=== PATIENT | female | born 1990 | race Caucasian/White ===

== ENCOUNTER 2016-11-27 21:02 | Emergency (ER) | payer SELFPAY ==
[2016-11-27 23:11] LABS: ABSOLUTE EOSINOPHILS # (AUTO) 0.3 10^3/uL (0.0-0.6); ABSOLUTE LYMPHOCYTES (AUTO) 2.3 10^3/uL (0.5-4.7); ABSOLUTE MONOCYTES (AUTO) 0.8 10^3/uL (0.1-1.4); ABSOLUTE NEUT (AUTO) 4.6 10^3/uL (1.7-8.2); BASOPHILS % (AUTO) 0.6 % (0-2); EOSINOPHILS % (AUTO) 3.3 % (0-6); HEMATOCRIT 38.7 % (36.0-47.0); HEMOGLOBIN 13.4 g/dL (12.0-15.5); HGB HCT DIFFERENCE 1.5; LYMPHOCYTES % (AUTO) 28.5 % (13-45); MEAN CORPUSCULAR HEMOGLOBIN 30.2 pg (27.0-33.4); MEAN CORPUSCULAR HGB CONC 34.5 g/dL (32.0-36.0); MEAN CORPUSCULAR VOLUME 87 fl (80-97); MONOCYTES % (AUTO) 10.2 % (3-13); RED BLOOD COUNT 4.42 10^6/uL (3.72-5.28); RED CELL DISTRIBUTION WIDTH 13.6 % (11.5-14.0); SEGMENTED NEUTROPHILS % (AUTO) 57.4 % (42-78)
[2016-11-27] MEDS ORDERED: MORPHINE SULFATE IR 15 MG TABLET PO ONE (23:12)
[2016-11-27] MEDS ORDERED: ONDANSETRON 4 MG TAB.RAPDIS PO ONE (23:12)
--- NOTE | 2016-11-27 23:14 | ER Document Report ---
ED General - General Chief Complaint: Rectal Bleeding Stated Complaint: BLOOD IN STOOL,ABDOMINAL PAIN,FEVER Time Seen by Provider: 11/27/16 22:23 Notes: Patient is a 26-year-old female who presents with 1 year of rectal bleeding, daily abdominal pain, no prior GI evaluation although she was evaluated in the emergency department on 2 separate occasions approximately one year ago with a CT scan of the abdomen and pelvis 2 with noted to be normal and presents with concerns that her stool now also contains mucus. She states that she often has bloody, loose bowel movements but has not ever had mucus in the stool. She also notes an associated diffuse abdominal cramping that is moderate in nature. Nothing improves or worsens her symptoms. She denies any associated vomiting but does note associated nausea. Notes that shes had a subjective fever at home but has not recorded temperature. She denies any dysuria, vaginal bleeding or vaginal discharge. No sitter abdominal pain today is unchanged from her daily abdominal pain. States she was unable to follow-up with GI medicine last year due to lack of insurance coverage which she now has. TRAVEL OUTSIDE OF THE [place] IN LAST 30 DAYS: No - Related Data Allergies/Adverse Reactions: latex [Latex] Allergy (Severe, Verified 07/17/16 09:34) swelling Past Medical History - General Information source: Patient - Social History Smoking Status: Never Smoker Frequency of alcohol use: None Drug Abuse: None Lives with: Spouse/Significant other Family History: Reviewed & Not Pertinent Patient has suicidal ideation: No Patient has homicidal ideation: No - Past Medical History Cardiac Medical History: Reports: Hx Heart Murmur - hx of Denies: Hx Hypertension Neurological Medical History: Denies: Hx Cerebrovascular Accident, Hx Seizures Renal/ Medical History: Denies: Hx Peritoneal Dialysis GI Medical History: Reports: Hx Gastroesophageal Reflux Disease, Hx Ulcer - gastric hx of. Denies: Hx Hiatal Hernia Psychiatric Medical History: Infectious Medical History: Denies: Hx HIV Past Surgical History: Reports: Hx Section - x 3, Hx Tubal Ligation - Immunizations Immunizations up to date: Yes Hx Diphtheria, Pertussis, Tetanus Vaccination: Yes - 2009 Review of Systems - Review of Systems Notes: Constitutional: Negative for fever. HENT: Negative for sore throat. Eyes: Negative for visual changes. Cardiovascular: Negative for chest pain. Respiratory: Negative for shortness of breath. Gastrointestinal: Positive for abdominal pain and hematochezia Genitourinary: Negative for dysuria. Musculoskeletal: Negative for back pain. Skin: Negative for rash. Neurological: Negative for headaches, weakness or numbness. 10 point ROS negative except as marked above and in HPI. Physical Exam - Vital signs Vitals: Temp Pulse Resp BP Pulse Ox 97.9 F 60 20 127/73 H 96 11/27/16 21:13 11/27/16 21:13 11/27/16 21:13 11/27/16 21:13 11/27/16 21:13 Interpretation: Normal Notes: PHYSICAL EXAMINATION: GENERAL: Well-appearing, well-nourished and in no acute distress. HEAD: Atraumatic, normocephalic. EYES: Pupils equal round and reactive to light, extraocular movements intact, sclera anicteric, conjunctiva are normal. ENT: nares patent, oropharynx clear without exudates. Moist mucous membranes. NECK: Normal range of motion, supple without lymphadenopathy LUNGS: Breath sounds clear to auscultation bilaterally and equal. No wheezes rales or rhonchi. HEART: Regular rate and rhythm without murmurs ABDOMEN: Soft, nontender, normoactive bowel sounds. No guarding, no rebound. No masses appreciated. Rectal: No gross blood or masses. Brown stool. EXTREMITIES: Normal range of motion, no pitting or edema. No cyanosis. NEUROLOGICAL: No focal neurological deficits. Moves all extremities spontaneously and on command. PSYCH: Normal mood, normal affect. SKIN: Warm, Dry, normal turgor, no rashes or lesions noted. Course - Re-evaluation Re-evalutation: 11/27/16 23:13 Patient presents with nearly one year of rectal bleeding and nearly daily abdominal pain. She presents today now with some mucus in the stool which is approximately come to the emergency department. She isn't nauseated without vomiting. Overall no focal abdominal tenderness on exam and she is otherwise well in appearance, vitals normal limits. Primary concern at this time would be for an inflammatory bowel disease given the duration of patient's symptoms and she has not yet been able to follow-up with GI. However, patient now has insurance she should be able to get expeditious outpatient GI evaluation including colonoscopy which I believe is the most diagnostically appropriate tests. Rectal exam here without any shira blood. Labs are otherwise unremarkable plan for discharge home with recommendations for close outpatient GI follow-up. 11/27/16 23:47 Laboratories overall unremarkable. Stool guaiac is negative. I have recommend close GI follow-up.At this time will discharge with return precautions and follow-up recommendations. Verbal discharge instructions given a the bedside and opportunity for questions given. Medication warnings reviewed. Patient is in agreement with this plan and has verbalized understanding of return precautions and the need for primary care follow-up in the next 24-72 hours. - Vital Signs Vital signs: Temp Pulse Resp BP Pulse Ox 97.9 F 60 12 123/67 97 11/27/16 21:13 11/27/16 21:13 11/27/16 23:45 11/27/16 23:01 11/27/16 23:45 - Laboratory Result Diagrams: 11/27/16 23:01 11/27/16 23:01 Laboratory results interpreted by me: 11/27/16 23:01 Plt Count 100 L Discharge - Discharge Clinical Impression: Rectal bleeding Abdominal pain Qualifiers: Abdominal location: generalized Qualified Code(s): R10.84 - Generalized abdominal pain Condition: Good Disposition: HOME, SELF-CARE Additional Instructions: You need to follow-up with GI medicine urgently given the duration of your symptoms. Your labs are otherwise normal today. Please take the Zofran that has been given to you as needed for nausea. Return if you have a fever greater than 101F, pass out, have worsening abdominal pain, or have any other symptoms that are worrisome to you.
[2016-11-27 23:16] VITALS: BP 123/67
[2016-11-27 23:25] LABS: ALANINE AMINOTRANSFERASE 24 U/L (9-52); ALBUMIN 3.9 g/dL (3.5-5.0); ALKALINE PHOSPHATASE 69 U/L (38-126); ANION GAP 11 (5-19); ASPARTATE AMINO TRANSFERASE 15 U/L (14-36); BILIRUBIN,DIRECT 0.2 mg/dL (0.0-0.4); BILIRUBIN,TOTAL 0.5 mg/dL (0.2-1.3); BLOOD UREA NITROGEN 10 mg/dL (7-20); CALCIUM 9.4 mg/dL (8.4-10.2); CARBON DIOXIDE 24 mmol/L (22-30); CHLORIDE 106 mmol/L (98-107); CREATININE RESULT 0.54 mg/dL (0.52-1.25); GLUCOSE 83 mg/dL (75-110); LIPASE 36.4 U/L (23-300); POTASSIUM 3.7 mmol/L (3.6-5.0); SODIUM 141.3 mmol/L (137-145); TOTAL PROTEIN 6.6 g/dL (6.3-8.2)
[2016-11-27] MEDS ORDERED: ONDANSETRON ODT 4 MG TAB (6 TAB/DSPK) PO PRN (23:48)
== END 2016-11-27 23:49 | disposition home or self-care (01) ==
LOC: ER 21:02
DX: K62.5 Hemorrhage of anus and rectum (principal); R10.84 Generalized abdominal pain; R19.5 Other fecal abnormalities; Z91.040 Latex allergy status; R11.0 Nausea; Z87.19 Personal history of other diseases of the digestive system; Z87.11 Personal history of peptic ulcer disease; Z98.51 Tubal ligation status
CPT/HCPCS: 99283; 36415; 83690; 84703; 85025; 82272; 80053; S0119

== ENCOUNTER → 2016-11-30 | Outpatient (CLI) | payer OTHER | LOC: CCC 10:09 | DX: R10.84 Generalized abdominal pain (principal) | CPT/HCPCS: 36415; 86677 ==

== ENCOUNTER 2017-04-19 23:00 | Emergency (ER) | payer SELFPAY ==
[2017-04-20] MEDS ORDERED: ASPIRIN 81 MG TABLET, CHEWABLE PO ONE (01:02)
[2017-04-20] MEDS ORDERED: ONDANSETRON 4 MG TAB.RAPDIS PO ONE (01:04)
--- NOTE | 2017-04-20 01:05 | ER Document Report ---
ED Medical Screen (RME) - General Chief Complaint: Chest Pain Stated Complaint: CHEST PAIN Time Seen by Provider: 04/20/17 01:02 Mode of Arrival: Ambulatory Information source: Patient Notes: Patient presents complaining of right-sided chest pain for the past 2 days. Patient does complain of nausea with headache. Patient states that she had a syncopal episode around 7 PM while standing today. Patient denies any cough or cold symptoms. Patient does report a family history history of early heart disease. hx: Tubal ligation, TRAVEL OUTSIDE OF THE [place] IN LAST 30 DAYS: No - Related Data Allergies/Adverse Reactions: latex [Latex] Allergy (Severe, Verified 07/17/16 09:34) swelling Past Medical History - Past Medical History Cardiac Medical History: Reports: Hx Heart Murmur - hx of Denies: Hx Hypertension Neurological Medical History: Denies: Hx Cerebrovascular Accident, Hx Seizures Renal/ Medical History: Denies: Hx Peritoneal Dialysis GI Medical History: Reports: Hx Gastroesophageal Reflux Disease, Hx Ulcer - gastric hx of. Denies: Hx Hiatal Hernia Psychiatric Medical History: Infectious Medical History: Denies: Hx HIV Past Surgical History: Reports: Hx Section - x 3, Hx Tubal Ligation - Immunizations Immunizations up to date: Yes Hx Diphtheria, Pertussis, Tetanus Vaccination: Yes - 2009 Physical Exam - Vital signs Vitals: Temp Pulse Resp BP Pulse Ox 98.3 F 88 18 121/72 96 04/19/17 23:23 04/19/17 23:23 04/19/17 23:23 04/19/17 23:23 04/19/17 23:23 Course - Vital Signs Vital signs: Temp Pulse Resp BP Pulse Ox 98.3 F 88 18 121/72 96 04/19/17 23:23 04/19/17 23:23 04/19/17 23:23 04/19/17 23:23 04/19/17 23:23
--- NOTE | 2017-04-20 01:49 | ER Document Report ---
ED General - General Chief Complaint: Chest Pain Stated Complaint: CHEST PAIN Time Seen by Provider: 04/20/17 01:02 Mode of Arrival: Ambulatory Notes: Patient is a 26-year-old female presents with complaint of pain that goes from her right upper chest into her right shoulder and upper right neck into the back of her head and then down her right arm. She said the pain started in her right chest and shoulder area before it started to radiate down her arm and up into her head. She said she also passed out today around 7 PM. She said she got up to go get water. She says she passed out when she walked to the sink. No fevers. No vomiting. No trauma. No diarrhea. No history of cardiac issues. She does not take any medications. She is otherwise healthy. TRAVEL OUTSIDE OF THE [place] IN LAST 30 DAYS: No - Related Data Allergies/Adverse Reactions: latex [Latex] Allergy (Severe, Verified 07/17/16 09:34) swelling Past Medical History - General Information source: Patient - Social History Smoking Status: Unknown if Ever Smoked Frequency of alcohol use: None Drug Abuse: None Family History: Reviewed & Not Pertinent Patient has suicidal ideation: No Patient has homicidal ideation: No - Past Medical History Cardiac Medical History: Reports: Hx Heart Murmur - hx of Denies: Hx Hypertension Neurological Medical History: Denies: Hx Cerebrovascular Accident, Hx Seizures Renal/ Medical History: Denies: Hx Peritoneal Dialysis GI Medical History: Reports: Hx Gastroesophageal Reflux Disease, Hx Ulcer - gastric hx of. Denies: Hx Hiatal Hernia Psychiatric Medical History: Infectious Medical History: Denies: Hx HIV Past Surgical History: Reports: Hx Section - x 3, Hx Tubal Ligation - Immunizations Immunizations up to date: Yes Hx Diphtheria, Pertussis, Tetanus Vaccination: Yes - 2009 Review of Systems - Review of Systems Notes: My Normal Review Basic REVIEW OF SYSTEMS: CONSTITUTIONAL : Denies fever, chills, or sweats. Denies recent illness. EENT: Denies eye, ear, throat, or mouth pain or symptoms. Denies nasal or sinus congestion. CARDIOVASCULAR: Right upper chest pain RESPIRATORY: Denies cough, cold, or chest congestion. Denies shortness of breath, difficulty breathing, or wheezing. GASTROINTESTINAL: Denies abdominal pain. Denies nausea, vomiting, or diarrhea. Denies constipation. Last BM: MUSCULOSKELETAL: Right shoulder pain SKIN: Denies rash or skin lesions.. NEUROLOGICAL: Denies altered mental status or loss of consciousness. Denies headache. Denies weakness or paralysis or loss of use of either side. Denies problems with gait or speech. Denies sensory or motor loss. ALL OTHER SYSTEMS REVIEWED AND NEGATIVE. Physical Exam - Vital signs Vitals: Temp Pulse Resp BP Pulse Ox 98.3 F 88 18 121/72 96 04/19/17 23:23 04/19/17 23:23 04/19/17 23:23 04/19/17 23:23 04/19/17 23:23 - Notes Notes: General Appearance: Well nourished, alert, cooperative, no acute distress, moderate obvious discomfort. Vitals: reviewed, See vital signs table. Head: no swelling or tenderness to the head Eyes: PERRL, EOMI, Conjuctiva clear Mouth: No decreasd moisture Chest wall: Pain to palpation over the right upper chest wall near the shoulder. Neck: Supple, pain to palpation over the right trapezius muscle going into the right cervical paraspinal musculature. Lungs: No wheezing, No rales, No rhonci, No accessory muscle use, good air exchange bilaterally. Heart: Normal rate, Regular rythm, No murmur, no rub Abdomen: Normal BS, soft, No rigidity, No abdominal tenderness, No guarding, no rebound, no abdominal masses, no organomegaly Extremities: strength 5/5 in all extremities, good pulses in all extremities, pain to palpation of the right shoulder and right trapezius muscle. Pain with movement of right shoulder., no edema. Skin: warm, dry, appropriate color, no rash Neuro: speech clear, oriented x 3, normal affect, responds appropriately to questions. Course - Re-evaluation Re-evalutation: 04/20/17 03:52 On exam patient's pain is easily reproducible with palpation does follow a cervical type pattern that the pain starts along the trapezius muscles and cervical paraspinal musculature and then radiates up into her head and then down into her right shoulder down her right arm and into her right upper chest. All these areas are very tender to touch. I did obtain a CT of her chest being that the pain did come on suddenly and does have this lateralizing type of symptom from chest area and therefore I want to rule out possibility of dissection. CT was negative. This time patient is safe to be discharged home. I encouraged her return to ER immediately if she has worsening pain, focal to bleeding, fevers, or feels unwell. Patient will be placed on muscle relaxer as well as anti-inflammatory medications. Patient agrees with plan and will be discharged home. Dictation of this chart was performed using voice recognition software; therefore, there may be some unintended grammatical errors. - Vital Signs Vital signs: Temp Pulse Resp BP Pulse Ox 98.3 F 88 21 H 121/72 96 04/19/17 23:23 04/19/17 23:23 04/20/17 02:45 04/19/17 23:23 04/20/17 02:45 - Laboratory Result Diagrams: 04/20/17 01:45 04/20/17 01:45 Laboratory results interpreted by me: 04/20/17 04/20/17 04/20/17 01:35 01:45 01:45 Plt Count 101 L Chloride 109 H Urine Blood SMALL H Urine Urobilinogen 4.0 H Ur Leukocyte Esterase MODERATE H - EKG Interpretation by Me Additional EKG results interpreted by me: 04/20/17 01:49 EKG is reviewed and interpreted by me. EKG shows normal sinus rhythm with rate of [address] segment elevation or depression. No ischemic T-wave inversions. DE interval, QRS duration, QTc intervals are within normal range. No old EKG available for comparison. 04/20/17 02:57 EKG #2 is reviewed and interpreted by me. EKG shows normal sinus rhythm with a rate of [address] segment elevation or depression. Lead V5 is a large amount of artifact making it difficult to interpret. No ischemic appearing T waves. DE interval, QRS duration, QTc intervals are within normal range. Discharge - Discharge Clinical Impression: Neck pain Headache Qualifiers: Headache type: unspecified Headache chronicity pattern: acute headache Intractability: not intractable Qualified Code(s): R51 - Headache Chest pain Qualifiers: Chest pain type: unspecified Qualified Code(s): R07.9 - Chest pain, unspecified Condition: Good Disposition: HOME, SELF-CARE Additional Instructions: Your laboratory evaluation does not show any concerning abnormalities. CT scan was performed of your chest to rule out blood clots in your lungs and something called an aortic dissection. The CT scan was normal. Your pain on exam seems very consistent with that of pain radiating from the neck. I will place you on muscle relaxers and anti-inflammatories for the next few days. We will have you use warm compresses. I will give you a few days off work. I encourage you to return to the ER if you have worsening pain, difficulty breathing, or fevers. Prescriptions: Cyclobenzaprine HCl [Flexeril 10 mg Tablet] 10 mg PO TIDP PRN #15 tab PRN Reason: Naproxen [Naprosyn 250 mg Tablet] 250 mg PO BID #15 tablet Forms: Return to Work
[2017-04-20] MEDS ORDERED: NORMAL SALINE 1000 ML 1,000 ML IV ONE (01:57)
[2017-04-20] MEDS ORDERED: MORPHINE SULFATE 10 MG/ML INJ IV ONE (01:57)
[2017-04-20 02:02] LABS: ABSOLUTE EOSINOPHILS # (AUTO) 0.1 10^3/uL (0.0-0.6); ABSOLUTE LYMPHOCYTES (AUTO) 1.9 10^3/uL (0.5-4.7); ABSOLUTE MONOCYTES (AUTO) 0.5 10^3/uL (0.1-1.4); ABSOLUTE NEUT (AUTO) 2.2 10^3/uL (1.7-8.2); BASOPHILS % (AUTO) 0.3 % (0-2); EOSINOPHILS % (AUTO) 1.5 % (0-6); HEMATOCRIT 40.3 % (36.0-47.0); HEMOGLOBIN 14.2 g/dL (12.0-15.5); HGB HCT DIFFERENCE 2.3; MEAN CORPUSCULAR HEMOGLOBIN 30.8 pg (27.0-33.4); MEAN CORPUSCULAR HGB CONC 35.3 g/dL (32.0-36.0); MEAN CORPUSCULAR VOLUME 87 fl (80-97); MONOCYTES % (AUTO) 10.2 % (3-13); RED BLOOD COUNT 4.61 10^6/uL (3.72-5.28); RED CELL DISTRIBUTION WIDTH 13.4 % (11.5-14.0); WHITE BLOOD COUNT 4.6 10^3/uL (4.0-10.5)
[2017-04-20 02:24] LABS: ALANINE AMINOTRANSFERASE 27 U/L (9-52); ALKALINE PHOSPHATASE 58 U/L (38-126); ANION GAP 11 (5-19); ASPARTATE AMINO TRANSFERASE 17 U/L (14-36); BILIRUBIN,DIRECT 0.3 mg/dL (0.0-0.4); BILIRUBIN,TOTAL 0.5 mg/dL (0.2-1.3); BLOOD UREA NITROGEN 11 mg/dL (7-20); CALCIUM 9.2 mg/dL (8.4-10.2); CARBON DIOXIDE 23 mmol/L (22-30); CHLORIDE 109 mmol/L (98-107); CREATININE RESULT 0.62 mg/dL (0.52-1.25); GLUCOSE 88 mg/dL (75-110); POTASSIUM 3.9 mmol/L (3.6-5.0); SODIUM 143.4 mmol/L (137-145); TOTAL PROTEIN 6.6 g/dL (6.3-8.2)
[2017-04-20 02:25] LABS: APPEARANCE,URINE SLIGHTLY-CLOUDY; BILIRUBIN,URINE NEGATIVE (NEGATIVE); GLUCOSE, URINE NEGATIVE (NEGATIVE); KETONES,URINE NEGATIVE (NEGATIVE); LEUKOCYTE ESTERASE,URINE MODERATE (NEGATIVE); NITRITE,URINE NEGATIVE (NEGATIVE); PROTEIN,URINE NEGATIVE (NEGATIVE); URINE SPECIFIC GRAVITY 1.028
[2017-04-20 02:52] LABS: URINE BARBITURATES SCREEN NEGATIVE; URINE METHADONE SCREEN NEGATIVE; URINE OPIATES LOW NEGATIVE; URINE PHENCYCLIDINE SCREEN NEGATIVE
--- NOTE | 2017-04-20 03:34 | RADIOLOGY REPORT (SQ) ---
EXAM DESCRIPTION: CHEST PA/LAT CLINICAL HISTORY: 26 years, Female, cp COMPARISON: Chest radiographs of July 17, 2016. NUMBER OF VIEWS: 2 TECHNIQUE: Radiographic technique. LIMITATIONS: None. FINDINGS: Cardiac size and pulmonary vasculature are normal. Lungs are clear. No pleural effusions or pneumothorax. Bones are intact on this single view. No free peritoneal gas layering under either hemidiaphragm. IMPRESSION: Normal chest radiographs. 2010 [employer]- All Rights Reserved
--- NOTE | 2017-04-20 03:39 | RADIOLOGY REPORT (SQ) ---
EXAM: CT ANGIOGRAM OF THE CHEST USING INTRAVENOUS ADMINISTRATION OF NONIONIC IODINATED CONTRAST MATERIAL. CLINICAL INDICATION: Chest pain. Right shoulder pain. Right neck pain. COMPARISON: Today's chest radiographs. TECHNIQUE: Using helical technique, thin section axial images were performed through the chest after the uncomplicated intravenous administration of 100 mL Isovue-370. Axially acquired data was then transferred to a dedicated CT workstation to facilitate parasagittal, coronal and volumetric 3-D reconstructions. Md Physician Dermatologist volumetric 3-D reconstructions for this examination were permanently stored on the PACS system. FINDINGS: Great vessels of the chest are normal. No pulmonary embolism. No thoracic aortic aneurysm or dissection given cardiac motion artifact. Greatest sagittal diameter of the ascending thoracic aorta measures 2.2 cm. Cardiac size and contour normal. No pericardial effusion. Probable right basilar scar versus atelectasis. Lungs are otherwise clear. No pleural effusions or pneumothorax. Bones are normal. IMPRESSION: Minimal right basilar scar versus atelectasis. Otherwise, normal chest CTA examination. No pulmonary embolism or thoracic aortic aneurysm/dissection.
[2017-04-20] MEDS ORDERED: KETOROLAC TROMETHAMINE INJ/PF 30 MG/1 ML SDV IV ONE (03:48)
[2017-04-20 04:22] VITALS: BP 115/71
--- NOTE | 2017-04-20 04:46 | EKG REPORT ---
SEVERITY:- NORMAL ECG - SINUS RHYTHM : Confirmed by: Marybel Loomis MD 20-Apr-2017 04:29:14
--- NOTE | 2017-04-20 18:20 | EKG REPORT ---
SEVERITY:- NORMAL ECG - SINUS RHYTHM : Confirmed by: Marybel Loomis MD 20-Apr-2017 18:18:54
== END 2017-04-20 04:31 | disposition home or self-care (01) ==
LOC: ER 23:00
DX: R07.9 Chest pain, unspecified (principal); M54.2 Cervicalgia; R51 Headache; Z91.040 Latex allergy status; Z98.51 Tubal ligation status
CPT/HCPCS: 93005 ×2; 99285; 96361; 96374; 96375; 36415; 84703; 85025; 80053; 81001; 80307; 71020; 71275; 93010 ×2; S0119; J1885; J2270; J7030

== ENCOUNTER 2017-12-03 10:04 | Emergency (ER) | payer SELFPAY ==
[2017-12-03] MEDS ORDERED: ONDANSETRON HCL INJ/PF 4 MG/2 ML SDV IV ONE (10:29)
[2017-12-03] MEDS ORDERED: FENTANYL CITRATE INJ/PF 100 MCG/2 ML AMPUL IV ONE (10:30)
--- NOTE | 2017-12-03 10:31 | ER Document Report ---
ED Medical Screen (RME) - General Chief Complaint: Abdominal Pain Stated Complaint: ABDOMINAL PAIN Time Seen by Provider: 12/03/17 10:26 Notes: RAPID MEDICAL EVALUATION DISCLOSURE I have seen this patient as part of a Rapid Medical Evaluation and, if applicable, placed any initially appropriate orders. The patient will be seen and fully evaluated, including a full history and physical exam, by a provider ( in Main ED or Fast Track) when a room becomes available. 27-year-old female here with complaints of lower abdominal pain nausea vomiting diarrhea ongoing for the past 5 days. She reports that pain is worse with walking moving and car rides. She is tried Pepto-Bismol but is unable to keep it down. Denies vaginal bleeding discharge dysuria hematuria frequency hesitancy. EXAM Exquisitely tender right lower quadrant Minimal tenderness suprapubic region No tenderness left lower or plata-upper quadrants TRAVEL OUTSIDE OF THE [place] IN LAST 30 DAYS: No - Related Data Allergies/Adverse Reactions: latex [Latex] Allergy (Severe, Verified 07/17/16 09:34) swelling Past Medical History - Past Medical History Cardiac Medical History: Reports: Hx Heart Murmur - hx of Denies: Hx Hypertension Neurological Medical History: Denies: Hx Cerebrovascular Accident, Hx Seizures Renal/ Medical History: Denies: Hx Peritoneal Dialysis GI Medical History: Reports: Hx Gastroesophageal Reflux Disease, Hx Ulcer - gastric hx of. Denies: Hx Hiatal Hernia Psychiatric Medical History: Infectious Medical History: Denies: Hx HIV Past Surgical History: Reports: Hx Section - x 3, Hx Tubal Ligation - Immunizations Immunizations up to date: Yes Hx Diphtheria, Pertussis, Tetanus Vaccination: Yes - 2009 Physical Exam - Vital signs Vitals: Temp Pulse Resp BP Pulse Ox 98.9 F 82 16 120/82 98 12/03/17 10:13 12/03/17 10:13 12/03/17 10:13 12/03/17 10:13 12/03/17 10:13 Course - Vital Signs Vital signs: Temp Pulse Resp BP Pulse Ox 98.9 F 82 16 120/82 98 12/03/17 10:13 12/03/17 10:13 12/03/17 10:13 12/03/17 10:13 12/03/17 10:13
[2017-12-03 11:25] LABS: ABSOLUTE EOSINOPHILS # (AUTO) 0.2 10^3/uL (0.0-0.6); ABSOLUTE LYMPHOCYTES (AUTO) 2.1 10^3/uL (0.5-4.7); ABSOLUTE MONOCYTES (AUTO) 0.7 10^3/uL (0.1-1.4); ABSOLUTE NEUT (AUTO) 6.7 10^3/uL (1.7-8.2); BASOPHILS % (AUTO) 0.3 % (0-2); EOSINOPHILS % (AUTO) 2.5 % (0-6); HEMOGLOBIN 14.7 g/dL (12.0-15.5); LYMPHOCYTES % (AUTO) 21.7 % (13-45); MEAN CORPUSCULAR HEMOGLOBIN 30.6 pg (27.0-33.4); MEAN CORPUSCULAR HGB CONC 34.1 g/dL (32.0-36.0); MEAN CORPUSCULAR VOLUME 90 fl (80-97); MONOCYTES % (AUTO) 7.2 % (3-13); PLATELET COUNT 123 10^3/uL (150-450); RED CELL DISTRIBUTION WIDTH 13.7 % (11.5-14.0); SEGMENTED NEUTROPHILS % (AUTO) 68.3 % (42-78); TOTAL CELLS COUNTED % (AUTO) 100 %; WHITE BLOOD COUNT 9.8 10^3/uL (4.0-10.5)
[2017-12-03 12:00] LABS: APPEARANCE,URINE SLIGHTLY-CLOUDY; BILIRUBIN,URINE NEGATIVE (NEGATIVE); COLOR,URINE YELLOW; GLUCOSE, URINE NEGATIVE (NEGATIVE); KETONES,URINE NEGATIVE (NEGATIVE); LEUKOCYTE ESTERASE,URINE MODERATE (NEGATIVE); NITRITE,URINE NEGATIVE (NEGATIVE); PROTEIN,URINE NEGATIVE (NEGATIVE); URINE SPECIFIC GRAVITY 1.021; UROBILINOGEN,URINE NEGATIVE mg/dL (<2.0)
--- NOTE | 2017-12-03 12:16 | RADIOLOGY REPORT (SQ) ---
EXAM DESCRIPTION: CT ABD/PELVIS WITH IV ONLY COMPLETED DATE/TIME: 12/03/2017 12:02 pm REASON FOR STUDY: RLQ pain; eval appendix COMPARISON: 12/16/2015. TECHNIQUE: CT scan of the abdomen and pelvis performed using helical scanning technique with dynamic intravenous contrast injection. No oral contrast. Images reviewed with lung, soft tissue, and bone windows. Reconstructed coronal and sagittal MPR images reviewed. Delayed images for evaluation of the urinary system also acquired. All images stored on PACS. All CT scanners at this facility use dose modulation, iterative reconstruction, and/or weight based d osing when appropriate to reduce radiation dose to as low as reasonably achievable (ALARA). [facility]: Dose Right [facility]: CareDose [facility]: Dose Right [facility]: Teradose 4D [facility]: Attachments.me CONTRAST TYPE AND DOSE: contrast/concentration: Isovue 370.00 mg/ml; Total Contrast Delivered: 64.0 ml; Total Saline Delivered: 65.0 ml RENAL FUNCTION: None required. The patient is less than 50 years old. RADIATION DOSE: CT Rad equipment meets quality standard of care and radiation dose reduction techniq ues were employed. CTDIvol: 5.0 - 6.3 mGy. DLP: 594 mGy-cm.. LIMITATIONS: None. FINDINGS: LOWER CHEST: No significant findings. No nodules or infiltrates. LIVER: Normal size. No masses. No dilated ducts. SPLEEN: Normal size. No focal lesions. PANCREAS: No masses. No significant calcifications. No adjacent inflammation or peripancreatic fluid collections. Pancreatic duct not dilated. GALLBLADDER: No identified stones by CT criteria. No inflammatory changes to suggest cholecystitis. ADRENAL GLANDS: No significant masses or asymmetry. RIGHT KIDNEY AND URETER: No solid masses. No significant calcifications. No hydronephrosis or hyd roureter. LEFT KIDNEY AND URETER: No solid masses. No significant calcifications. No hydronephrosis or hydr oureter. AORTA AND VESSELS: No aneurysm. No dissection. Renal arteries, SMA, celiac without stenosis. RETROPERITONEUM: No retroperitoneal adenopathy, hemorrhage or masses. BOWEL AND PERITONEAL CAVITY: No masses or inflammatory changes. No free fluid or peritoneal masses. APPENDIX: Normal. PELVIS: No mass. No free fluid. Normal bladder. ABDOMINAL WALL: No masses. No hernias. BONES: No significant or acute findings. OTHER: No other significant finding. IMPRESSION: NO SIGNIFICANT OR ACUTE FINDING IN THE ABDOMEN OR PELVIS ON CT SCAN WITH IV CONTRAST. TECHNICAL DOCUMENTATION: JOB ID: [id number] Quality ID # [id number]: Final reports with documentation of one or more dose reduction techniques (e.g., Au tomated exposure control, adjustment of the mA and/or kV according to patient size, use of iterative reconstruction technique) 2010 [employer]- All Rights Reserved Reading location - IP/workstation name: [email or web address]
[2017-12-03 12:25] LABS: ALANINE AMINOTRANSFERASE 23 U/L (9-52); ALBUMIN 4.4 g/dL (3.5-5.0); ALKALINE PHOSPHATASE 54 U/L (38-126); ANION GAP 14 (5-19); ASPARTATE AMINO TRANSFERASE 16 U/L (14-36); BILIRUBIN,DIRECT 0.3 mg/dL (0.0-0.4); BILIRUBIN,TOTAL 0.7 mg/dL (0.2-1.3); BLOOD UREA NITROGEN 16 mg/dL (7-20); CALCIUM 9.8 mg/dL (8.4-10.2); CARBON DIOXIDE 24 mmol/L (22-30); CHLORIDE 107 mmol/L (98-107); GLUCOSE 95 mg/dL (75-110); LIPASE 45.9 U/L (23-300); POTASSIUM 4.3 mmol/L (3.6-5.0); SODIUM 144.6 mmol/L (137-145); TOTAL PROTEIN 6.7 g/dL (6.3-8.2)
[2017-12-03] MEDS ORDERED: LIDOCAINE 2% VISCOUS SOLN 20 ML UDCUP PO ONE (13:44)
[2017-12-03] MEDS ORDERED: METOCLOPRAMIDE HCL ORAL SOLN 10 MG/10 ML UDCUP PO ONE (13:44)
[2017-12-03] MEDS ORDERED: MAG HYDROX/AL HYDROX/SIMETH SUSP 30 ML UDCUP PO ONE (13:44)
[2017-12-03] MEDS ORDERED: CEFTRIAXONE INJ 1000 MG VIAL IV ONE (13:45)
--- NOTE | 2017-12-03 14:37 | ER Document Report ---
ED GI/ - General Chief Complaint: Abdominal Pain Stated Complaint: ABDOMINAL PAIN Time Seen by Provider: 12/03/17 10:26 Mode of Arrival: Ambulatory Information source: Patient Notes: Pt is a 27 year old female who presents to the ER today for 5 days of progressively worsening lower abdominal pain with mucous in her stool. Pt states her stool is normal, just there's mucous in it. She denies dysuria, abnormal vaginal discharge, nausea, vomiting, fever, chills. She states that the lower abdominal pain is worse in the center, but hurts all across her lower abdomen and that she can't eat because of the pain. She states the pain starts "as soon as I eat something." She points to her lower abdomen when she says this. She does state that her stools have been dark and tarry. She does admit that she was taking pepto bismol during the first three days. TRAVEL OUTSIDE OF THE [place] IN LAST 30 DAYS: No - Related Data Allergies/Adverse Reactions: latex [Latex] Allergy (Severe, Verified 07/17/16 09:34) swelling Past Medical History - General Information source: Patient - Social History Smoking Status: Current Every Day Smoker Frequency of alcohol use: Rare Drug Abuse: None Family History: Reviewed & Not Pertinent Patient has suicidal ideation: No Patient has homicidal ideation: No - Past Medical History Cardiac Medical History: Reports: Hx Heart Murmur - hx of Denies: Hx Hypertension Neurological Medical History: Denies: Hx Cerebrovascular Accident, Hx Seizures Renal/ Medical History: Denies: Hx Peritoneal Dialysis GI Medical History: Reports: Hx Gastroesophageal Reflux Disease, Hx Ulcer - gastric hx of. Denies: Hx Hiatal Hernia Psychiatric Medical History: Infectious Medical History: Denies: Hx HIV Past Surgical History: Reports: Hx Section - x 3, Hx Tubal Ligation - Immunizations Immunizations up to date: Yes Hx Diphtheria, Pertussis, Tetanus Vaccination: Yes - 2009 Review of Systems - Review of Systems Constitutional: No symptoms reported EENT: No symptoms reported Cardiovascular: No symptoms reported Respiratory: No symptoms reported Gastrointestinal: See HPI Genitourinary: No symptoms reported Female Genitourinary: No symptoms reported Musculoskeletal: No symptoms reported Skin: No symptoms reported Hematologic/Lymphatic: No symptoms reported Neurological/Psychological: No symptoms reported Physical Exam - Vital signs Vitals: Temp Pulse Resp BP Pulse Ox 98.9 F 82 16 120/82 98 05/18/18 10:13 12/03/17 10:13 12/03/17 10:13 12/03/17 10:13 12/03/17 10:13 - Notes Notes: PHYSICAL EXAMINATION: GENERAL: Well-appearing, smiling, and in no acute distress. HEAD: Atraumatic, normocephalic. EYES: Pupils equal round and reactive to light, extraocular movements intact, sclera anicteric, conjunctiva are normal. NECK: Normal range of motion, supple without lymphadenopathy LUNGS: CTAB and equal. No wheezes rales or rhonchi. HEART: Regular rate and rhythm without murmurs ABDOMEN: Soft, suprapubic tenderness. No guarding, no rebound BACK: no vertebral tenderness, normal ROM Rectal: no hemorrhoids noted, no bleeding, normal tone, normal tenderness GI/: no CVA tenderness EXTREMITIES: Normal range of motion, no pitting edema. No cyanosis. NEUROLOGICAL: Cranial nerves grossly intact. Normal sensory/motor exams. PSYCH: Normal mood, normal affect. SKIN: Warm, Dry, normal turgor, no rashes or lesions noted Course - Re-evaluation Re-evalutation: 12/03/17 21:09 labwork is unremarkable today except for some WBC and leukocytes, blood on UA today. Treated pt with rocephin while here. GI cocktail did improve her pain. I suspect pt likely has IBS, but she needs to get that confirmed by her pcp. stool occult negative. pt sent home of keflex for uti and bentyl for IBS pain. - Vital Signs Vital signs: Temp Pulse Resp BP Pulse Ox 98.0 F 71 16 115/80 97 12/03/17 15:02 12/03/17 15:02 12/03/17 15:02 12/03/17 15:02 12/03/17 15:02 - Laboratory Result Diagrams: 12/03/17 10:54 12/03/17 10:54 Laboratory results interpreted by me: 12/03/17 12/03/17 12/03/17 10:54 10:54 10:54 Plt Count 123 L Creatinine 0.51 L Urine Blood SMALL H Ur Leukocyte Esterase MODERATE H Discharge - Discharge Clinical Impression: Abdominal pain Qualifiers: Abdominal location: unspecified location Qualified Code(s): R10.9 - Unspecified abdominal pain UTI (urinary tract infection) Qualifiers: Urinary tract infection type: site unspecified Hematuria presence: without hematuria Qualified Code(s): N39.0 - Urinary tract infection, site not specified Condition: Stable Disposition: HOME, SELF-CARE Additional Instructions: Return immediately for any new or worsening symptoms. Follow up with primary care provider, call tomorrow to make followup appointment. Prescriptions: Cephalexin Monohydrate [Keflex 500 mg Capsule] 500 mg PO BID 7 Days #14 capsule Dicyclomine HCl [Bentyl 20 mg Tablet] 20 mg PO BID #20 tablet
[2017-12-03 15:04] VITALS: BP 115/80
== END 2017-12-03 15:04 | disposition home or self-care (01) ==
LOC: ER 10:04
DX: N39.0 Urinary tract infection, site not specified (principal); R10.30 Lower abdominal pain, unspecified; Z98.51 Tubal ligation status; Z91.040 Latex allergy status
CPT/HCPCS: 99284; 96375; 96365; 36415; 83690; 85025; 82272; 81025; 80053; 81001; 74177; J3010; J3490; J0696; J2405

== ENCOUNTER 2017-12-08 00:31 | Emergency (ER) | payer SELFPAY ==
[2017-12-08] MEDS ORDERED: MORPHINE SULFATE IR 15 MG TABLET PO ONE (01:02)
[2017-12-08] MEDS ORDERED: PROMETHAZINE HCL 25 MG TABLET PO ONE (01:02)
--- NOTE | 2017-12-08 01:06 | ER Document Report ---
ED GI/ - General Chief Complaint: Abdominal Pain Stated Complaint: ABDOMINAL PAIN Time Seen by Provider: 12/08/17 00:49 Notes: Patient is a 27-year-old female who comes emergency department for chief complaint of abdominal pains, loose stools, an episode of vomiting, belching, and reduced appetite. Pain is in the general mid to upper abdomen today, although was mainly lower last time. She states she was seen about a week ago, had a CAT scan and a workup that showed a urinary tract infection, she has taken antibiotics, she is taking Bentyl for discomfort, she states she feels like she is getting worse. She denies fever, she states she has had episodes of bloody stools in the past but none recently, she has also had episodes where she accidentally soils herself with stool (although none over the past couple of days). She has had C-sections, she smokes, she denies any other medical history, surgeries, or substance use. TRAVEL OUTSIDE OF THE [place] IN LAST 30 DAYS: No - Related Data Allergies/Adverse Reactions: latex [Latex] Allergy (Severe, Verified 07/17/16 09:34) swelling Past Medical History - General Information source: Patient - Social History Smoking Status: Never Smoker Frequency of alcohol use: None Drug Abuse: None Lives with: Family Family History: Reviewed & Not Pertinent - Past Medical History Cardiac Medical History: Reports: Hx Heart Murmur Denies: Hx Hypertension Neurological Medical History: Denies: Hx Cerebrovascular Accident, Hx Seizures Renal/ Medical History: Denies: Hx Peritoneal Dialysis GI Medical History: Reports: Hx Gastroesophageal Reflux Disease, Hx Ulcer - gastric hx of. Denies: Hx Hiatal Hernia Psychiatric Medical History: Infectious Medical History: Denies: Hx HIV Past Surgical History: Reports: Hx Section - x 3, Hx Tubal Ligation - Immunizations Immunizations up to date: Yes Hx Diphtheria, Pertussis, Tetanus Vaccination: Yes - 2009 Review of Systems - Review of Systems Constitutional: No symptoms reported EENT: No symptoms reported Cardiovascular: No symptoms reported Respiratory: No symptoms reported Gastrointestinal: See HPI Genitourinary: No symptoms reported Female Genitourinary: No symptoms reported Musculoskeletal: No symptoms reported Skin: No symptoms reported Hematologic/Lymphatic: No symptoms reported Neurological/Psychological: No symptoms reported Physical Exam - Vital signs Vitals: Temp Pulse Resp BP Pulse Ox 97.4 F 71 16 111/51 L 96 05/23/18 06:15 12/08/17 06:15 12/08/17 06:15 12/08/17 06:15 12/08/17 06:15 Interpretation: Normal - General General appearance: Appears well In distress: None - HEENT Head: Normocephalic, Atraumatic Eyes: Normal Conjunctiva: Normal Extraocular movements intact: Yes Eyelashes: Normal Pupils: PERRL Mouth/Lips: Normal Mucous membranes: Dry Pharynx: Normal Neck: Normal - Respiratory Respiratory status: No respiratory distress Chest status: Nontender Breath sounds: Normal Chest palpation: Normal - Cardiovascular Rhythm: Regular. No: Tachycardia Heart sounds: Normal auscultation, S1 appreciated, S2 appreciated Murmur: No Normal capillary refill: Yes - Abdominal Inspection: Normal Distension: No distension Bowel sounds: Normal Tenderness: Tender - generalized mild tenderness; non-specific, no guarding, no rigidity - Back Back: Normal, Nontender. No: Tender - Extremities General upper extremity: Normal inspection, Nontender, Normal strength, Normal temperature General lower extremity: Normal inspection, Nontender, Normal strength, Normal temperature - Neurological Neuro grossly intact: Yes Cognition: Normal Orientation: AAOx4 Lesia Coma Scale Eye Opening: Spontaneous Lesia Coma Scale Verbal: Oriented Lesia Coma Scale Motor: Obeys Commands Dora Coma Scale Total: 15 Speech: Normal Motor strength normal: LUE, RUE, LLE, RLE Sensory: Normal - Psychological Associated symptoms: Normal affect, Normal mood - Skin Skin Temperature: Warm Skin Moisture: Dry Skin Color: Normal Course - Re-evaluation Re-evalutation: Patient vomited after initial PO meds. Still unremarkable exam, placing IV and giving IV meds/fluids. CBC unremarkable, chemistry unremarkable, urine unremarkable. Patient just had a Cat scan which was normal, her examination is benign. Low suspicion of abscess , perforation, or acute abdomen otherwise. Patient reexamined after IV fluids and medications, she is drinking fluids without difficulty, she states she does feel better. Patient was given dexamethasone after discussion because of her described symptoms being suggestive of possible inflammatory bowel disease. She will be referred with primary care and gastroenterology. Discussed return precautions in detail, patient states understanding and agreement. - Vital Signs Vital signs: Temp Pulse Resp BP Pulse Ox 97.4 F 71 16 111/51 L 96 12/08/17 06:15 12/08/17 06:15 12/08/17 06:15 12/08/17 06:15 12/08/17 06:15 - Laboratory Result Diagrams: 12/08/17 01:35 12/08/17 01:35 Laboratory results interpreted by me: 12/08/17 12/08/17 12/08/17 01:35 01:35 01:59 Plt Count 114 L Sodium 145.5 H Chloride 113 H Carbon Dioxide 21 L Creatinine 0.50 L Ur Leukocyte Esterase MODERATE H Discharge - Discharge Clinical Impression: Vomiting Qualifiers: Vomiting type: unspecified Vomiting Intractability: non-intractable Nausea presence: with nausea Qualified Code(s): R11.2 - Nausea with vomiting, unspecified Abdominal pain Qualifiers: Abdominal location: generalized Qualified Code(s): R10.84 - Generalized abdominal pain Condition: Stable Disposition: HOME, SELF-CARE Additional Instructions: Your symptoms are suggestive of an inflammatory bowel disease but this is not certain at this time. You have been medicated for this, I recommend taking your nausea medication if needed, start with bland food and slowly progress. Follow-up with the primary care referrals ([place] [facility] Follow -up with the gastroenterology referral as well ([place]). Return if you worsen including fever, uncontrolled vomiting, severe abdominal pain or swelling, or any other concerning symptoms. Prescriptions: Famotidine [Pepcid 20 mg Tablet] 20 mg PO BID PRN #20 tablet PRN Reason: Metoclopramide HCl [Reglan] 5 mg PO ASDIR PRN #30 tablet PRN Reason:
[2017-12-08 01:53] LABS: ABSOLUTE BASOPHILS # (AUTO) 0.1 10^3/uL (0.0-0.2); ABSOLUTE EOSINOPHILS # (AUTO) 0.4 10^3/uL (0.0-0.6); ABSOLUTE LYMPHOCYTES (AUTO) 2.7 10^3/uL (0.5-4.7); ABSOLUTE MONOCYTES (AUTO) 0.8 10^3/uL (0.1-1.4); ABSOLUTE NEUT (AUTO) 6.2 10^3/uL (1.7-8.2); BASOPHILS % (AUTO) 0.5 % (0-2); EOSINOPHILS % (AUTO) 3.5 % (0-6); HEMATOCRIT 40.4 % (36.0-47.0); HEMOGLOBIN 13.7 g/dL (12.0-15.5); LYMPHOCYTES % (AUTO) 27.2 % (13-45); MEAN CORPUSCULAR HEMOGLOBIN 30.5 pg (27.0-33.4); MEAN CORPUSCULAR HGB CONC 34.1 g/dL (32.0-36.0); MEAN CORPUSCULAR VOLUME 90 fl (80-97); MONOCYTES % (AUTO) 7.7 % (3-13); PLATELET COUNT 114 10^3/uL (150-450); RED CELL DISTRIBUTION WIDTH 13.6 % (11.5-14.0); SEGMENTED NEUTROPHILS % (AUTO) 61.1 % (42-78); TOTAL CELLS COUNTED % (AUTO) 100 %; WHITE BLOOD COUNT 10.1 10^3/uL (4.0-10.5)
[2017-12-08 02:03] LABS: ALANINE AMINOTRANSFERASE 26 U/L (9-52); ALBUMIN 3.9 g/dL (3.5-5.0); ALKALINE PHOSPHATASE 55 U/L (38-126); ANION GAP 12 (5-19); ASPARTATE AMINO TRANSFERASE 14 U/L (14-36); BILIRUBIN,DIRECT 0.2 mg/dL (0.0-0.4); BILIRUBIN,TOTAL 0.2 mg/dL (0.2-1.3); BLOOD UREA NITROGEN 14 mg/dL (7-20); CARBON DIOXIDE 21 mmol/L (22-30); CHLORIDE 113 mmol/L (98-107); GLUCOSE 96 mg/dL (75-110); LIPASE 61.9 U/L (23-300); SODIUM 145.5 mmol/L (137-145); TOTAL PROTEIN 6.4 g/dL (6.3-8.2)
[2017-12-08] MEDS ORDERED: ONDANSETRON HCL INJ/PF 4 MG/2 ML SDV IV ONE (02:07)
[2017-12-08] MEDS ORDERED: NORMAL SALINE 1000 ML 1,000 ML IV ONE (02:07)
[2017-12-08 02:18] LABS: APPEARANCE,URINE SLIGHTLY-CLOUDY; BILIRUBIN,URINE NEGATIVE (NEGATIVE); COLOR,URINE YELLOW; GLUCOSE, URINE NEGATIVE (NEGATIVE); KETONES,URINE NEGATIVE (NEGATIVE); LEUKOCYTE ESTERASE,URINE MODERATE (NEGATIVE); NITRITE,URINE NEGATIVE (NEGATIVE); PROTEIN,URINE NEGATIVE (NEGATIVE); URINE SPECIFIC GRAVITY 1.025; UROBILINOGEN,URINE NEGATIVE mg/dL (<2.0)
[2017-12-08] MEDS ORDERED: DIPHENHYDRAMINE HCL 50 MG/ML VIAL IV ONE (02:37)
[2017-12-08] MEDS ORDERED: METOCLOPRAMIDE HCL INJ/PF 10 MG/2 ML SDV IV ONE (02:37)
[2017-12-08] MEDS ORDERED: DEXAMETHASONE SOD PHOS INJ 10 MG/1 ML VIAL IV ONE (02:55)
[2017-12-08] MEDS ORDERED: HYDROCODONE/ACETAMINOPHEN 5-325 MG (6 TAB/ER DISP) PO PRN (05:39)
[2017-12-08 06:16] VITALS: BP 111/51
== END 2017-12-08 06:13 | disposition home or self-care (01) ==
LOC: ER 00:31
DX: R10.84 Generalized abdominal pain (principal); R11.2 Nausea with vomiting, unspecified; R19.7 Diarrhea, unspecified; R14.2 Eructation; R63.0 Anorexia
CPT/HCPCS: 99284; 96361; 96374; 96375; 36415; 83690; 85025; 81025; 80053; 81001; J1200; J2765; J7030; J1100

== ENCOUNTER 2018-08-05 08:40 | Emergency (ER) | payer SELFPAY | END 2018-08-05 09:00 | disposition left against medical advice (07) | LOC: ER 08:40 | DX: Z53.21 Procedure and treatment not carried out due to patient leaving prior to being seen by health care provider (principal) ==

== ENCOUNTER 2018-09-12 10:57 | Emergency (ER) | payer SELFPAY ==
[2018-09-12 11:05] VITALS: BP 147/86
== END 2018-09-12 13:47 | disposition left against medical advice (07) ==
LOC: ER 10:57
DX: Z53.21 Procedure and treatment not carried out due to patient leaving prior to being seen by health care provider (principal)

== ENCOUNTER 2018-09-23 00:17 | Inpatient (IN) | payer SELFPAY ==
[2018-09-23] MEDS ORDERED: IPRATROPIUM/ALBUTEROL 0.5-2.5 MG/3 ML AMPUL NEB ONE ×2 (00:37→00:47)
[2018-09-23] MEDS ORDERED: METHYLPREDNISOLONE INJ 125 MG/2 ML SDV IV ONE (00:38)
--- NOTE | 2018-09-23 00:41 | ER Document Report ---
ED General - General Chief Complaint: Shortness Of Breath Stated Complaint: ABDOMINAL PAIN Time Seen by Provider: 09/23/18 00:37 Notes: Patient is a pleasant 28-year-old female with a history of difficulty breathing. Patient says symptoms started earlier today. She says she felt fine yesterday. No fevers. No vomiting. Worsening difficulty breathing throughout the day. No history of asthma. She is a smoker. Patient presents with severe wheezing and difficulty breathing. TRAVEL OUTSIDE OF THE [place] IN LAST 30 DAYS: No - Related Data Allergies/Adverse Reactions: latex [Latex] Allergy (Severe, Verified 09/12/18 11:01) swelling Past Medical History - Social History Smoking Status: Current Every Day Smoker Frequency of alcohol use: None Drug Abuse: None Family History: Reviewed & Not Pertinent - Past Medical History Cardiac Medical History: Reports: Hx Heart Murmur Denies: Hx Hypertension Neurological Medical History: Denies: Hx Cerebrovascular Accident, Hx Seizures Renal/ Medical History: Denies: Hx Peritoneal Dialysis GI Medical History: Reports: Hx Gastroesophageal Reflux Disease, Hx Ulcer - ga stric hx of. Denies: Hx Hiatal Hernia Psychiatric Medical History: Infectious Medical History: Denies: Hx HIV Past Surgical History: Reports: Hx Section - x 3, Hx Tubal Ligation - Immunizations Immunizations up to date: Yes Hx Diphtheria, Pertussis, Tetanus Vaccination: Yes - 2009 Review of Systems - Review of Systems Notes: My Normal Review Basic REVIEW OF SYSTEMS: CONSTITUTIONAL : Denies fever, chills, or sweats. Denies recent illness. EENT: Denies eye, ear, throat, or mouth pain or symptoms. Denies nasal or sinus congestion. RESPIRATORY: Difficulty breathing GASTROINTESTINAL: Denies abdominal pain. Denies nausea, vomiting, or diarrhea. GENITOURINARY: Denies difficulty urinating, painful urination, burning, frequency, or blood in urine. FEMALE GENITOURINARY: Denies vaginal bleeding, abnormal or irregular periods. MUSCULOSKELETAL: Denies neck or back pain or joint pain or swelling. SKIN: Denies rash or skin lesions. NEUROLOGICAL: Denies altered mental status or loss of consciousness. Denies headache. Denies weakness or paralysis or loss of use of either side. Denies p roblems with gait or speech. Denies sensory or motor loss. ALL OTHER SYSTEMS REVIEWED AND NEGATIVE. Physical Exam - Vital signs Vitals: Temp Pulse Resp BP Pulse Ox 99.1 F 94 24 H 135/90 H 89 L 09/23/18 00:27 09/23/18 00:27 09/23/18 00:27 09/23/18 00:27 09/23/18 00:27 - Notes Notes: General Appearance: Well nourished, alert, cooperative, moderate acute distress, no obvious discomfort. Vitals: reviewed, See vital signs table. Head: no swelling or tenderness to the head Eyes: PERRL, EOMI, Conjuctiva clear Mouth: No decreasd moisture Throat: No tonsillar inflammation, No airway obstruction, No lymphadenopathy Lungs: She is wheezing. Tachypnea. Heart: Tachycardic rate, Regular rythm, No murmur, no rub Abdomen: Normal BS, soft, No rigidity, No abdominal tenderness, No guarding, no rebound, Extremities: strength 5/5 in all extremities, good pulses in all extremities, no swelling or tenderness in the extremities, no edema. Skin: warm, dry, appropriate color, no rash Neuro: speech clear, oriented x 3, normal affect, responds appropriately to questions. Course - Re-evaluation Re-evalutation: 09/23/18 01:18 Patient's wheezing is improving but her tachypnea continues and she continues to take. Her movement is improving. I will reassess again in 15 minutes to determine whether not further breathing treatments will be of help at this time. 09/23/18 01:40 On reevaluation patient still has some tachypnea. She still looks short of breath. I will place her on BiPAP to try to give her some rest to try to help with her breathing to see if this shores up her tachypnea. She still does not have a lot of wheezing since last breathing treatment; however, she is obviously some distress taking quick short breaths. Once her labs are come back we will have to consider possibility of CTA to rule out PE. I did ask the patient again about IV drug abuse. Patient absolutely denies any IV drug history and her significant other is at bedside and also denies ever having a history of IV drug use. 09/23/18 02:01 After BiPAP patient still tachypneic. Lung powell are clear. I have ordered a CTA to investigate for possible PE. I will give her a small nondissociative dose of ketamine to see if this does not help calm down her respiratory rate. 09/23/18 03:08 Despite the ketamine the patient still continues to have significant tachypnea continues to have increased work of breathing with retractions. Her lung powell have just slight wheezing but otherwise she has decent air movement. She did not do well with the BiPAP. This did not help her breathing. I still do not know the exact cause of why she is having such a hard time breathing at this moment. She does complain that she is get very fatigued. On exam she looks very fatigued and I do not think she can continue much longer without continue respiratory support. I talked her about placing her on a ventilator. I ex plained to her what it would entail to place her on a ventilator. She is agreeable to this. I feel that without doing this she would eventually developed respiratory arrest do to her significant fatigue. I also called her fianc, Neri, discussed this with him and he is agreeable to it. Patient says she has no one else family mccrary for me to call. 09/23/18 03:26 09/23/18 03:28 Patient is now intubated on the ventilator. Placed respiratory rate 20 being that she was very tachypneic before being placed on a ventilator. I will shortly attain an ABG to see what her blood gas is and adjust the ventilator accordingly. 09/23/18 04:52 Patient is doing well on the ventilator. Her post ventilator ABG is normal- appearing. She is now doing well in the sedation. She initially she would not stay sedated with propofol on. We did add Versed which has helped significantly. I am still not sure the exact cause of her respiratory distress. She did have a lot of wheezing on initial arrival. Her wheezing did respond well to the DuoNeb treatment. She is continued have some recurrent wheezing here and there however she had good air movement. Unfortunately she continued to have significant tachypnea with a respiratory rate being in the 40s and 50s. Because of this she continued to become more tired to the point where I felt that I need to intubate her as she was exhausted and I did not think she could breathe on her own for much longer. She is now resting comfortably in the vent. I did obtain a CTA which did not show evidence of PE. It does show some pneumonitis. She currently does not meet ARDS criteria. Her FiO2 to PO2 ratio is normal. Her flu swab is negative. I have spoken with the hospitalist, Dr. Obando, who agrees to come evaluate the patient. Dictation of this chart was performed using voice recognition software; therefore, there may be some unintended grammatical errors. - Vital Signs Vital signs: Temp Pulse Resp BP Pulse Ox 98.9 F 94 20 127/75 H 97 09/23/18 03:15 09/23/18 00:27 09/23/18 04:46 09/23/18 04:46 09/23/18 04:46 - Laboratory Result Diagrams: 09/23/18 00:39 09/23/18 00:39 Laboratory results interpreted by me: 09/23/18 09/23/18 09/23/18 00:39 00:39 00:39 WBC 15.0 H Plt Count 147 L Seg Neutrophils % 81.6 H Lymphocytes % 9.3 L Absolute Neutrophils 12.2 H ABG pO2 ABG O2 Saturation VBG pH 7.47 H VBG pCO2 27.8 L VBG HCO3 19.9 L Creatinine 0.43 L Glucose 113 H Salicylates 09/23/18 09/23/18 00:39 03:50 WBC Plt Count Seg Neutrophils % Lymphocytes % Absolute Neutrophils ABG pO2 119.6 H ABG O2 Saturation 98.3 H VBG pH VBG pCO2 VBG HCO3 Creatinine Glucose Salicylates < 1.0 L - EKG Interpretation by Me Additional EKG results interpreted by me: 09/23/18 01:16 EKG is reviewed and interpreted by me. EKG shows sinus tachycardia with a rate of [address] segment elevation or depression. No ischemic T wave inversions. CA interval slightly prolonged at 216 ms. QRS duration and QTC intervals are within normal range. Old EKG for comparison is from April 20, 2017. Procedures - Intubation Orotracheal Airway evaluation: Normal anatomy Mallampati Classification: Class 1 Intubation method: Orotracheal Blade type: Marcello Blade size: 3 Equipment used: Glidescope ETT size: 7.5 Breath Sounds after Intubation: Equal End tidal CO2 confirmed: Yes Post Intubation Xray: Yes - appropriate positioining Intubation Complications: No complications Critical Care Note - Critical Care Note Total time excluding time spent on procedures (mins): 60 Comments: Critical care time for the patient including time spent in procedures approximately 60 minutes due to frequent reevaluation due to respiratory distres s and continue respiratory decompensation. Also management of sedation and ventilator. Discharge - Discharge Clinical Impression: Wheezing Respiratory failure Qualifiers: Chronicity: acute Respiratory failure complication: hypoxia Qualified Code(s): J96.01 - Acute respiratory failure with hypoxia Condition: Stable Disposition: ADMITTED INPATIENT Admitting Provider: Hospitalist Unit Admitted: ICU
[2018-09-23] MEDS ORDERED: ONDANSETRON HCL INJ/PF 4 MG/2 ML SDV ONE (00:48)
[2018-09-23] MEDS: MAGNESIUM SULFATE/D5W 1 GM/100 ML RTUPB IV SCH ×2 (00:50→00:54)
[2018-09-23 00:51] LABS: ABSOLUTE EOSINOPHILS # (AUTO) 0.4 10^3/uL (0.0-0.6); ABSOLUTE LYMPHOCYTES (AUTO) 1.4 10^3/uL (0.5-4.7); ABSOLUTE MONOCYTES (AUTO) 0.9 10^3/uL (0.1-1.4); ABSOLUTE NEUT (AUTO) 12.2 10^3/uL (1.7-8.2); BASOPHILS % (AUTO) 0.2 % (0-2); EOSINOPHILS % (AUTO) 2.7 % (0-6); HEMATOCRIT 42.5 % (36.0-47.0); HEMOGLOBIN 14.5 g/dL (12.0-15.5); LYMPHOCYTES % (AUTO) 9.3 % (13-45); MEAN CORPUSCULAR HEMOGLOBIN 30.3 pg (27.0-33.4); MEAN CORPUSCULAR HGB CONC 34.2 g/dL (32.0-36.0); MEAN CORPUSCULAR VOLUME 88 fl (80-97); MONOCYTES % (AUTO) 6.2 % (3-13); PLATELET COUNT 147 10^3/uL (150-450); RED BLOOD COUNT 4.81 10^6/uL (3.72-5.28); RED CELL DISTRIBUTION WIDTH 13.8 % (11.5-14.0); SEGMENTED NEUTROPHILS % (AUTO) 81.6 % (42-78); TOTAL CELLS COUNTED % (AUTO) 100 %
[2018-09-23 00:54] LABS: VENOUS BLOOD BASE EXCESS -2.3 mmol/L; VENOUS BLOOD HCO3 19.9 mmol/L (20-32); VENOUS BLOOD PCO2 27.8 mmHg (35-63); VENOUS BLOOD PH 7.47 (7.30-7.42)
--- NOTE | 2018-09-23 01:07 | RADIOLOGY REPORT (SQ) ---
EXAM DESCRIPTION: X-ray single view chest. CLINICAL HISTORY: 28 years Female, dyspnea COMPARISON: 04/20/2017 TECHNIQUE: Single portable view of the chest performed on 09/23/2018 at 12:51 AM FINDINGS: The lungs are well expanded and are clear. There is no evidence of a pneumothorax. The cardiac silhouette is normal in size and configuration. The mediastinal contours are normal. No acute osseous abnormality is identified. No focal soft tissue abnormalities are seen. Lines and tubes: None. IMPRESSION: No evidence of acute intrathoracic disease. No significant change since the prior study.
[2018-09-23 01:14] LABS: ALANINE AMINOTRANSFERASE 20 U/L (9-52); ALBUMIN 4.8 g/dL (3.5-5.0); ALKALINE PHOSPHATASE 85 U/L (38-126); ANION GAP 10 (5-19); ASPARTATE AMINO TRANSFERASE 19 U/L (14-36); BILIRUBIN,DIRECT 0.2 mg/dL (0.0-0.4); BILIRUBIN,TOTAL 0.7 mg/dL (0.2-1.3); BLOOD UREA NITROGEN 9 mg/dL (7-20); CALCIUM 9.6 mg/dL (8.4-10.2); CARBON DIOXIDE 23 mmol/L (22-30); CHLORIDE 107 mmol/L (98-107); GLUCOSE 113 mg/dL (75-110); POTASSIUM 3.7 mmol/L (3.6-5.0); SODIUM 140.1 mmol/L (137-145); TOTAL PROTEIN 7.9 g/dL (6.3-8.2)
[2018-09-23] MEDS ORDERED: ALBUTEROL SULFATE 0.083% NEB 2.5 MG/3 ML AMPUL NEB ONE (01:37)
[2018-09-23 01:53] LABS: A TYPE INFLUENZA AG NEGATIVE (NEGATIVE); B INFLUENZA AG NEGATIVE (NEGATIVE)
[2018-09-23] MEDS ORDERED: KETAMINE HCL INJ 500 MG/10 ML VIAL IV ONE (02:01)
--- NOTE | 2018-09-23 03:06 | RADIOLOGY REPORT (SQ) ---
EXAM DESCRIPTION: CT CHEST ANGIOGRAPHY WITHOUT THEN WITH IV CONTRAST COMPLETED DATE/TME: 09/23/2018 01:41 CLINICAL HISTORY: 28 years, Female, dyspnea. HCG NEG COMPARISON: 04/20/2017 CTA TECHNIQUE: 509 Images stored on PACS. All CT scanners at this facility use dose modulation, iterative reconstruction, and/or weight based dosing when appropriate to reduce radiation dose to as low as reasonably achievable (ALARA). Axial CTA images were obtained with coronal and sagittal MIPS reconstructions [facility]: Dose Right [facility]: CareDose [facility]: Dose Right [facility]: Teradose 4D [facility]: [employer] LIMITATIONS: None. FINDINGS: The mediastinal vasculature enhances normally. No intraluminal filling defect to suggest pulmonary embolus. Negative for thoracic aortic aneurysm or dissection. No mediastinal or hilar adenopathy. The heart and pericardium are unremarkable. No pneumothorax. Visualized airways are patent. Patchy groundglass opacities in the perihilar regions bilaterally consistent with bilateral pneumonitis. IMPRESSION: Negative for pulmonary embolus. Perihilar groundglass opacities bilaterally consistent with pneumonitis TECHNICAL DOCUMENTATION: Quality ID # [id number]: Final reports with documentation of one or more dose reduction techniques (e.g., Automated exposure control, adjustment of the mA and/or kV according to patient size, use of iterative reconstruction technique) copyright 2011 [email or web address]- All Rights Reserved
[2018-09-23] MEDS ORDERED: PROPOFOL 1,000 MG/100 ML INFUS..BTL IV ONE ×2 (03:20→05:25)
[2018-09-23] MEDS: PROPOFOL 1,000 MG/100 ML INFUS..BTL IV PRN ×5 (03:30→22:52)
[2018-09-23] MEDS ORDERED: MIDAZOLAM 2 MG/2 ML INJ ONE (03:31)
[2018-09-23] MEDS ORDERED: MIDAZOLAM HCL 50 MG/100 ML RTUINJ ONE (03:31)
[2018-09-23] MEDS ORDERED: MIDAZOLAM HCL 50 MG/100 ML RTUINJ IV PRN ×3 (04:07→09:12)
[2018-09-23 04:15] LABS: ARTERIAL BLOOD BASE EXCESS -3.7 mmol/L; ARTERIAL BLOOD H2CO3 1.12 mmol/L (1.05-1.35); ARTERIAL BLOOD O2 SATURATION 98.3 % (94-98); ARTERIAL BLOOD PCO2 37.2 mmHg (35-45); ARTERIAL BLOOD PH 7.37 (7.35-7.45); ARTERIAL BLOOD PO2 119.6 mmHg (80-100); ARTERIAL BLOOD TOTAL CO2 22.2 mmol/L (21-25)
[2018-09-23 04:17] LABS: ARTERIAL BLOOD FIO2 50%
[2018-09-23] MEDS ORDERED: ETOMIDATE INJ/PF 20 MG/10 ML SDV IV ONE ×2 (04:18→10:03)
[2018-09-23] MEDS ORDERED: SUCCINYLCHOLINE CHLORIDE INJ 200 MG/10 ML VIAL IV ONE (04:19)
[2018-09-23] MEDS ORDERED: MIDAZOLAM 2 MG/2 ML INJ IV ONE (04:19)
[2018-09-23] MEDS ORDERED: PROPOFOL 1,000 MG/100 ML INFUS..BTL IV PRN ×2 (04:19→10:51)
--- NOTE | 2018-09-23 04:22 | RADIOLOGY REPORT (SQ) ---
EXAM DESCRIPTION: XR CHEST 1 VIEW COMPLETED DATE/TME: 09/23/2018 04:02 CLINICAL HISTORY: 28 years, Female, post intubation COMPARISON: Prior chest x-ray from today's date NUMBER OF VIEWS: 1 TECHNIQUE: Portable chest LIMITATIONS: None. FINDINGS: The endotracheal tube has been retracted and now lies approximately 3 cm above the ivet. Enteric tube with the distal tip in the left upper quadrant. No pneumothorax. Lungs are clear. Heart size is normal IMPRESSION: Endotracheal tube and enteric tubes in place. No pneumothorax copyright 2010 [employer]- All Rights Reserved
[2018-09-23 04:58] LABS: APPEARANCE,URINE CLEAR; BILIRUBIN,URINE NEGATIVE (NEGATIVE); COLOR,URINE STRAW; GLUCOSE, URINE NEGATIVE (NEGATIVE); KETONES,URINE 20 mg/dL (NEGATIVE); LEUKOCYTE ESTERASE,URINE NEGATIVE (NEGATIVE); NITRITE,URINE NEGATIVE (NEGATIVE); PROTEIN,URINE NEGATIVE (NEGATIVE); URINE SPECIFIC GRAVITY 1.059; UROBILINOGEN,URINE NEGATIVE mg/dL (<2.0)
[2018-09-23] MEDS ORDERED: ALBUTEROL SULFATE 0.083% NEB 2.5 MG/3 ML AMPUL NEB PRN (05:12)
[2018-09-23] MEDS ORDERED: PHARMACY COMMUNICATION ORDER MC NR (05:15)
[2018-09-23 05:21] LABS: URINE AMPHETAMINES SCREEN NEGATIVE; URINE BARBITURATES SCREEN NEGATIVE; URINE BENZODIAZEPINES SCREEN UNCONFIRMED POSITIVE; URINE COCAINE SCREEN NEGATIVE; URINE MARIJUANA (THC) SCREEN UNCONFIRMED POSITIVE; URINE METHADONE SCREEN NEGATIVE; URINE PHENCYCLIDINE SCREEN NEGATIVE
--- NOTE | 2018-09-23 06:33 | PDOC H&P ---
History of Present Illness Admission Date/PCP: 09/23/18 05:05 Patient complains of: Dyspnea History of Present Illness: KAVITA ALCALA is a 28 year old female who presented to the emergency room with acute dyspnea. Patient related that she developed progressive dyspnea during the day prior to her presentation and her symptoms increased to the point where she felt that her dyspnea was severe and presented to the emergency room. Her symptoms were accompanied by a nonproductive cough and progressively worsening wheezing. She denied prior similar episodes and had not identified any aggravating or ameliorating factors for her dyspnea and wheezing. In the emergency room she was found to be tachypneic and hypoxic with wheezing. She was treated with intravenous steroids as well as nebulizer treatments without improvement. She was subsequently placed on BiPAP also without improvement. She was given a dissociative dose of ketamine again without any improvement in her respiratory status. Her condition progressively declined to the point where she required intubation due to acute respiratory failure with hypoxia and physical exhaustion due to the progressively increased work of breathing. She was subsequently admitted in the ICU for further evaluation and treatment. Past Medical History Cardiac Medical History: Reports: Heart Murmur Denies: Coronary Artery Disease, Hypertension Pulmonary Medical History: Denies: Asthma, Chronic Obstructive Pulmonary Disease (COPD) EENT Medical History: Reports: None Neurological Medical History: Denies: Multiple Sclerosis, Seizures Endocrine Medical History: Denies: Diabetes Mellitus Type 1, Diabetes Mellitus Type 2 Renal/ Medical History: Denies: Chronic Kidney Disease, Nephrolithiasis Malignancy Medical History: Reports: None GI Medical History: Reports: Gastroesophageal Reflux Disease Denies: Hiatal Hernia Musculoskeltal Medical History: Denies: Arthritis Skin Medical History: Denies: Eczema, Psoriasis Psychiatric Medical History: Reports: Tobacco Dependency Denies: Alcohol Dependency, Substance Abuse Traumatic Medical History: Reports: None Hematology: Denies: Anemia, Bleeding Tendencies Infectious Medical History: Reports: None Past Surgical History Past Surgical History: Reports: Section - x 3, Tubal Ligation Social History Information Source: Patient - History given prior to her intubation Lives with: Family, Spouse/Significant other - Significant other Neri Smoking Status: Current Every Day Smoker Frequency of Alcohol Use: None Hx Recreational Drug Use: No Drugs: None Hx Prescription Drug Abuse: No - Advance Directive Resuscitation Status: Full Code Surrogate healthcare decision maker:: Neri her significant other Family History Family History: CAD, CVA, DM, Hypertension, Malignancy Parental Family History Reviewed: Yes Children Family History Reviewed: No Sibling(s) Family History Reviewed.: Yes Medication/Allergy Home Medications: Cephalexin Monohydrate [Keflex 500 mg Capsule] 500 mg PO BID 7 Days #14 capsule 12/03/17 Dicyclomine HCl [Bentyl 20 mg Tablet] 20 mg PO BID #20 tablet 12/03/17 Famotidine [Pepcid 20 mg Tablet] 20 mg PO BID PRN #20 tablet 12/08/17 Metoclopramide HCl [Reglan] 5 mg PO ASDIR PRN #30 tablet 12/08/17 Allergies/Adverse Reactions: latex [Latex] Allergy (Severe, Verified 09/12/18 11:01) swelling Review of Systems ROS unobtainable: Due to endotracheal tube Physical Exam Vital Signs: Temp Pulse Resp BP Pulse Ox 98.9 F 94 20 138/81 H 96 09/23/18 03:15 09/23/18 00:27 09/23/18 05:01 09/23/18 05:01 09/23/18 05:01 Intake & Output 09/21/18 09/22/18 09/23/18 23:59 23:59 23:59 Intake Total 107 Balance 107 Weight 60.4 kg General appearance: PRESENT: no acute distress, well-developed, other - Intubated and on ventilator at the time of my evaluation Head exam: PRESENT: atraumatic, normocephalic Eye exam: PRESENT: conjunctiva pink. ABSENT: scleral icterus Ear exam: PRESENT: normal external ear exam. ABSENT: bleeding, drainage Mouth exam: PRESENT: dry mucosa, neck supple Neck exam: ABSENT: thyromegaly, tracheal deviation Respiratory exam: PRESENT: symmetrical, other - On ventilator at the time my evaluation Cardiovascular exam: PRESENT: RRR, tachycardia. ABSENT: clicks, gallop, rubs Pulses: PRESENT: normal radial pulses, normal dorsalis pedis pul Vascular exam: PRESENT: normal capillary refill. ABSENT: pallor GI/Abdominal exam: PRESENT: normal bowel sounds, soft Rectal exam: PRESENT: deferred Extremities exam: ABSENT: joint swelling, pedal edema Musculoskeletal exam: ABSENT: deformity, dislocation Neurological exam: PRESENT: other - Sedated and ventilated at the time my evaluation Psychiatric exam: PRESENT: other - Sedated and ventilated at the time of my evaluation Skin exam: PRESENT: dry, intact, warm. ABSENT: jaundice, rash, urticaria Results Laboratory Results: 09/23/18 00:39 09/23/18 00:39 09/23/18 09/23/18 09/23/18 00:39 00:39 00:39 WBC 15.0 H RBC 4.81 Hgb 14.5 Hct 42.5 MCV 88 MCH 30.3 MCHC 34.2 RDW 13.8 Plt Count 147 L Seg Neutrophils % 81.6 H Lymphocytes % 9.3 L Monocytes % 6.2 Eosinophils % 2.7 Basophils % 0.2 Absolute Neutrophils 12.2 H Absolute Lymphocytes 1.4 Absolute Monocytes 0.9 Absolute Eosinophils 0.4 Absolute Basophils 0.0 Carbonic Acid HCO3/H2CO3 Ratio ABG pH ABG pCO2 ABG pO2 ABG HCO3 ABG O2 Saturation ABG Base Excess VBG pH 7.47 H VBG pCO2 27.8 L VBG HCO3 19.9 L VBG Base Excess -2.3 FiO2 Sodium 140.1 Potassium 3.7 Chloride 107 Carbon Dioxide 23 Anion Gap 10 BUN 9 Creatinine 0.43 L Est GFR ( Amer) > 60 Est GFR (Non-Af Amer) > 60 Glucose 113 H Calcium 9.6 Total Bilirubin 0.7 AST 19 ALT 20 Alkaline Phosphatase 85 Total Protein 7.9 Albumin 4.8 Serum HCG, Qual Urine Color Urine Appearance Urine pH Ur Specific [place] Urine Protein Urine Glucose (UA) Urine Ketones Urine Blood Urine Nitrite Ur Leukocyte Esterase Urine WBC (Auto) Urine RBC (Auto) 09/23/18 09/23/18 09/23/18 00:39 03:45 03:50 WBC RBC Hgb Hct MCV MCH MCHC RDW Plt Count Seg Neutrophils % Lymphocytes % Monocytes % Eosinophils % Basophils % Absolute Neutrophils Absolute Lymphocytes Absolute Monocytes Absolute Eosinophils Absolute Basophils Carbonic Acid 1.12 HCO3/H2CO3 Ratio 18:1 ABG pH 7.37 ABG pCO2 37.2 ABG pO2 119.6 H ABG HCO3 21.0 ABG O2 Saturation 98.3 H ABG Base Excess -3.7 VBG pH VBG pCO2 VBG HCO3 VBG Base Excess FiO2 50% Sodium Potassium Chloride Carbon Dioxide Anion Gap BUN Creatinine Est GFR ( Amer) Est GFR (Non-Af Amer) Glucose Calcium Total Bilirubin AST ALT Alkaline Phosphatase Total Protein Albumin Serum HCG, Qual NEGATIVE Urine Color STRAW Urine Appearance CLEAR Urine pH 6.0 Ur Specific [place] 1.059 Urine Protein NEGATIVE Urine Glucose (UA) NEGATIVE Urine Ketones 20 H Urine Blood SMALL H Urine Nitrite NEGATIVE Ur Leukocyte Esterase NEGATIVE Urine WBC (Auto) 1 Urine RBC (Auto) 1 Impressions: Chest/Abdomen CTA 09/23/18 01:41 IMPRESSION: Negative for pulmonary embolus. Perihilar groundglass opacities bilaterally consistent with pneumonitis TECHNICAL DOCUMENTATION: Quality ID # [id number]: Final reports with documentation of one or more dose reduction techniques (e.g., Automated exposure control, adjustment of the mA and/or kV according to patient size, use of iterative reconstruction technique) copyright 2010 [employer]- All Rights Reserved Chest X-Ray 09/23/18 04:02 IMPRESSION: Endotracheal tube and enteric tubes in place. No pneumothorax copyright 2010 [employer]- All Rights Reserved Assessment & Plan - Diagnosis (1) Acute respiratory failure with hypoxia Is this a current diagnosis for this admission?: Yes Plan: Patient is intubated and ventilated at the present time Dr. Carlos will be c onsulted for assistance in ventilatory management and for a pulmonology consult help to determine the cause of the patient's respiratory compromise. (2) Dyspnea and respiratory abnormalities Is this a current diagnosis for this admission?: Yes Plan: Patient will be treated with a pulmonary toilet utilizing Pulmicort, Xopenex, Atrovent and albuterol. She will receive Solu-Medrol IV. She will also receive usual supportive and symptomatic cares during her hospital course once she is off the ventilator. (3) Tobacco dependence Is this a current diagnosis for this admission?: Yes Plan: Patient will be counseled on tobacco use cessation when she is able to be off the ventilator and understand the discussion and participating fully. (4) Gastro-esophageal reflux disease with esophagitis Is this a current diagnosis for this admission?: Yes Plan: Patient will be maintained on Prilosec 40 mg IV every 12 hours to protect her GI tract. - Time Time Spent: 30 to 50 Minutes Critical Time spent with patient: Less than 15 minutes Medications reviewed and adjusted accordingly: Yes Anticipated discharge: Home - Inpatient Certification Based on my medical assessment, after consideration of the patient's comorbidities, presenting symptoms, or acuity I expect that the services needed warrant INPATIENT care.: Yes I certify that my determination is in accordance with my understanding of Medicare's requirements for reasonable and necessary INPATIENT services [42 CFR 412.3e].: Yes Medical Necessity: Need Close Monitoring Due to Risk of Patient Decompensation, Need For IV Fluids, Need For Continuous Telemetry Monitoring, Need for Nebulizer Therapy and Monitoring of Response, Risk of Complication if Not Cared For in Hospital, Risk of Diagnosis Which Will Require Inpatient Eval/Care/Monitoring
[2018-09-23] MEDS: METHYLPREDNISOLONE INJ 40 MG/1 ML SDV IV SCH ×3 (06:36→17:51)
[2018-09-23 07:02] LABS: CREATINE KINASE MB < 0.22 ng/mL (<4.55); TROPONIN I < 0.012 ng/mL
--- NOTE | 2018-09-23 07:32 | EKG REPORT ---
SEVERITY:- ABNORMAL ECG - SINUS TACHYCARDIA FIRST DEGREE AV BLOCK PROBABLE LEFT ATRIAL ABNORMALITY BORDERLINE T ABNORMALITIES, ANT-LAT LEADS : Confirmed by: Marybel Loomis MD 23-Sep-2018 07:32:16
[2018-09-23] MEDS: ACETAMINOPHEN 650 MG SUPP.RECT PR PRN (07:47)
[2018-09-23 08:03] LABS: CREATINE KINASE MB < 0.22 ng/mL (<4.55); TROPONIN I < 0.012 ng/mL
[2018-09-23] MEDS: BUDESONIDE NEB 0.5 MG/2 ML AMPUL NEB SCH ×2 (08:47→20:25)
[2018-09-23] MEDS: LEVALBUTEROL HCL NEB 1.25 MG/3 ML AMPUL NEB SCH ×2 (08:47→15:58)
[2018-09-23] MEDS: IPRATROPIUM BROMIDE 0.02% NEB 0.5 MG/2.5 ML AMPUL NEB SCH ×2 (08:47→15:58)
[2018-09-23] MEDS: MIDAZOLAM HCL 50 MG/100 ML RTUINJ IV PRN ×2 (09:31→21:58)
[2018-09-23] MEDS: FONDAPARINUX SODIUM INJ 2.5 MG/0.5 ML DISP.SYRIN SUBCUT SCH (09:35)
[2018-09-23] MEDS ORDERED: SUCCINYLCHOLINE CHLORIDE INJ 200 MG/10 ML VIAL ONE (10:03)
[2018-09-23] MEDS: PANTOPRAZOLE SODIUM 40 MG VIAL IV SCH ×2 (10:51→22:02)
--- NOTE | 2018-09-23 11:55 | RADIOLOGY REPORT (SQ) ---
EXAM DESCRIPTION: CHEST SINGLE VIEW COMPLETED DATE/TIME: 09/23/2018 11:24 am REASON FOR STUDY: Follow-up hypoxia COMPARISON: CT chest 09/23/2018 Chest films 09/23/2018, 04/20/2017 EXAM PARAMETERS: NUMBER OF VIEWS: One view. TECHNIQUE: Single frontal radiographic view of the chest acquired. RADIATION DOSE: NA LIMITATIONS: None. FINDINGS: LUNGS AND PLEURA: Minimal left retrocardiac atelectasis. Lungs otherwise well inflated an d clear. No pleural effusion. No pneumothorax. MEDIASTINUM AND HILAR STRUCTURES: No masses. Contour normal. HEART AND VASCULAR STRUCTURES: Heart normal in size. Normal vasculature. BONES: No acute findings. HARDWARE: Endotracheal tube tip midtrachea. Nasogastric tube tip and side port below the hemidiaphra gms OTHER: No other significant finding. IMPRESSION: Endotracheal tube, nasogastric tube in good positioning. Minimal left retrocardiac atelectasis. TECHNICAL DOCUMENTATION: JOB ID: [id number] [employer]- All Rights Reserved Reading location - IP/workstation name: [email or web address]
[2018-09-23] MEDS ORDERED: TUBERCULIN,PURIF.PROT.DERIV. 5 TU/0.1 ML TEST 1 ML VIAL ID ONE (12:00)
[2018-09-23] MEDS: POTASSI CL 20 MEQ/D5-1/2NS 1L 1,000 ML IV PRN ×2 (12:45→22:53)
[2018-09-23 13:31] LABS: CREATINE KINASE MB 0.82 ng/mL (<4.55); TROPONIN I < 0.012 ng/mL
[2018-09-23] MEDS: PIPERACILLIN SODIUM/TAZOBACTAM 4.5 GM in NORMAL SALINE 100 ML IV SCH ×2 (15:05→17:50)
--- NOTE | 2018-09-23 22:08 | PROGRESS NOTE E ---
Progress Note NAME: KAVITA ALCALA : 1990 AGE: 28Y DATE: 09/23/2018 ROOM: 611 SUBJECTIVE: The patient is on vent. The patient remains intubated and profoundly sedated. The patient apparently has had numerous sick contacts in the last couple of days according to her significant other, as their children have been sick. The patient is oxygenating well on 40% FiO2. Blood pressure has been in a good range. Has not spiked any fevers. The patient is unable to voice any concerns at this time. I was able to discuss the patient's care with her significant other. He does Endorse significant alcohol consumption. REVIEW OF SYSTEMS: Unobtainable. MEDICATIONS: Reviewed. OBJECTIVE: GENERAL: The patient is a 28-year-old female who is currently intubated, sedated, very difficult to arouse. She does not appear to be distressed. VITAL SIGNS: Temperature is 98.1, pulse 96, respirations 20, blood pressure is 138/87, oxygen saturation is 93% on 40% FiO2. SKIN: Warm and dry. No rash. She is not diaphoretic. HEENT: Pupils are reactive. Conjunctivae pink. ET tube is in place. CARDIOVASCULAR: Heart is regular. No rub. CHEST: Diminished, symmetrical, unlabored. ABDOMEN: Soft, nontender. EXTREMITIES: No clubbing, cyanosis, or edema. PSYCHIATRIC: Unable to assess. DIAGNOSTICS: Lab values are as follows - hematology obtained on 09/23/2018; WBC is 15.0, hemoglobin is 14.5, hematocrit is 42.5, platelet count is 147,000. Chemistry obtained on 09/23/2018; CK-MB is 0.82, troponin is 0.012. Blood cultures obtained on 09/23/2018 are pending. Urine culture obtained on 09/23/2018 is pending. IMPRESSION AND PLAN: 1. BILATERAL PNEUMONITIS, POSSIBLY VIRAL ETIOLOGY. Regardless will start the patient on broad spectrum antibiotic coverage given her illness and will follow. 2. ACUTE HYPOXEMIC RESPIRATORY FAILURE. The patient is mechanically intubated. Will repeat chest x-ray in the a.m. Do appreciate pulmonology support with this. The patient's presentation is interesting given that she does not have a history of asthma and so forth. Will monitor closely. CODE STATUS: The patient is a full code. DISPOSITION: Depending on the patient's symptomatology and diagnostic findings will reevaluate in the a.m. TIME SPENT: On this critical care visit, including assessment and plan, physical examination, and attend to patient education family meeting is 35 minutes. DICTATING PHYSICIAN: FIONA DE LEON NP [id number] PHY#: [id number] ID: [id number] JOB#: [id number] ACCT: [id number] cc: > MTDD
[2018-09-24] MEDS: METHYLPREDNISOLONE INJ 40 MG/1 ML SDV IV SCH ×5 (00:37→23:31)
[2018-09-24] MEDS: PIPERACILLIN SODIUM/TAZOBACTAM 4.5 GM in NORMAL SALINE 100 ML IV SCH ×5 (00:38→23:55)
[2018-09-24] MEDS: IPRATROPIUM BROMIDE 0.02% NEB 0.5 MG/2.5 ML AMPUL NEB SCH ×3 (01:54→16:05)
[2018-09-24] MEDS: LEVALBUTEROL HCL NEB 1.25 MG/3 ML AMPUL NEB SCH ×3 (01:54→16:05)
[2018-09-24 04:06] LABS: HEMATOCRIT 35.7 % (36.0-47.0); MEAN CORPUSCULAR HEMOGLOBIN 29.8 pg (27.0-33.4); MEAN CORPUSCULAR HGB CONC 33.3 g/dL (32.0-36.0); MEAN CORPUSCULAR VOLUME 90 fl (80-97); PLATELET COUNT 101 10^3/uL (150-450); RED BLOOD COUNT 3.99 10^6/uL (3.72-5.28); RED CELL DISTRIBUTION WIDTH 13.9 % (11.5-14.0); WHITE BLOOD COUNT 12.8 10^3/uL (4.0-10.5)
[2018-09-24 04:16] LABS: ALANINE AMINOTRANSFERASE 16 U/L (9-52); ALBUMIN 3.5 g/dL (3.5-5.0); ALKALINE PHOSPHATASE 62 U/L (38-126); ANION GAP 9 (5-19); ASPARTATE AMINO TRANSFERASE 8 U/L (14-36); BILIRUBIN,DIRECT 0.1 mg/dL (0.0-0.4); BILIRUBIN,TOTAL 0.4 mg/dL (0.2-1.3); BLOOD UREA NITROGEN 7 mg/dL (7-20); CALCIUM 8.7 mg/dL (8.4-10.2); CARBON DIOXIDE 21 mmol/L (22-30); CHLORIDE 111 mmol/L (98-107); CHOLESTEROL 106.34 mg/dL (0-200); GLUCOSE 210 mg/dL (75-110); POTASSIUM 3.1 mmol/L (3.6-5.0); SODIUM 140.7 mmol/L (137-145); TRIGLYCERIDES 71 mg/dL (<150)
[2018-09-24 04:27] LABS: DIRECT LDL 50 mg/dL (<100)
[2018-09-24 04:30] LABS: ABSOLUTE LYMPHOCYTES# (MANUAL) 0.5 10^3/uL (0.5-4.7); ABSOLUTE MONOCYTES # (MANUAL) 0.3 10^3/uL (0.1-1.4); BASOPHILS % (MANUAL) 0 % (0-2); EOSINOPHILS % (MANUAL) 0 % (0-6); LYMPHOCYTES % (MANUAL) 4 % (13-45); MONOCYTES % (MANUAL) 2 % (3-13); PLATELET COMMENT ADEQUATE; RBC MORPHOLOGY COMMENT NORMO-CYTIC/CHROMIC; SEGMENTED NEUTROPHILS % (MAN) 94 % (42-78); TOTAL CELLS COUNTED 100
[2018-09-24 04:31] LABS: HEMOGLOBIN 11.9 g/dL (12.0-15.5)
[2018-09-24 04:32] LABS: FREE T3 3.27 pg/mL (2.77-5.27); FREE T4 (FREE THYROXINE) 1.46 ng/dL (0.78-2.19)
[2018-09-24 04:46] LABS: THYROID STIMULATING HORMONE 0.13 uIU/mL (0.47-4.68)
[2018-09-24 05:10] LABS: ARTERIAL BLOOD BASE EXCESS -2.1 mmol/L; ARTERIAL BLOOD H2CO3 1.01 mmol/L (1.05-1.35); ARTERIAL BLOOD HCO3 21.6 mmol/L (20-24); ARTERIAL BLOOD O2 SATURATION 94.5 % (94-98); ARTERIAL BLOOD PCO2 33.7 mmHg (35-45); ARTERIAL BLOOD PH 7.43 (7.35-7.45); ARTERIAL BLOOD PO2 69.6 mmHg (80-100); ARTERIAL BLOOD TOTAL CO2 22.7 mmol/L (21-25)
[2018-09-24 05:11] LABS: ARTERIAL BLOOD FIO2 45%
[2018-09-24] MEDS: MIDAZOLAM HCL 50 MG/100 ML RTUINJ IV PRN ×3 (06:59→21:37)
[2018-09-24] MEDS: POTASSI CL 20 MEQ/D5-1/2NS 1L 1,000 ML IV PRN ×2 (07:00→15:43)
[2018-09-24] MEDS: BUDESONIDE NEB 0.5 MG/2 ML AMPUL NEB SCH ×2 (08:33→21:05)
[2018-09-24] MEDS: PROPOFOL 1,000 MG/100 ML INFUS..BTL IV PRN ×4 (08:36→23:31)
[2018-09-24] MEDS: FONDAPARINUX SODIUM INJ 2.5 MG/0.5 ML DISP.SYRIN SUBCUT SCH (09:48)
[2018-09-24] MEDS: PANTOPRAZOLE SODIUM 40 MG VIAL IV SCH ×2 (09:49→21:38)
[2018-09-24] MEDS: POTASSI CL 20 MEQ/50 ML RIDER 20 MEQ/50 ML RTUPB IV SCH (09:50)
[2018-09-24] MEDS ORDERED: ALBUTEROL SULFATE 0.083% NEB 2.5 MG/3 ML AMPUL NEB PRN (09:52)
--- NOTE | 2018-09-24 10:30 | RADIOLOGY REPORT (SQ) ---
EXAM DESCRIPTION: CHEST SINGLE VIEW COMPLETED DATE/TIME: 09/24/2018 7:31 am REASON FOR STUDY: On vent COMPARISON: 09/23/2018 NUMBER OF VIEWS: One view. TECHNIQUE: Single frontal radiographic image of the chest acquired. LIMITATIONS: None. FINDINGS: LUNGS AND PLEURA: No infiltrate. No pneumothorax. MEDIASTINUM AND HEART: Stable heart size and mediastinal structures. SUPPORT DEVICES: Appropriate location without change. BONY STRUCTURES: No acute findings. HARDWARE: None. OTHER: No other significant finding. IMPRESSION: STABLE APPEARANCE OF THE CHEST. SUPPORT DEVICES UNCHANGED. Reading location - IP/workstation name: [email or web address]
[2018-09-24] MEDS ORDERED: MAGNESIUM SULFATE/D5W 1 GM/100 ML RTUPB IV ONE (11:00)
--- NOTE | 2018-09-24 12:18 | PROGRESS NOTE E ---
Progress Note NAME: KAVITA ALCALA : 1990 AGE: 28Y DATE: 09/24/2018 ROOM: 611 SUBJECTIVE: The patient is lying in bed. The patient did have some episodes of agitation overnight. Apparently, the patient's significant other has expressed that she does drink a substantial amount of alcohol. The patient has been afebrile. Her blood pressure has been in good range. The patient has been somewhat tachycardic through the night with average rate around 110; when she gets agitated, she does go up to 130, but settles back down. Urine output has been stable, and the patient has not been producing a lot of secretions and is unable to express any concerns at this time. REVIEW OF SYSTEMS: Unobtainable. MEDICATIONS: Reviewed. OBJECTIVE: GENERAL: The patient is a 28-year-old female who is currently intubated and sedated. Does not appear to be distressed. VITAL SIGNS: Temperature 97.9, pulse 103, respirations 22, blood pressure 124/75, oxygen saturation 93% on 40% FiO2. The patient was on 50% FiO2; however, when I was in the room I was able to adjust down to 45% and then 40%. The patient appears to tolerate this okay. SKIN: Pale, dry. No rash. She is not diaphoretic. HEENT: Pupils are reactive. Conjunctivae pink. No evidence of JVP. ET tube in place with Moon. CVS: Heart is tachycardic, regular, no rub. CHEST: Symmetrical, unlabored. Relatively clear. ABDOMEN: Soft, nontender, nondistended. EXTREMITIES: No clubbing, cyanosis, or edema. PSYCHIATRIC: Unable to assess. DIAGNOSTICS/LAB VALUES: Hematology obtained on 09/24/2018: WBC 12.8, hemoglobin 11.9, hematocrit 35.7, platelet count 101,000. Chemistry obtained on 09/24/2018: Sodium 140, potassium 4.1, chloride 111, carbon dioxide 21, BUN 7, creatinine 0.38, glucose 210, calcium 8.7, magnesium 2.2, bilirubin 0.4. AST 8, ALT 16, alkaline phosphatase 62. Total protein 6.0, albumin 3.5. ASSESSMENT AND PLAN: 1. BILATERAL PNEUMONITIS. Possibly of viral etiology. The patient remains on broad-spectrum antibiotic coverage given the severity of her illness. Chest x-ray this morning looks relatively clear. Will follow. 2. ACUTE HYPOXEMIC RESPIRATORY FAILURE. The patient remains mechanically intubated. Repeat chest x-ray this morning is clear. I do appreciate Pulmonology's support with this. Will continue to monitor closely. 3. ALCOHOL USE. Suspect possible abuse versus dependency. Will supplement B vitamins. The patient does remain on Versed as well. DISPOSITION: The patient is full code. Depending on the patient's symptomatology and diagnostic findings, will reevaluate in the a.m. or as needed. Time spent on this critical care visit including assessment, plan, physical examination, and attempt at patient education is 35 minutes. DICTATING PHYSICIAN: FIONA DE LEON NP [id number] PHY#: [id number] ID: [id number] JOB#: [id number] ACCT: [id number] cc: > MTDD
[2018-09-24] MEDS ORDERED: POTASSI CL 20 MEQ/50 ML RIDER 20 MEQ/50 ML RTUPB IV ONE (15:32)
[2018-09-25] MEDS: LEVALBUTEROL HCL NEB 1.25 MG/3 ML AMPUL NEB SCH ×4 (00:53→23:48)
[2018-09-25] MEDS: IPRATROPIUM BROMIDE 0.02% NEB 0.5 MG/2.5 ML AMPUL NEB SCH ×4 (00:53→23:48)
[2018-09-25] MEDS: POTASSI CL 20 MEQ/D5-1/2NS 1L 1,000 ML IV PRN ×3 (01:32→20:43)
[2018-09-25] MEDS: POTASSI CL 20 MEQ/50 ML RIDER 20 MEQ/50 ML RTUPB IV SCH (01:44)
[2018-09-25] MEDS: MIDAZOLAM HCL 50 MG/100 ML RTUINJ IV PRN ×4 (03:33→20:40)
[2018-09-25 04:35] LABS: HEMATOCRIT 33.8 % (36.0-47.0); HEMOGLOBIN 11.6 g/dL (12.0-15.5); MEAN CORPUSCULAR HEMOGLOBIN 30.5 pg (27.0-33.4); MEAN CORPUSCULAR HGB CONC 34.3 g/dL (32.0-36.0); MEAN CORPUSCULAR VOLUME 89 fl (80-97); RED CELL DISTRIBUTION WIDTH 14.3 % (11.5-14.0); WHITE BLOOD COUNT 10.9 10^3/uL (4.0-10.5)
[2018-09-25] MEDS: PROPOFOL 1,000 MG/100 ML INFUS..BTL IV PRN ×5 (04:51→20:41)
[2018-09-25 05:01] LABS: ALANINE AMINOTRANSFERASE 12 U/L (9-52); ALBUMIN 3.1 g/dL (3.5-5.0); ALKALINE PHOSPHATASE 52 U/L (38-126); ANION GAP 9 (5-19); ASPARTATE AMINO TRANSFERASE 10 U/L (14-36); BILIRUBIN,DIRECT 0.3 mg/dL (0.0-0.4); BILIRUBIN,TOTAL 0.4 mg/dL (0.2-1.3); BLOOD UREA NITROGEN 8 mg/dL (7-20); CALCIUM 8.7 mg/dL (8.4-10.2); CARBON DIOXIDE 20 mmol/L (22-30); CHLORIDE 111 mmol/L (98-107); GLUCOSE 151 mg/dL (75-110); SODIUM 140.1 mmol/L (137-145); TOTAL PROTEIN 5.5 g/dL (6.3-8.2)
[2018-09-25] MEDS: PIPERACILLIN SODIUM/TAZOBACTAM 4.5 GM in NORMAL SALINE 100 ML IV SCH ×4 (05:09→23:36)
[2018-09-25 05:14] LABS: PLATELET COUNT 99 10^3/uL (150-450)
[2018-09-25 05:16] LABS: ABSOLUTE LYMPHOCYTES# (MANUAL) 0.4 10^3/uL (0.5-4.7); ABSOLUTE MONOCYTES # (MANUAL) 0.2 10^3/uL (0.1-1.4); ABSOLUTE NEUTROPHILS# (MANUAL) 10.2 10^3/uL (1.7-8.2); BASOPHILS % (MANUAL) 0 % (0-2); EOSINOPHILS % (MANUAL) 0 % (0-6); LYMPHOCYTES % (MANUAL) 4 % (13-45); MONOCYTES % (MANUAL) 2 % (3-13); SEGMENTED NEUTROPHILS % (MAN) 94 % (42-78); TOTAL CELLS COUNTED 100
[2018-09-25 05:29] LABS: ANISOCYTOSIS SLIGHT; OVALOCYTES SLIGHT; POIKILOCYTOSIS SLIGHT; TOXIC GRANULATION 1+
[2018-09-25 05:30] LABS: PLATELET COMMENT DECREASED; TEAR DROP CELLS SLIGHT
[2018-09-25 05:44] LABS: ARTERIAL BLOOD BASE EXCESS -1.1 mmol/L; ARTERIAL BLOOD H2CO3 1.08 mmol/L (1.05-1.35); ARTERIAL BLOOD HCO3 22.9 mmol/L (20-24); ARTERIAL BLOOD O2 SATURATION 94.5 % (94-98); ARTERIAL BLOOD PCO2 35.8 mmHg (35-45); ARTERIAL BLOOD PH 7.42 (7.35-7.45); ARTERIAL BLOOD PO2 69.8 mmHg (80-100)
[2018-09-25 05:45] LABS: ARTERIAL BLOOD FIO2 40%
[2018-09-25] MEDS: BUDESONIDE NEB 0.5 MG/2 ML AMPUL NEB SCH ×2 (08:28→21:03)
[2018-09-25] MEDS: FONDAPARINUX SODIUM INJ 2.5 MG/0.5 ML DISP.SYRIN SUBCUT SCH (08:34)
--- NOTE | 2018-09-25 09:07 | RADIOLOGY REPORT (SQ) ---
EXAM DESCRIPTION: CHEST SINGLE VIEW COMPLETED DATE/TIME: 09/25/2018 6:51 am REASON FOR STUDY: On vent COMPARISON: 09/24/2018 NUMBER OF VIEWS: One view. TECHNIQUE: Single frontal radiographic image of the chest acquired. LIMITATIONS: None. FINDINGS: LUNGS AND PLEURA: Subsegmental airspace disease left lower lobe lung. No pneumothorax. MEDIASTINUM AND HEART: Stable heart size and mediastinal structures. SUPPORT DEVICES: Appropriate location without change. BONY STRUCTURES: No acute findings. HARDWARE: None. OTHER: No other significant finding. IMPRESSION: Left basilar atelectasis or pneumonia. No pneumothorax. Reading location - IP/workstation name: [email or web address]
[2018-09-25] MEDS ORDERED: MAGNESIUM SULFATE/D5W 1 GM/100 ML RTUPB IV ONE (09:13)
[2018-09-25] MEDS ORDERED: LABETALOL HCL INJ 20 MG/4 ML DISP.SYRIN IV PRN (09:15)
[2018-09-25] MEDS ORDERED: DIAZEPAM INJ 10 MG/2 ML DISP.SYRIN IV ONE (09:20)
[2018-09-25] MEDS ORDERED: METOPROLOL TARTRATE PF/INJ 5 MG/5 ML SDV IV PRN (09:29)
[2018-09-25] MEDS ORDERED: DIAZEPAM INJ 10 MG/2 ML DISP.SYRIN IV PRN (09:56)
[2018-09-25] MEDS: FOLIC ACID 1 MG TABLET NG SCH (10:33)
[2018-09-25] MEDS: DOXYCYCLINE HYCLATE 100 MG in DEXTROSE 5%-WATER 250 ML IV SCH ×2 (10:34→21:38)
[2018-09-25] MEDS: LEVETIRACETAM 1000 MG/NACL-ISO 1,000 MG/100 ML RTUPB IV SCH ×2 (10:34→21:36)
[2018-09-25] MEDS: THIAMINE HCL 100 MG TABLET NG SCH (10:37)
[2018-09-25] MEDS: PANTOPRAZOLE SODIUM 40 MG VIAL IV SCH ×2 (10:38→21:39)
--- NOTE | 2018-09-25 11:55 | RADIOLOGY REPORT (SQ) ---
EXAM DESCRIPTION: CT HEAD WITHOUT COMPLETED DATE/TIME: 09/25/2018 11:34 am REASON FOR STUDY: Involuntary movements COMPARISON: None. TECHNIQUE: Axial images acquired through the brain without intravenous contrast. Images reviewed wi th bone, brain and subdural windows. Additional sagittal and coronal reconstructions were generated. Images stored on PACS. All CT scanners at this facility use dose modulation, iterative reconstruction, and/or weight based d osing when appropriate to reduce radiation dose to as low as reasonably achievable (ALARA). [facility]: Dose Right [facility]: CareDose [facility]: Dose Right [facility]: Teradose 4D [facility]: [employer] RADIATION DOSE: CT Rad equipment meets quality standard of care and radiation dose reduction techniq ues were employed. CTDIvol: 53.2 mGy. DLP: 1070 mGy-cm. mGy. LIMITATIONS: None. FINDINGS: VENTRICLES: Normal size and contour. CEREBRUM: No masses. No hemorrhage. No midline shift. No evidence for acute infarction. Normal gra y/white matter differentiation. No areas of low density in the white matter. CEREBELLUM: No masses. No hemorrhage. No alteration of density. No evidence for acute infarction. EXTRAAXIAL SPACES: No fluid collections. No masses. ORBITS AND GLOBE: No intra- or extraconal masses. Normal contour of globe without masses. CALVARIUM: No fracture. PARANASAL SINUSES: No fluid or mucosal thickening. SOFT TISSUES: No mass or hematoma. OTHER: No other significant finding. IMPRESSION: NORMAL BRAIN CT WITHOUT CONTRAST. EVIDENCE OF ACUTE STROKE: NO. COMMENT: Quality ID # [id number]: Final reports with documentation of one or more dose reduction techniques (e.g., Automated exposure control, adjustment of the mA and/or kV according to patient size, use of iterative reconstruction technique) TECHNICAL DOCUMENTATION: JOB ID: [id number] [employer] All Rights Reserved Reading location - IP/workstation name: [email or web address]
[2018-09-25] MEDS: ACETAMINOPHEN 650 MG SUPP.RECT PR PRN (21:56)
[2018-09-26] MEDS: PROPOFOL 1,000 MG/100 ML INFUS..BTL IV PRN ×4 (00:10→20:32)
[2018-09-26] MEDS ORDERED: FENTANYL CITRATE INJ/PF 100 MCG/2 ML AMPUL IV PRN (00:17)
[2018-09-26] MEDS: KETOROLAC TROMETHAMINE INJ/PF 30 MG/1 ML SDV IV PRN ×3 (00:36→17:39)
[2018-09-26] MEDS: MIDAZOLAM HCL 50 MG/100 ML RTUINJ IV PRN ×4 (02:24→16:29)
--- NOTE | 2018-09-26 02:43 | PROGRESS NOTE E ---
Progress Note NAME: KAVITA ALCALA : 1990 AGE: 28Y DATE: 09/25/2018 ROOM: 611 SUBJECTIVE: The patient was seen this morning on rounds. The patient was found to be quite agitated with significant hypertension, especially diastolic. The patient was tachypneic with a rate in the 40s and the patient was jerking. The patient had no definite evidence of seizures. She still had reflexes, however, it appeared she was having involuntary spasms at times. The patient's sedation was increased and these did diminish with an increase of sedation. But, it did take sometime. Did order a STAT head CT which was found to be unremarkable. The patient was loaded with Keppra to just ensure there was no withdrawal seizures so forth. The patient appears to be having significant DTs at this time and did respond nicely to valium in addition to her other sedatives. The patient has remained afebrile. Her blood pressures have been significantly elevated and the patient is unable to voice any specific concerns at this time. BRIEF HISTORY: The patient is a 28-year-old female with a past medical history of heavy drinking as well as tobacco dependency and possible asthma. The patient presented to the Emergency Department with a chief complaint of shortness of breath, significant tachypnea. The patient's blood gas was not too bad; however, the patient was breathing upwards of 40 to 50 times a minute and subsequently required intubation. The patient did well initially, however, the patient became significantly hypertensive into the second day as well as tachycardic and agitated. The patient's significant other did endorse heavy alcohol use. The patient appears to have bilateral pneumonitis, which may possibly be an aspiration etiology versus a viral process versus a community acquired pneumonia. Therefore, the patient has been covered for the above and sputum has been unable to be sent. REVIEW OF SYSTEMS: Unobtainable. MEDICATIONS: Reviewed. OBJECTIVE: GENERAL: The patient is a 28-year-old female who is intubated, sedated, who is more comfortable now but earlier was distressed. VITAL SIGNS: Temperature is 98.1, pulse 122, respirations 32, blood pressure is 167/113, oxygen saturation is 92% on 40% FiO2. SKIN: Warm and dry. No rash. She is not diaphoretic. HEENT: Her pupils are sluggish but reactive. Conjunctivae pink. ET tube is in place. CARDIOVASCULAR: Heart is regular. There is no murmur or rub. CHEST: Clear, symmetrical, unlabored. ABDOMEN: Soft, nontender. EXTREMITIES: No clubbing, cyanosis, edema. Before the sedation was increased she did have appropriate Babinski sign bilaterally. PSYCHIATRIC: Unable to assess. DIAGNOSTICS: Lab values are as follows - hematology obtained on 09/25/2018; WBCs are 10.9, hemoglobin is 11.6, hematocrit is 32.8, platelet count is 99,000. Chemistry obtained on 09/25/2018; sodium is 140, potassium 4.0, chloride is 111, carbon dioxide 20, BUN 8, creatinine 0.4, glucose 151, calcium is 8.7, magnesium is 2.1, AST 12, ALT is 52, total protein 5.5, albumin 3.1. IMPRESSION AND PLAN: 1. BILATERAL PNEUMONITIS, THIS COULD BE VIRAL VERSUS COMMUNITY ACQUIRED VERSUS ASPIRATION ETIOLOGY. The patient remains on broad spectrum antibiotic coverage, including coverage for atypicals and anaerobes given the severity of her illness. Chest x-ray does show evidence of a left lower lobe pneumonia. Will follow. 2. ACUTE HYPOXEMIC RESPIRATORY FAILURE. The patient remains mechanically intubated. Do appreciate pulmonology's help with this. The patient has required a lot of sedation for ventilation compliance. Will repeat chest x-ray in the morning and follow. 3. ALCOHOL USE WITH DELIRIUM TREMENS. This does appear to be a continuous dependency. The patient has been supplement B vitamins. She remains on a Versed drip in addition to the propofol and did require a couple of doses of valium as well. She is much more comfortable at this time. 4. INVOLUNTARY MOVEMENTS. Uncertain of the exact process of this. Nothing definite to appear to be seizure. However, given the patient's alcohol use, of course this is suspect. The patient's magnesium is in appropriate range but will go ahead and supplement some additional magnesium. Will obtain a CT of the head. Will load her with Keppra and obtain and EEG for the sake of completion. CODE STATUS: The patient is a full code. DISPOSITION: Depending on the patient's symptomatology and diagnostic findings will reevaluate as needed. TIME SPENT: On this critical care visit, including assessment and plan, physical examination, and review of records is 35 minutes. DICTATING PHYSICIAN: FIONA DE LEON NP [id number] PHY#: [id number] ID: [id number] JOB#: [id number] ACCT: [id number] cc: >
[2018-09-26 04:40] LABS: ABSOLUTE EOSINOPHILS # (AUTO) 0.1 10^3/uL (0.0-0.6); ABSOLUTE LYMPHOCYTES (AUTO) 1.7 10^3/uL (0.5-4.7); ABSOLUTE MONOCYTES (AUTO) 0.8 10^3/uL (0.1-1.4); ABSOLUTE NEUT (AUTO) 5.2 10^3/uL (1.7-8.2); BASOPHILS % (AUTO) 0.1 % (0-2); EOSINOPHILS % (AUTO) 0.8 % (0-6); HEMATOCRIT 32.6 % (36.0-47.0); LYMPHOCYTES % (AUTO) 21.9 % (13-45); MEAN CORPUSCULAR HEMOGLOBIN 30.2 pg (27.0-33.4); MEAN CORPUSCULAR HGB CONC 33.6 g/dL (32.0-36.0); MEAN CORPUSCULAR VOLUME 90 fl (80-97); MONOCYTES % (AUTO) 10.2 % (3-13); RED BLOOD COUNT 3.63 10^6/uL (3.72-5.28); RED CELL DISTRIBUTION WIDTH 14.5 % (11.5-14.0); TOTAL CELLS COUNTED % (AUTO) 100 %; WHITE BLOOD COUNT 7.7 10^3/uL (4.0-10.5)
[2018-09-26 04:59] LABS: PLATELET COUNT 90 10^3/uL (150-450)
[2018-09-26] MEDS: PIPERACILLIN SODIUM/TAZOBACTAM 4.5 GM in NORMAL SALINE 100 ML IV SCH ×3 (05:12→17:29)
[2018-09-26 05:33] LABS: ALANINE AMINOTRANSFERASE 12 U/L (9-52); ALBUMIN 2.8 g/dL (3.5-5.0); ALKALINE PHOSPHATASE 43 U/L (38-126); ANION GAP 9 (5-19); ASPARTATE AMINO TRANSFERASE 11 U/L (14-36); BILIRUBIN,DIRECT 0.3 mg/dL (0.0-0.4); BILIRUBIN,TOTAL 0.4 mg/dL (0.2-1.3); BLOOD UREA NITROGEN 8 mg/dL (7-20); CALCIUM 8.2 mg/dL (8.4-10.2); CARBON DIOXIDE 22 mmol/L (22-30); CHLORIDE 109 mmol/L (98-107); GLUCOSE 105 mg/dL (75-110); POTASSIUM 3.8 mmol/L (3.6-5.0); SODIUM 139.7 mmol/L (137-145); TOTAL PROTEIN 5.1 g/dL (6.3-8.2)
[2018-09-26 05:33] LABS: ARTERIAL BLOOD BASE EXCESS -0.9 mmol/L; ARTERIAL BLOOD FIO2 45%; ARTERIAL BLOOD H2CO3 1.17 mmol/L (1.05-1.35); ARTERIAL BLOOD HCO3 23.7 mmol/L (20-24); ARTERIAL BLOOD O2 SATURATION 97.7 % (94-98); ARTERIAL BLOOD PCO2 38.9 mmHg (35-45); ARTERIAL BLOOD PO2 102.9 mmHg (80-100); ARTERIAL BLOOD TOTAL CO2 24.9 mmol/L (21-25)
[2018-09-26] MEDS: LEVALBUTEROL HCL NEB 1.25 MG/3 ML AMPUL NEB SCH ×2 (07:41→16:25)
[2018-09-26] MEDS: IPRATROPIUM BROMIDE 0.02% NEB 0.5 MG/2.5 ML AMPUL NEB SCH ×2 (07:41→16:25)
[2018-09-26] MEDS: BUDESONIDE NEB 0.5 MG/2 ML AMPUL NEB SCH ×2 (07:41→21:02)
[2018-09-26] MEDS: POTASSI CL 20 MEQ/D5-1/2NS 1L 1,000 ML IV PRN ×2 (07:59→16:30)
--- NOTE | 2018-09-26 08:23 | RADIOLOGY REPORT (SQ) ---
EXAM DESCRIPTION: CHEST SINGLE VIEW COMPLETED DATE/TIME: 09/26/2018 6:59 am REASON FOR STUDY: On vent COMPARISON: 09/25/2018. FINDINGS: Single-view chest AP portable upright timed 0636 hours in PACs. Endotracheal and nasogastric tubes remain in good position. Mild volume loss/ consolidation in the left base, chronic. Overall stable appearance the chest. TECHNICAL DOCUMENTATION: JOB ID: [id number] Reading location - IP/workstation name: [email or web address]
[2018-09-26] MEDS: FONDAPARINUX SODIUM INJ 2.5 MG/0.5 ML DISP.SYRIN SUBCUT SCH ×3 (10:19→13:24)
[2018-09-26] MEDS: FOLIC ACID 1 MG TABLET NG SCH (10:52)
[2018-09-26] MEDS: LEVETIRACETAM 1000 MG/NACL-ISO 1,000 MG/100 ML RTUPB IV SCH ×2 (12:59→21:49)
[2018-09-26] MEDS: DOXYCYCLINE HYCLATE 100 MG in DEXTROSE 5%-WATER 250 ML IV SCH ×2 (13:12→21:50)
[2018-09-26] MEDS: ACETAMINOPHEN 650 MG SUPP.RECT PR PRN (13:16)
[2018-09-26] MEDS: THIAMINE HCL 100 MG TABLET NG SCH (13:24)
--- NOTE | 2018-09-26 14:38 | PDOC PROGRESS REPORT ---
Subjective Progress Note for:: 09/26/18 Subjective:: Is a 28 years old female patient presents to [facility] ER with chief complaint of shortness of breath which is getting worse progressively. Patient initially tried to use BiPAP but shortness of breath failed to respond and her condition deteriorated which required emergency intubation and transfer to ICU. This morning I seen patient intubated. She is now on pressure support and scheduled for weaning trial. Reason For Visit: ACUTE RESPIRATORY FAILURE WITH HYPOXIA Physical Exam Vital Signs: Temp Pulse Resp BP Pulse Ox 102.4 F H 94 23 H 138/76 H 98 09/26/18 13:16 09/26/18 12:00 09/26/18 12:00 09/26/18 12:00 09/26/18 12:53 Intake & Output 09/25/18 09/26/18 09/27/18 06:59 06:59 06:59 Intake Total 4655 506 Output Total 3475 900 Balance 1180 -394 Weight 65 kg General appearance: PRESENT: no acute distress Eye exam: PRESENT: conjunctiva pink Neck exam: ABSENT: carotid bruit, JVD, lymphadenopathy, thyromegaly Respiratory exam: PRESENT: clear to auscultation maria de jesus. ABSENT: rales, rhonchi, wheezes Cardiovascular exam: PRESENT: RRR. ABSENT: diastolic murmur, rubs, systolic murmur GI/Abdominal exam: PRESENT: normal bowel sounds, soft. ABSENT: distended, guarding, mass, organolmegaly, rebound, tenderness Results Laboratory Results: 09/26/18 04:28 09/26/18 04:28 09/26/18 09/26/18 09/26/18 04:20 04:28 04:28 WBC 7.7 RBC 3.63 L Hgb 11.0 L Hct 32.6 L MCV 90 MCH 30.2 MCHC 33.6 RDW 14.5 H Plt Count 90 L Seg Neutrophils % 67.0 Lymphocytes % 21.9 Monocytes % 10.2 Eosinophils % 0.8 Basophils % 0.1 Absolute Neutrophils 5.2 Absolute Lymphocytes 1.7 Absolute Monocytes 0.8 Absolute Eosinophils 0.1 Absolute Basophils 0.0 Carbonic Acid Cancelled HCO3/H2CO3 Ratio Cancelled ABG pH Cancelled ABG pCO2 Cancelled ABG pO2 Cancelled ABG HCO3 Cancelled ABG O2 Saturation Cancelled ABG Base Excess Cancelled FiO2 Cancelled Sodium 139.7 Potassium 3.8 Chloride 109 H Carbon Dioxide 22 Anion Gap 9 BUN 8 Creatinine 0.45 L Est GFR ( Amer) > 60 Est GFR (Non-Af Amer) > 60 Glucose 105 Calcium 8.2 L Magnesium 2.1 Total Bilirubin 0.4 AST 11 L ALT 12 Alkaline Phosphatase 43 Total Protein 5.1 L Albumin 2.8 L 09/26/18 05:23 WBC RBC Hgb Hct MCV MCH MCHC RDW Plt Count Seg Neutrophils % Lymphocytes % Monocytes % Eosinophils % Basophils % Absolute Neutrophils Absolute Lymphocytes Absolute Monocytes Absolute Eosinophils Absolute Basophils Carbonic Acid 1.17 HCO3/H2CO3 Ratio 20:1 ABG pH 7.40 ABG pCO2 38.9 ABG pO2 102.9 H ABG HCO3 23.7 ABG O2 Saturation 97.7 ABG Base Excess -0.9 FiO2 45% Sodium Potassium Chloride Carbon Dioxide Anion Gap BUN Creatinine Est GFR ( Amer) Est GFR (Non-Af Amer) Glucose Calcium Magnesium Total Bilirubin AST ALT Alkaline Phosphatase Total Protein Albumin 09/23/18 09/23/18 09/23/18 00:39 00:39 06:40 Creatine Kinase 39 Cancelled CK-MB (CK-2) < 0.22 Troponin I < 0.012 NT-Pro-B Natriuret Pep 09/23/18 09/23/18 09/23/18 06:40 07:05 07:05 Creatine Kinase 29 L CK-MB (CK-2) Cancelled < 0.22 Troponin I Cancelled < 0.012 NT-Pro-B Natriuret Pep 09/23/18 09/23/18 09/24/18 12:36 12:36 03:45 Creatine Kinase 38 CK-MB (CK-2) 0.82 Troponin I < 0.012 NT-Pro-B Natriuret Pep 358 H Impressions: Chest/Abdomen CTA 09/23/18 01:41 IMPRESSION: Negative for pulmonary embolus. Perihilar groundglass opacities bilaterally consistent with pneumonitis TECHNICAL DOCUMENTATION: Quality ID # 436: Final reports with documentation of one or more dose reduction techniques (e.g., Automated exposure control, adjustment of the mA and/or kV according to patient size, use of iterative reconstruction technique) copyright 2011 [employer]- All Rights Reserved Head CT 09/25/18 00:00 IMPRESSION: NORMAL BRAIN CT WITHOUT CONTRAST. EVIDENCE OF ACUTE STROKE: NO. Assessment & Plan - Diagnosis (1) Acute respiratory failure with hypoxia Is this a current diagnosis for this admission?: Yes Plan: Patient scheduled for weaning trial and later extubation. (2) Dyspnea and respiratory abnormalities Is this a current diagnosis for this admission?: Yes Plan: Continue current regimen (3) Tobacco dependence Is this a current diagnosis for this admission?: Yes Plan: Patient will be counseled and encouraged to quit smoking, and she fully awake alert and oriented. (4) GERD (gastroesophageal reflux disease) Qualifiers: Esophagitis presence: without esophagitis Qualified Code(s): K21.9 - Gastro-esophageal reflux disease without esophagitis Is this a current diagnosis for this admission?: Yes Plan: Continue PPI.
[2018-09-26] MEDS ORDERED: IBUPROFEN 800 MG TABLET ONE (14:57)
[2018-09-26] MEDS ORDERED: IBUPROFEN SUSP 100 MG/5 ML ORAL SYRINGE NG ONE ×2 (15:15→17:30)
[2018-09-26] MEDS ORDERED: VALPROATE SODIUM 500 MG in NORMAL SALINE 100 ML IV ONE (19:30)
[2018-09-27] MEDS: IPRATROPIUM BROMIDE 0.02% NEB 0.5 MG/2.5 ML AMPUL NEB SCH ×3 (00:24→16:56)
[2018-09-27] MEDS: LEVALBUTEROL HCL NEB 1.25 MG/3 ML AMPUL NEB SCH ×3 (00:24→16:56)
[2018-09-27] MEDS: MIDAZOLAM HCL 50 MG/100 ML RTUINJ IV PRN ×3 (00:28→15:43)
[2018-09-27] MEDS: PIPERACILLIN SODIUM/TAZOBACTAM 4.5 GM in NORMAL SALINE 100 ML IV SCH ×4 (00:28→17:56)
[2018-09-27] MEDS: PROPOFOL 1,000 MG/100 ML INFUS..BTL IV PRN ×4 (02:10→21:25)
[2018-09-27] MEDS: POTASSI CL 20 MEQ/D5-1/2NS 1L 1,000 ML IV PRN ×2 (05:52→17:55)
--- NOTE | 2018-09-27 08:09 | EEG PRO FEE REPORT ---
EEG INTERPRETATION PATIENT NAME: KAVITA ALCALA ROOM#: 611 ORDER#: [id number] DATE OF STUDY: 09/26/2018 : 1990 REFERRING MD: FIONA DE LEON NP REASON FOR STUDY: Involuntary movement MEDICATIONS: Piperacillin/Tazobactam, Thiamine, Zofran, Versed, Diprivan, Tylenol, Albuterol, Fentanyl, Folic acid, Fondaparinux, Atrovent, Toradol, Xopenex, Keppra, Lopressor, Protonix History This is a 28 year old female with a history of cardiac disorders, heart murmurs, GI disorder, ulcer, GERD, ethanol use who presented with respiratory failure. This EEG was requested for evaluation of epileptiform activity due involuntary movements. EEG Interpretation This EEG was recorded on an intubated patient. The predominant EEG pattern consisted of nearly continuous generalized {or fragmentary generalized} spike wave activity occurring at approximately 1.5 Hz. The remainder of the background consisted of predominantly low amplitude intermixed 4-10 Hz theta-alpha activity. There was minimal generalized beta activity. The EEG is symmetric in amplitudes and frequencies. There was no sleep architecture. There were no apparent spontaneous eye openings or closings, but the dental laboratory technician apprentice manually opened and closed the patients eyes multiple times. There was no reactivity to the EEG with passive eye opening and closure. Photic stimulation resulted in no photic driving. The EKG showed a regular rhythm with typically 80-90 bpm. EEG Impression This EEG is markedly abnormal, and most concerning for non-convulsive status-epilepticus. Clinical correlation is needed, and treatment for non-convulsive status-epilepticus is recommended. Would consider a repeat EEG after appropriate treatment if clinically indicated. These EEG findings were verbally relayed to the covering physician Dr Gabi Bello on September 26, 2018 at 18:03 EST. INTERPRETING PHYSICIAN: ENRIQUE PAULA M.D. /: MTEFFT TT: [id number] ID: [id number] /: 2051 TD: 1807 JOB: [id number] cc:Bree COLVIN M.D. MICHAEL KENNEDY, NP > MTDD
[2018-09-27] MEDS: FONDAPARINUX SODIUM INJ 2.5 MG/0.5 ML DISP.SYRIN SUBCUT SCH (08:34)
[2018-09-27] MEDS: BUDESONIDE NEB 0.5 MG/2 ML AMPUL NEB SCH ×2 (08:57→19:47)
[2018-09-27 09:59] LABS: ARTERIAL BLOOD BASE EXCESS 1.2 mmol/L; ARTERIAL BLOOD H2CO3 1.12 mmol/L (1.05-1.35); ARTERIAL BLOOD HCO3 25.1 mmol/L (20-24); ARTERIAL BLOOD O2 SATURATION 93.2 % (94-98); ARTERIAL BLOOD PCO2 37.3 mmHg (35-45); ARTERIAL BLOOD PH 7.45 (7.35-7.45); ARTERIAL BLOOD PO2 63.3 mmHg (80-100); ARTERIAL BLOOD TOTAL CO2 26.3 mmol/L (21-25)
[2018-09-27 10:01] LABS: ARTERIAL BLOOD FIO2 45%
--- NOTE | 2018-09-27 10:11 | PDOC PROGRESS REPORT ---
Subjective Progress Note for:: 09/27/18 Subjective:: 28 years old female patient presents to [facility] ER with chief complaint of shortness of breath which is getting worse progressively. Patient initially tried to use BiPAP but shortness of breath failed to respond and her condition deteriorated which required emergency intubation and transfer to ICU. This morning I seen patient intubated. She is now on pressure support and scheduled for weaning trial. 09/27/[id number]-cczd-old female admitted for shortness of breath not responded well to BiPAP she was intubated. We are trying to taper off the sedation today to start weaning process. No acute events in the last 24 hours. Patient is afebrile. EEG was done yesterday the neurologist assessment is nonconvulsive status epilepticus in the EEG report recommendation is to add a Depakote to the present medication. Reason For Visit: ACUTE RESPIRATORY FAILURE WITH HYPOXIA Physical Exam Vital Signs: Temp Pulse Resp BP Pulse Ox 97.5 F 68 19 104/50 L 97 09/27/18 06:30 09/27/18 08:59 09/27/18 08:59 09/27/18 06:26 09/27/18 08:59 Intake & Output 09/26/18 09/27/18 09/28/18 06:59 06:59 06:59 Intake Total 4655 4374 142 Output Total 3475 3825 Balance 1180 549 142 Weight 65 kg 66.3 kg General appearance: PRESENT: no acute distress, other - Patient is still intubated under sedation. Head exam: PRESENT: atraumatic Eye exam: PRESENT: PERRLA Mouth exam: PRESENT: moist, tongue midline Neck exam: ABSENT: carotid bruit, JVD, lymphadenopathy, thyromegaly Respiratory exam: PRESENT: decreased breath sounds Cardiovascular exam: PRESENT: RRR. ABSENT: diastolic murmur, rubs, systolic murmur GI/Abdominal exam: PRESENT: normal bowel sounds, soft. ABSENT: distended, guarding, mass, organolmegaly, rebound, tenderness Extremities exam: PRESENT: full ROM. ABSENT: calf tenderness, clubbing, pedal edema Neurological exam: PRESENT: other - Shunt is still intubated under sedation unable to to neurological evaluation. Results Laboratory Results: 09/26/18 04:28 09/26/18 04:28 09/25/18 21:20 Sputum Gram Stain - Final 09/25/18 21:20 Sputum Sputum Culture - Final NO GROWTH 2 DAYS 09/23/18 09/23/18 09/23/18 00:39 00:39 06:40 Creatine Kinase 39 Cancelled CK-MB (CK-2) < 0.22 Troponin I < 0.012 NT-Pro-B Natriuret Pep 09/23/18 09/23/18 09/23/18 06:40 07:05 07:05 Creatine Kinase 29 L CK-MB (CK-2) Cancelled < 0.22 Troponin I Cancelled < 0.012 NT-Pro-B Natriuret Pep 09/23/18 09/23/18 09/24/18 12:36 12:36 03:45 Creatine Kinase 38 CK-MB (CK-2) 0.82 Troponin I < 0.012 NT-Pro-B Natriuret Pep 358 H Impressions: Chest/Abdomen CTA 09/23/18 01:41 IMPRESSION: Negative for pulmonary embolus. Perihilar groundglass opacities bilaterally consistent with pneumonitis TECHNICAL DOCUMENTATION: Quality ID # 436: Final reports with documentation of one or more dose reduction techniques (e.g., Automated exposure control, adjustment of the mA and/or kV according to patient size, use of iterative reconstruction technique) copyright 2011 [employer]- All Rights Reserved Head CT 09/25/18 00:00 IMPRESSION: NORMAL BRAIN CT WITHOUT CONTRAST. EVIDENCE OF ACUTE STROKE: NO. Assessment & Plan - Diagnosis (1) Acute respiratory failure with hypoxia Is this a current diagnosis for this admission?: Yes Plan: 09/27/2018-CT chest done on 09/23/2018 suggestive of bilateral groundglass opacifications suggestive of pneumonitis. Blood cultures and urine cultures are negative. She did is presently on doxycycline and Zosyn. Plan is to continue the present management chest x-ray today is suggestive of chronic left base consolidation. plan Is to continue the present management. We started the weaning process today hopefully we can extubate her by tomorrow. ABG done today on 40% oxygen with pH of 7.4 PCO2 39 PO2 63.3 bicarb is 23. (2) Pneumonia Is this a current diagnosis for this admission?: Yes Plan: 09/27/2018-CT chest done on 09/23/2018 suggestive of bilateral opacifications suggesting pneumonitis. Presently on doxycycline and IV Zosyn. Plan is to continue the present management probably try to extubate her today or tomorrow. Blood cultures urine cultures are negative so far. Pneumonia may be secondary to gram-negative bacteria it can be due to aspiration pneumonia. (3) Tobacco dependence Is this a current diagnosis for this admission?: Yes Plan: 09/27/2018 history of tobacco dependency to place her on nicotine patch 21 mcg daily. - Time Time Spent with patient: 15-24 minutes Medications reviewed and adjusted accordingly: Yes Anticipated discharge: Home
[2018-09-27 10:45] LABS: ABSOLUTE EOSINOPHILS # (AUTO) 0.4 10^3/uL (0.0-0.6); ABSOLUTE LYMPHOCYTES (AUTO) 1.3 10^3/uL (0.5-4.7); ABSOLUTE MONOCYTES (AUTO) 0.5 10^3/uL (0.1-1.4); ABSOLUTE NEUT (AUTO) 2.8 10^3/uL (1.7-8.2); BASOPHILS % (AUTO) 0.3 % (0-2); EOSINOPHILS % (AUTO) 7.7 % (0-6); HEMATOCRIT 32.5 % (36.0-47.0); HEMOGLOBIN 10.9 g/dL (12.0-15.5); LYMPHOCYTES % (AUTO) 25.7 % (13-45); MEAN CORPUSCULAR HEMOGLOBIN 30.4 pg (27.0-33.4); MEAN CORPUSCULAR HGB CONC 33.7 g/dL (32.0-36.0); MEAN CORPUSCULAR VOLUME 90 fl (80-97); MONOCYTES % (AUTO) 10.5 % (3-13); PLATELET COUNT 102 10^3/uL (150-450); RED CELL DISTRIBUTION WIDTH 14.1 % (11.5-14.0); SEGMENTED NEUTROPHILS % (AUTO) 55.8 % (42-78); TOTAL CELLS COUNTED % (AUTO) 100 %; WHITE BLOOD COUNT 5.1 10^3/uL (4.0-10.5)
[2018-09-27] MEDS: DOXYCYCLINE HYCLATE 100 MG in DEXTROSE 5%-WATER 250 ML IV SCH ×2 (10:46→21:26)
[2018-09-27] MEDS: VALPROATE SODIUM 500 MG in NORMAL SALINE 100 ML IV SCH ×2 (10:46→21:26)
[2018-09-27] MEDS: FOLIC ACID 1 MG TABLET NG SCH (10:47)
[2018-09-27] MEDS: THIAMINE HCL 100 MG TABLET NG SCH (10:47)
[2018-09-27] MEDS: LEVETIRACETAM 1000 MG/NACL-ISO 1,000 MG/100 ML RTUPB IV SCH ×2 (10:52→21:25)
[2018-09-27 11:07] LABS: ALANINE AMINOTRANSFERASE 15 U/L (9-52); ALBUMIN 2.8 g/dL (3.5-5.0); ALKALINE PHOSPHATASE 49 U/L (38-126); ANION GAP 7 (5-19); ASPARTATE AMINO TRANSFERASE 12 U/L (14-36); BILIRUBIN,DIRECT 0.3 mg/dL (0.0-0.4); BILIRUBIN,TOTAL 0.5 mg/dL (0.2-1.3); BLOOD UREA NITROGEN 8 mg/dL (7-20); CALCIUM 8.7 mg/dL (8.4-10.2); CARBON DIOXIDE 26 mmol/L (22-30); CHLORIDE 106 mmol/L (98-107); GLUCOSE 92 mg/dL (75-110); POTASSIUM 4.1 mmol/L (3.6-5.0); SODIUM 139.3 mmol/L (137-145); TOTAL PROTEIN 5.3 g/dL (6.3-8.2)
--- NOTE | 2018-09-27 11:10 | RADIOLOGY REPORT (SQ) ---
EXAM DESCRIPTION: CHEST SINGLE VIEW COMPLETED DATE/TIME: 09/27/2018 10:35 am REASON FOR STUDY: shortness of breath COMPARISON: 09/26/2018. FINDINGS: Single-view chest AP semi upright. Timed approximately 1005 hours in PACs. Endotracheal and nasogastric tubes in place, appropriate. External artifacts from various leads. Persistent diminished aeration left base, either consolidation or volume loss with mild left effusion . Streaky areas of subsegmental atelectasis are further suggested in the upper lobes. TECHNICAL DOCUMENTATION: JOB ID: [id number] Reading location - IP/workstation name: [email or web address]
[2018-09-27] MEDS: KETOROLAC TROMETHAMINE INJ/PF 30 MG/1 ML SDV IV PRN (15:44)
[2018-09-28] MEDS: LEVALBUTEROL HCL NEB 1.25 MG/3 ML AMPUL NEB SCH ×3 (00:29→16:35)
[2018-09-28] MEDS: IPRATROPIUM BROMIDE 0.02% NEB 0.5 MG/2.5 ML AMPUL NEB SCH ×3 (00:29→16:35)
[2018-09-28] MEDS: PIPERACILLIN SODIUM/TAZOBACTAM 4.5 GM in NORMAL SALINE 100 ML IV SCH ×2 (01:01→05:18)
[2018-09-28] MEDS: MIDAZOLAM HCL 50 MG/100 ML RTUINJ IV PRN (01:58)
[2018-09-28] MEDS: PROPOFOL 1,000 MG/100 ML INFUS..BTL IV PRN (03:07)
[2018-09-28 03:51] LABS: ABSOLUTE EOSINOPHILS # (AUTO) 0.5 10^3/uL (0.0-0.6); ABSOLUTE LYMPHOCYTES (AUTO) 1.4 10^3/uL (0.5-4.7); ABSOLUTE MONOCYTES (AUTO) 0.4 10^3/uL (0.1-1.4); ABSOLUTE NEUT (AUTO) 2.2 10^3/uL (1.7-8.2); BASOPHILS % (AUTO) 0.4 % (0-2); EOSINOPHILS % (AUTO) 10.3 % (0-6); HEMATOCRIT 29.4 % (36.0-47.0); LYMPHOCYTES % (AUTO) 30.3 % (13-45); MEAN CORPUSCULAR HEMOGLOBIN 30.5 pg (27.0-33.4); MEAN CORPUSCULAR HGB CONC 34.2 g/dL (32.0-36.0); MEAN CORPUSCULAR VOLUME 89 fl (80-97); MONOCYTES % (AUTO) 9.2 % (3-13); PLATELET COUNT 107 10^3/uL (150-450); RED BLOOD COUNT 3.29 10^6/uL (3.72-5.28); RED CELL DISTRIBUTION WIDTH 13.8 % (11.5-14.0); SEGMENTED NEUTROPHILS % (AUTO) 49.8 % (42-78); TOTAL CELLS COUNTED % (AUTO) 100 %; WHITE BLOOD COUNT 4.5 10^3/uL (4.0-10.5)
[2018-09-28 04:07] LABS: ALANINE AMINOTRANSFERASE 9 U/L (9-52); ALBUMIN 2.7 g/dL (3.5-5.0); ALKALINE PHOSPHATASE 43 U/L (38-126); ANION GAP 6 (5-19); ASPARTATE AMINO TRANSFERASE 11 U/L (14-36); BILIRUBIN,DIRECT 0.4 mg/dL (0.0-0.4); BILIRUBIN,TOTAL 0.4 mg/dL (0.2-1.3); BLOOD UREA NITROGEN 9 mg/dL (7-20); CALCIUM 8.6 mg/dL (8.4-10.2); CARBON DIOXIDE 26 mmol/L (22-30); CHLORIDE 107 mmol/L (98-107); GLUCOSE 110 mg/dL (75-110); SODIUM 138.8 mmol/L (137-145)
[2018-09-28 05:10] LABS: ARTERIAL BLOOD BASE EXCESS 3.4 mmol/L; ARTERIAL BLOOD H2CO3 1.19 mmol/L (1.05-1.35); ARTERIAL BLOOD HCO3 27.5 mmol/L (20-24); ARTERIAL BLOOD O2 SATURATION 99.1 % (94-98); ARTERIAL BLOOD PCO2 39.4 mmHg (35-45); ARTERIAL BLOOD PH 7.46 (7.35-7.45); ARTERIAL BLOOD PO2 155.5 mmHg (80-100); ARTERIAL BLOOD TOTAL CO2 28.7 mmol/L (21-25)
[2018-09-28 05:16] LABS: ARTERIAL BLOOD FIO2 45%
[2018-09-28] MEDS: POTASSI CL 20 MEQ/D5-1/2NS 1L 1,000 ML IV PRN ×2 (05:19→16:00)
[2018-09-28] MEDS: BUDESONIDE NEB 0.5 MG/2 ML AMPUL NEB SCH ×2 (07:42→20:55)
--- NOTE | 2018-09-28 08:53 | RADIOLOGY REPORT (SQ) ---
EXAM DESCRIPTION: CHEST SINGLE VIEW COMPLETED DATE/TIME: 09/28/2018 6:45 am REASON FOR STUDY: resp failure COMPARISON: 09/27/2018. FINDINGS: Single-view chest AP portable semi upright 0610 hours. Slightly improved aeration globally. Appropriate lines and tubes including endotracheal and nasogastric. TECHNICAL DOCUMENTATION: JOB ID: [id number] Reading location - IP/workstation name: [email or web address]
[2018-09-28] MEDS: FONDAPARINUX SODIUM INJ 2.5 MG/0.5 ML DISP.SYRIN SUBCUT SCH (08:54)
[2018-09-28] MEDS: LEVETIRACETAM 1000 MG/NACL-ISO 1,000 MG/100 ML RTUPB IV SCH ×2 (09:54→21:05)
[2018-09-28] MEDS: NICOTINE 21 MG/24 HR PATCH.TD24 TD SCH (09:54)
[2018-09-28] MEDS: VALPROATE SODIUM 500 MG in NORMAL SALINE 100 ML IV SCH ×2 (09:54→21:05)
[2018-09-28] MEDS: DOXYCYCLINE HYCLATE 100 MG in DEXTROSE 5%-WATER 250 ML IV SCH ×2 (09:54→21:09)
[2018-09-28] MEDS: THIAMINE HCL 100 MG TABLET NG SCH (09:55)
[2018-09-28] MEDS: FOLIC ACID 1 MG TABLET NG SCH (09:55)
[2018-09-28] MEDS: ONDANSETRON HCL INJ/PF 4 MG/2 ML SDV IV PRN ×2 (12:34→18:05)
--- NOTE | 2018-09-28 13:18 | RADIOLOGY REPORT (SQ) ---
EXAM DESCRIPTION: CHEST SINGLE VIEW COMPLETED DATE/TIME: 09/28/2018 12:57 pm REASON FOR STUDY: possible aspiration COMPARISON: 09/28/2018 at 0610 hours. EXAM PARAMETERS: NUMBER OF VIEWS: One view. TECHNIQUE: Single frontal radiographic view of the chest acquired. RADIATION DOSE: NA LIMITATIONS: None. FINDINGS: LUNGS AND PLEURA: Patchy airspace disease particularly in the right upper lobe and left lo wer lobe. MEDIASTINUM AND HILAR STRUCTURES: No masses. Contour normal. HEART AND VASCULAR STRUCTURES: Heart normal in size. Normal vasculature. BONES: No acute findings. HARDWARE: Endotracheal tube and nasogastric tube unchanged. OTHER: No other significant finding. IMPRESSION: NO CHANGE IN APPEARANCE OF THE CHEST. TECHNICAL DOCUMENTATION: JOB ID: [id number] [employer]- All Rights Reserved Reading location - IP/workstation name: [email or web address]
[2018-09-28] MEDS: KETOROLAC TROMETHAMINE INJ/PF 30 MG/1 ML SDV IV PRN ×2 (13:29→21:04)
--- NOTE | 2018-09-28 13:37 | PDOC PROGRESS REPORT ---
Subjective Progress Note for:: 09/28/18 Subjective:: Patient remained intubated. She is potential for weaning trial and later extubation. Her EEG read by telemetry neurologist as worrisome for nonconvulsive status epilepticus and he recommended to add Depakote on top of the Keppra. He also recommended to repeat the EEG. Reason For Visit: ACUTE RESPIRATORY FAILURE WITH HYPOXIA Physical Exam Vital Signs: Temp Pulse Resp BP Pulse Ox 97.9 F 89 19 146/94 H 99 09/28/18 12:00 09/28/18 12:00 09/28/18 12:00 09/28/18 12:00 09/28/18 12:11 Intake & Output 09/27/18 09/28/18 09/29/18 06:59 06:59 06:59 Intake Total 4374 3955 472 Output Total 3825 4049 920 Balance 549 -94 -448 Weight 66.3 kg 64.6 kg General appearance: PRESENT: no acute distress Eye exam: PRESENT: conjunctiva pink Mouth exam: PRESENT: moist Respiratory exam: PRESENT: clear to auscultation maria de jesus. ABSENT: rales, rhonchi, wheezes Cardiovascular exam: PRESENT: RRR. ABSENT: diastolic murmur, rubs, systolic murmur Psychiatric exam: PRESENT: other - Patient responds to noxious stimuli appropriately. Results Laboratory Results: 09/28/18 03:42 09/28/18 03:42 09/28/18 09/28/18 09/28/18 03:42 03:42 04:39 WBC 4.5 RBC 3.29 L Hgb 10.0 L Hct 29.4 L MCV 89 MCH 30.5 MCHC 34.2 RDW 13.8 Plt Count 107 L Seg Neutrophils % 49.8 Lymphocytes % 30.3 Monocytes % 9.2 Eosinophils % 10.3 H Basophils % 0.4 Absolute Neutrophils 2.2 Absolute Lymphocytes 1.4 Absolute Monocytes 0.4 Absolute Eosinophils 0.5 Absolute Basophils 0.0 Carbonic Acid 1.19 HCO3/H2CO3 Ratio 23:1 ABG pH 7.46 H ABG pCO2 39.4 ABG pO2 155.5 H ABG HCO3 27.5 H ABG O2 Saturation 99.1 H ABG Base Excess 3.4 FiO2 45% Sodium 138.8 Potassium 4.0 Chloride 107 Carbon Dioxide 26 Anion Gap 6 BUN 9 Creatinine 0.42 L Est GFR ( Amer) > 60 Est GFR (Non-Af Amer) > 60 Glucose 110 Calcium 8.6 Magnesium 2.1 Total Bilirubin 0.4 AST 11 L ALT 9 Alkaline Phosphatase 43 Total Protein 5.0 L Albumin 2.7 L 09/25/18 21:20 Sputum Gram Stain - Final 09/25/18 21:20 Sputum Sputum Culture - Final NO GROWTH 2 DAYS 09/23/18 09/23/18 09/23/18 00:39 00:39 06:40 Creatine Kinase 39 Cancelled CK-MB (CK-2) < 0.22 Troponin I < 0.012 NT-Pro-B Natriuret Pep 09/23/18 09/23/18 09/23/18 06:40 07:05 07:05 Creatine Kinase 29 L CK-MB (CK-2) Cancelled < 0.22 Troponin I Cancelled < 0.012 NT-Pro-B Natriuret Pep 09/23/18 09/23/18 09/24/18 12:36 12:36 03:45 Creatine Kinase 38 CK-MB (CK-2) 0.82 Troponin I < 0.012 NT-Pro-B Natriuret Pep 358 H Impressions: Chest/Abdomen CTA 09/23/18 01:41 IMPRESSION: Negative for pulmonary embolus. Perihilar groundglass opacities bilaterally consistent with pneumonitis TECHNICAL DOCUMENTATION: Quality ID # 436: Final reports with documentation of one or more dose reduction techniques (e.g., Automated exposure control, adjustment of the mA and/or kV according to patient size, use of iterative reconstruction technique) copyright 2011 [employer]- All Rights Reserved Head CT 09/25/18 00:00 IMPRESSION: NORMAL BRAIN CT WITHOUT CONTRAST. EVIDENCE OF ACUTE STROKE: NO. Chest X-Ray 09/28/18 12:29 IMPRESSION: NO CHANGE IN APPEARANCE OF THE CHEST. 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 I will repeat EEG as recommended by neurologist. (2) Acute respiratory failure with hypoxia Is this a current diagnosis for this admission?: Yes Plan: Patient scheduled for weaning trial and later extubation. (3) Dyspnea and respiratory abnormalities Is this a current diagnosis for this admission?: Yes Plan: Continue current regimen (4) Tobacco dependence Is this a current diagnosis for this admission?: Yes Plan: Patient will be counseled and encouraged to quit smoking, and she fully awake alert and oriented. (5) GERD (gastroesophageal reflux disease) Qualifiers: Esophagitis presence: without esophagitis Qualified Code(s): K21.9 - Gastro-esophageal reflux disease without esophagitis Is this a current diagnosis for this admission?: Yes Plan: Continue PPI.
[2018-09-28] MEDS ORDERED: PROMETHAZINE HCL 25 MG SUPP.RECT PR ONE (20:00)
[2018-09-29] MEDS: LEVALBUTEROL HCL NEB 1.25 MG/3 ML AMPUL NEB SCH ×4 (00:24→23:37)
[2018-09-29] MEDS: IPRATROPIUM BROMIDE 0.02% NEB 0.5 MG/2.5 ML AMPUL NEB SCH ×4 (00:24→23:37)
[2018-09-29] MEDS: POTASSI CL 20 MEQ/D5-1/2NS 1L 1,000 ML IV PRN ×2 (01:59→12:13)
[2018-09-29 04:03] LABS: ABSOLUTE EOSINOPHILS # (AUTO) 0.5 10^3/uL (0.0-0.6); ABSOLUTE LYMPHOCYTES (AUTO) 1.5 10^3/uL (0.5-4.7); ABSOLUTE MONOCYTES (AUTO) 0.6 10^3/uL (0.1-1.4); BASOPHILS % (AUTO) 0.4 % (0-2); EOSINOPHILS % (AUTO) 7.6 % (0-6); HEMATOCRIT 34.5 % (36.0-47.0); HEMOGLOBIN 11.9 g/dL (12.0-15.5); LYMPHOCYTES % (AUTO) 22.1 % (13-45); MEAN CORPUSCULAR HEMOGLOBIN 30.7 pg (27.0-33.4); MEAN CORPUSCULAR HGB CONC 34.6 g/dL (32.0-36.0); MEAN CORPUSCULAR VOLUME 89 fl (80-97); MONOCYTES % (AUTO) 8.9 % (3-13); PLATELET COUNT 138 10^3/uL (150-450); RED BLOOD COUNT 3.89 10^6/uL (3.72-5.28); RED CELL DISTRIBUTION WIDTH 13.6 % (11.5-14.0); TOTAL CELLS COUNTED % (AUTO) 100 %; WHITE BLOOD COUNT 6.6 10^3/uL (4.0-10.5)
[2018-09-29 04:27] LABS: ALANINE AMINOTRANSFERASE 13 U/L (9-52); ALBUMIN 3.4 g/dL (3.5-5.0); ALKALINE PHOSPHATASE 55 U/L (38-126); ANION GAP 7 (5-19); ASPARTATE AMINO TRANSFERASE 17 U/L (14-36); BILIRUBIN,DIRECT 0.4 mg/dL (0.0-0.4); BILIRUBIN,TOTAL 0.7 mg/dL (0.2-1.3); BLOOD UREA NITROGEN 8 mg/dL (7-20); CALCIUM 9.2 mg/dL (8.4-10.2); CARBON DIOXIDE 26 mmol/L (22-30); CHLORIDE 107 mmol/L (98-107); GLUCOSE 95 mg/dL (75-110); PHOSPHORUS 3.8 mg/dL (2.5-4.5); POTASSIUM 3.7 mmol/L (3.6-5.0); TOTAL PROTEIN 6.2 g/dL (6.3-8.2)
[2018-09-29 05:16] LABS: ARTERIAL BLOOD H2CO3 1.11 mmol/L (1.05-1.35); ARTERIAL BLOOD HCO3 26.5 mmol/L (20-24); ARTERIAL BLOOD O2 SATURATION 97.3 % (94-98); ARTERIAL BLOOD PCO2 36.8 mmHg (35-45); ARTERIAL BLOOD PH 7.48 (7.35-7.45); ARTERIAL BLOOD PO2 88.2 mmHg (80-100); ARTERIAL BLOOD TOTAL CO2 27.6 mmol/L (21-25)
[2018-09-29 05:17] LABS: ARTERIAL BLOOD FIO2 ROOM AIR
[2018-09-29] MEDS: KETOROLAC TROMETHAMINE INJ/PF 30 MG/1 ML SDV IV PRN ×3 (08:21→23:28)
[2018-09-29] MEDS: FONDAPARINUX SODIUM INJ 2.5 MG/0.5 ML DISP.SYRIN SUBCUT SCH (08:24)
--- NOTE | 2018-09-29 08:27 | RADIOLOGY REPORT (SQ) ---
EXAM DESCRIPTION: CHEST SINGLE VIEW COMPLETED DATE/TIME: 09/29/2018 6:16 am REASON FOR STUDY: resp failure/pna COMPARISON: 09/28/2018. EXAM PARAMETERS: NUMBER OF VIEWS: One view. TECHNIQUE: Single frontal radiographic view of the chest acquired. RADIATION DOSE: NA LIMITATIONS: None. FINDINGS: LUNGS AND PLEURA: Faint airspace disease in the right upper lobe and left lung base. Slig ht improved aeration. MEDIASTINUM AND HILAR STRUCTURES: No masses. Contour normal. HEART AND VASCULAR STRUCTURES: Heart normal in size. Normal vasculature. BONES: No acute findings. HARDWARE: Interval removal of the endotracheal tube and nasogastric tube. OTHER: No other significant finding. IMPRESSION: SLIGHT IMPROVED AERATION IN PREVIOUSLY SEEN BILATERAL AIRSPACE DISEASE. TECHNICAL DOCUMENTATION: JOB ID: [id number] [employer]- All Rights Reserved Reading location - IP/workstation name: [email or web address]
[2018-09-29] MEDS: BUDESONIDE NEB 0.5 MG/2 ML AMPUL NEB SCH ×2 (08:36→20:10)
--- NOTE | 2018-09-29 11:40 | PDOC PROGRESS REPORT ---
Subjective Progress Note for:: 09/29/18 Subjective:: Patient extubated yesterday and she tolerated the procedure. Now she is on oxygen via nasal cannula. She is awake alert oriented and fully conversant. Her vitals and blood works are stable so patient downgraded to IMCU. Reason For Visit: ACUTE RESPIRATORY FAILURE WITH HYPOXIA Physical Exam Vital Signs: Temp Pulse Resp BP Pulse Ox 98.4 F 65 12 146/97 H 97 09/29/18 08:00 09/29/18 08:36 09/29/18 08:36 09/29/18 08:00 09/29/18 08:36 Intake & Output 09/28/18 09/29/18 09/30/18 06:59 06:59 06:59 Intake Total 3955 2736 450 Output Total 4041 9530 880 Balance -94 -1034 -430 Weight 64.6 kg 61.6 kg General appearance: PRESENT: no acute distress Head exam: PRESENT: atraumatic Eye exam: PRESENT: conjunctiva pink Mouth exam: PRESENT: moist Neck exam: ABSENT: carotid bruit, JVD, lymphadenopathy, thyromegaly Respiratory exam: PRESENT: clear to auscultation maria de jesus. ABSENT: rales, rhonchi, wheezes Cardiovascular exam: PRESENT: RRR. ABSENT: diastolic murmur, rubs, systolic murmur GI/Abdominal exam: PRESENT: normal bowel sounds, soft. ABSENT: distended, guarding, mass, organolmegaly, rebound, tenderness Neurological exam: PRESENT: alert, awake, oriented to time, oriented to situation Results Laboratory Results: 09/29/18 03:47 09/29/18 03:47 09/29/18 09/29/18 09/29/18 03:47 03:47 05:00 WBC 6.6 RBC 3.89 Hgb 11.9 L Hct 34.5 L MCV 89 MCH 30.7 MCHC 34.6 RDW 13.6 Plt Count 138 L Seg Neutrophils % 61.0 Lymphocytes % 22.1 Monocytes % 8.9 Eosinophils % 7.6 H Basophils % 0.4 Absolute Neutrophils 4.0 Absolute Lymphocytes 1.5 Absolute Monocytes 0.6 Absolute Eosinophils 0.5 Absolute Basophils 0.0 Carbonic Acid 1.11 HCO3/H2CO3 Ratio 23:1 ABG pH 7.48 H ABG pCO2 36.8 ABG pO2 88.2 ABG HCO3 26.5 H ABG O2 Saturation 97.3 ABG Base Excess 3.0 FiO2 ROOM AIR Sodium 140.0 Potassium 3.7 Chloride 107 Carbon Dioxide 26 Anion Gap 7 BUN 8 Creatinine 0.41 L Est GFR ( Amer) > 60 Est GFR (Non-Af Amer) > 60 Glucose 95 Calcium 9.2 Phosphorus 3.8 Magnesium 1.8 Total Bilirubin 0.7 AST 17 ALT 13 Alkaline Phosphatase 55 Total Protein 6.2 L Albumin 3.4 L 09/23/18 19:20 Blood Blood Culture - Final NO GROWTH IN 5 DAYS 09/23/18 15:00 Blood Blood Culture - Final NO GROWTH IN 5 DAYS 09/23/18 09/23/18 09/23/18 00:39 00:39 06:40 Creatine Kinase 39 Cancelled CK-MB (CK-2) < 0.22 Troponin I < 0.012 NT-Pro-B Natriuret Pep 09/23/18 09/23/18 09/23/18 06:40 07:05 07:05 Creatine Kinase 29 L CK-MB (CK-2) Cancelled < 0.22 Troponin I Cancelled < 0.012 NT-Pro-B Natriuret Pep 09/23/18 09/23/18 09/24/18 12:36 12:36 03:45 Creatine Kinase 38 CK-MB (CK-2) 0.82 Troponin I < 0.012 NT-Pro-B Natriuret Pep 358 H Impressions: Chest/Abdomen CTA 09/23/18 01:41 IMPRESSION: Negative for pulmonary embolus. Perihilar groundglass opacities bilaterally consistent with pneumonitis TECHNICAL DOCUMENTATION: Quality ID # 436: Final reports with documentation of one or more dose reduction techniques (e.g., Automated exposure control, adjustment of the mA and/or kV according to patient size, use of iterative reconstruction technique) copyright 2011 [employer]- All Rights Reserved Head CT 09/25/18 00:00 IMPRESSION: NORMAL BRAIN CT WITHOUT CONTRAST. EVIDENCE OF ACUTE STROKE: NO. Chest X-Ray 09/29/18 06:00 IMPRESSION: SLIGHT IMPROVED AERATION IN PREVIOUSLY SEEN BILATERAL AIRSPACE DISEASE. 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 I will discontinue the Keppra and Depakote and watch her. (2) Acute respiratory failure with hypoxia Is this a current diagnosis for this admission?: Yes Plan: Status post extubation. Improving. (3) Dyspnea and respiratory abnormalities Is this a current diagnosis for this admission?: Yes Plan: Continue current regimen (4) Tobacco dependence Is this a current diagnosis for this admission?: Yes Plan: This morning I counseled and encouraged the patient to quit smoking and she voices agreement. (5) GERD (gastroesophageal reflux disease) Qualifiers: Esophagitis presence: without esophagitis Qualified Code(s): K21.9 - Gastro-esophageal reflux disease without esophagitis Is this a current diagnosis for this admission?: Yes Plan: Continue PPI.
[2018-09-29] MEDS: NICOTINE 21 MG/24 HR PATCH.TD24 TD SCH (11:42)
[2018-09-29] MEDS: VALPROATE SODIUM 500 MG in NORMAL SALINE 100 ML IV SCH ×2 (11:42→21:10)
[2018-09-29] MEDS: LEVETIRACETAM 1000 MG/NACL-ISO 1,000 MG/100 ML RTUPB IV SCH ×2 (11:43→22:31)
[2018-09-29] MEDS: DOXYCYCLINE HYCLATE 100 MG in DEXTROSE 5%-WATER 250 ML IV SCH ×2 (11:43→23:26)
[2018-09-29] MEDS: THIAMINE HCL 100 MG TABLET NG SCH (11:45)
[2018-09-29] MEDS: FOLIC ACID 1 MG TABLET NG SCH (11:45)
--- NOTE | 2018-09-29 15:59 | PDOC CONSULTATION ---
Consultation Consult Date: 09/23/18 Attending physician:: AYLEEN BONNER Consult reason:: RESP FAILURE History of Present Illness Admission Date/PCP: 09/23/18 05:05 History of Present Illness: KAVITA ALCALA is a 28 year old female, presented to the emergency room with acute shortness of breath she was given bronchodilators ketamine supplemental oxygen with no significant improvement she was subsequently intubated and is currently in the ICU abated and sedated. Per his significant other she smokes cigarettes heavily. Past Medical History Cardiac Medical History: Reports: Heart Murmur Denies: Coronary Artery Disease, Hypertension Pulmonary Medical History: Denies: Asthma, Chronic Obstructive Pulmonary Disease (COPD) EENT Medical History: Reports: None Neurological Medical History: Denies: Multiple Sclerosis, Seizures Endocrine Medical History: Denies: Diabetes Mellitus Type 1, Diabetes Mellitus Type 2 Renal/ Medical History: Denies: Chronic Kidney Disease, Nephrolithiasis Malignancy Medical History: Reports: None GI Medical History: Reports: Gastroesophageal Reflux Disease Denies: Hiatal Hernia Musculoskeltal Medical History: Denies: Arthritis, Gout Skin Medical History: Denies: Eczema, Psoriasis Psychiatric Medical History: Reports: Tobacco Dependency Denies: Alcohol Dependency, Substance Abuse Traumatic Medical History: Reports: None Hematology: Denies: Anemia, Hemophilia, Sickle Cell Disease, Bleeding Tendencies Infectious Medical History: Reports: None Denies: HIV Past Surgical History Past Surgical History: Reports: Section - x 3, Tubal Ligation Social History Information Source: Relative, [facility] Records Lives with: Family, Spouse/Significant other - Significant other Neri Smoking Status: Current Every Day Smoker Cigarettes Packs Per Day: 2 Number of Years Smokin Passive smoke exposure as: Both Frequency of Alcohol Use: None Hx Recreational Drug Use: No Drugs: None Hx Prescription Drug Abuse: No - Advance Directive Resuscitation Status: Full Code Family History Family History: CAD, CVA, DM, Hypertension, Malignancy Parental Family History Reviewed: Yes Children Family History Reviewed: Yes Sibling(s) Family History Reviewed.: Yes Medication/Allergy Home Medications: Aspirin/Acetaminophen/Caffeine [Excedrin Extra Strength Caplet] 1 each PO PRN PRN 09/23/18 Allergies/Adverse Reactions: latex [Latex] Allergy (Severe, Verified 09/12/18 11:01) swelling Review of Systems ROS unobtainable: Due to endotracheal tube Physical Exam Vital Signs: Temp Pulse Resp BP Pulse Ox 99.0 F 105 H 20 107/64 94 09/23/18 09:03 09/23/18 10:00 09/23/18 10:00 09/23/18 10:00 09/23/18 10:00 Intake & Output 09/22/18 09/23/18 09/24/18 06:59 06:59 06:59 Intake Total 269 6 Output Total 900 Balance 269 -894 Weight 60.4 kg 62.2 kg General appearance: PRESENT: no acute distress, disheveled, well-developed, well-nourished. ABSENT: cooperative Head exam: PRESENT: atraumatic Eye exam: PRESENT: conjunctiva pale. ABSENT: EOMI, nystagmus, periorbital swelling, scleral icterus Mouth exam: PRESENT: dry mucosa, neck supple, tongue midline, other - ET tube Neck exam: ABSENT: carotid bruit, full ROM, JVD, lymphadenopathy, meningismus, tenderness, thyromegaly, tracheal deviation, tracheostomy, other Respiratory exam: PRESENT: decreased breath sounds, prolonged expiratory phas, rales, rhonchi, unlabored. ABSENT: retraction, stridor Cardiovascular exam: PRESENT: RRR, +S1, +S2 Pulses: PRESENT: normal radial pulses GI/Abdominal exam: PRESENT: soft. ABSENT: tenderness Gentrourinary exam: PRESENT: indwelling catheter Extremities exam: ABSENT: calf tenderness, clubbing, joint swelling Musculoskeletal exam: ABSENT: ambulatory, deformity, dislocation Neurological exam: ABSENT: awake Skin exam: PRESENT: dry, warm Results Laboratory Results: 09/23/18 00:39 09/23/18 00:39 09/23/18 09/23/18 09/23/18 00:39 00:39 00:39 WBC 15.0 H RBC 4.81 Hgb 14.5 Hct 42.5 MCV 88 MCH 30.3 MCHC 34.2 RDW 13.8 Plt Count 147 L Seg Neutrophils % 81.6 H Lymphocytes % 9.3 L Monocytes % 6.2 Eosinophils % 2.7 Basophils % 0.2 Absolute Neutrophils 12.2 H Absolute Lymphocytes 1.4 Absolute Monocytes 0.9 Absolute Eosinophils 0.4 Absolute Basophils 0.0 Carbonic Acid HCO3/H2CO3 Ratio ABG pH ABG pCO2 ABG pO2 ABG HCO3 ABG O2 Saturation ABG Base Excess VBG pH 7.47 H VBG pCO2 27.8 L VBG HCO3 19.9 L VBG Base Excess -2.3 FiO2 Sodium 140.1 Potassium 3.7 Chloride 107 Carbon Dioxide 23 Anion Gap 10 BUN 9 Creatinine 0.43 L Est GFR ( Amer) > 60 Est GFR (Non-Af Amer) > 60 Glucose 113 H Calcium 9.6 Total Bilirubin 0.7 AST 19 ALT 20 Alkaline Phosphatase 85 Total Protein 7.9 Albumin 4.8 Serum HCG, Qual Urine Color Urine Appearance Urine pH Ur Specific [place] Urine Protein Urine Glucose (UA) Urine Ketones Urine Blood Urine Nitrite Ur Leukocyte Esterase Urine WBC (Auto) Urine RBC (Auto) 09/23/18 09/23/18 09/23/18 00:39 03:45 03:50 WBC RBC Hgb Hct MCV MCH MCHC RDW Plt Count Seg Neutrophils % Lymphocytes % Monocytes % Eosinophils % Basophils % Absolute Neutrophils Absolute Lymphocytes Absolute Monocytes Absolute Eosinophils Absolute Basophils Carbonic Acid 1.12 HCO3/H2CO3 Ratio 18:1 ABG pH 7.37 ABG pCO2 37.2 ABG pO2 119.6 H ABG HCO3 21.0 ABG O2 Saturation 98.3 H ABG Base Excess -3.7 VBG pH VBG pCO2 VBG HCO3 VBG Base Excess FiO2 50% Sodium Potassium Chloride Carbon Dioxide Anion Gap BUN Creatinine Est GFR ( Amer) Est GFR (Non-Af Amer) Glucose Calcium Total Bilirubin AST ALT Alkaline Phosphatase Total Protein Albumin Serum HCG, Qual NEGATIVE Urine Color STRAW Urine Appearance CLEAR Urine pH 6.0 Ur Specific [place] 1.059 Urine Protein NEGATIVE Urine Glucose (UA) NEGATIVE Urine Ketones 20 H Urine Blood SMALL H Urine Nitrite NEGATIVE Ur Leukocyte Esterase NEGATIVE Urine WBC (Auto) 1 Urine RBC (Auto) 1 09/23/18 09/23/18 09/23/18 00:39 00:39 06:40 Creatine Kinase 39 Cancelled CK-MB (CK-2) < 0.22 Troponin I < 0.012 09/23/18 09/23/18 09/23/18 06:40 07:05 07:05 Creatine Kinase 29 L CK-MB (CK-2) Cancelled < 0.22 Troponin I Cancelled < 0.012 Impressions: Chest/Abdomen CTA 09/23/18 01:41 IMPRESSION: Negative for pulmonary embolus. Perihilar groundglass opacities bilaterally consistent with pneumonitis TECHNICAL DOCUMENTATION: Quality ID # 436: Final reports with documentation of one or more dose reduction techniques (e.g., Automated exposure control, adjustment of the mA and/or kV according to patient size, use of iterative reconstruction technique) copyright 2011 [employer]- All Rights Reserved Chest X-Ray 09/23/18 04:02 IMPRESSION: Endotracheal tube and enteric tubes in place. No pneumothorax copyright 2010 [employer]- All Rights Reserved Assessment & Plan - Diagnosis (1) Acute respiratory failure with hypoxia Is this a current diagnosis for this admission?: Yes Plan: Ventilate and oxygenate maintain adequate pH and SaO2 (2) GERD (gastroesophageal reflux disease) Qualifiers: Esophagitis presence: without esophagitis Qualified Code(s): K21.9 - Gastro-esophageal reflux disease without esophagitis Is this a current diagnosis for this admission?: Yes Plan: PPI and H2 jennifer (3) Tobacco dependence Is this a current diagnosis for this admission?: Yes Plan: Transdermal nicotine (4) 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
[2018-09-29] MEDS ORDERED: LEVETIRACETAM 1000 MG/NACL-ISO 1,000 MG/100 ML RTUPB IV ONE (22:27)
[2018-09-30] MEDS: BUDESONIDE NEB 0.5 MG/2 ML AMPUL NEB SCH ×2 (07:51→20:46)
[2018-09-30] MEDS: LEVALBUTEROL HCL NEB 1.25 MG/3 ML AMPUL NEB SCH ×2 (07:51→15:56)
[2018-09-30] MEDS: IPRATROPIUM BROMIDE 0.02% NEB 0.5 MG/2.5 ML AMPUL NEB SCH ×2 (07:51→15:56)
[2018-09-30] MEDS: POTASSI CL 20 MEQ/D5-1/2NS 1L 1,000 ML IV PRN (08:10)
[2018-09-30] MEDS: FONDAPARINUX SODIUM INJ 2.5 MG/0.5 ML DISP.SYRIN SUBCUT SCH (08:10)
[2018-09-30] MEDS: NICOTINE 21 MG/24 HR PATCH.TD24 TD SCH (09:02)
[2018-09-30] MEDS: FOLIC ACID 1 MG TABLET NG SCH (09:03)
[2018-09-30] MEDS: DOXYCYCLINE HYCLATE 100 MG in DEXTROSE 5%-WATER 250 ML IV SCH ×2 (09:03→22:48)
[2018-09-30] MEDS: THIAMINE HCL 100 MG TABLET NG SCH (09:03)
[2018-09-30] MEDS ORDERED: ACETAMINOPHEN 325 MG TABLET PO PRN (09:43)
[2018-09-30] MEDS: LEVETIRACETAM 1000 MG/NACL-ISO 1,000 MG/100 ML RTUPB IV SCH ×2 (11:00→22:14)
[2018-09-30] MEDS: VALPROATE SODIUM 500 MG in NORMAL SALINE 100 ML IV SCH ×2 (12:32→21:10)
--- NOTE | 2018-09-30 12:56 | PDOC PROGRESS REPORT ---
Subjective Progress Note for:: 09/30/18 Subjective:: Patient is improving progressively. Physical therapy is working with her. I will take her off Depakote and Keppra and I will follow her how she responds. If she remains stable she is potential discharge for tomorrow. Reason For Visit: ACUTE RESPIRATORY FAILURE WITH HYPOXIA Physical Exam Vital Signs: Temp Pulse Resp BP Pulse Ox 97.7 F 83 17 112/70 94 09/30/18 07:21 09/30/18 07:51 09/30/18 07:51 09/30/18 07:21 09/30/18 07:51 Intake & Output 09/29/18 09/30/18 10/01/18 06:59 06:59 06:59 Intake Total 2736 3542 350 Output Total 3770 2810 400 Balance -1034 732 -50 Weight 61.6 kg General appearance: PRESENT: no acute distress, well-developed, well-nourished Head exam: PRESENT: atraumatic, normocephalic Eye exam: PRESENT: conjunctiva pink, EOMI, PERRLA. ABSENT: scleral icterus Ear exam: PRESENT: normal external ear exam Mouth exam: PRESENT: moist, tongue midline Neck exam: ABSENT: carotid bruit, JVD, lymphadenopathy, thyromegaly Respiratory exam: PRESENT: clear to auscultation maria de jesus. ABSENT: rales, rhonchi, wheezes Cardiovascular exam: PRESENT: RRR. ABSENT: diastolic murmur, rubs, systolic murmur Pulses: PRESENT: normal dorsalis pedis pul Vascular exam: PRESENT: normal capillary refill GI/Abdominal exam: PRESENT: normal bowel sounds, soft. ABSENT: distended, guarding, mass, organolmegaly, rebound, tenderness Rectal exam: PRESENT: deferred Extremities exam: PRESENT: full ROM. ABSENT: calf tenderness, clubbing, pedal edema Neurological exam: PRESENT: alert, awake, oriented to person, oriented to place, oriented to time, oriented to situation, CN II-XII grossly intact. ABSENT: motor sensory deficit Psychiatric exam: PRESENT: appropriate affect, normal mood. ABSENT: homicidal ideation, suicidal ideation Skin exam: PRESENT: dry, intact, warm. ABSENT: cyanosis, rash Results Laboratory Results: 09/29/18 03:47 09/29/18 03:47 09/27/18 16:00 Vaginal Gram Stain - Final 09/27/18 16:00 Vaginal Vaginal Culture - Final NO GROWTH 3 DAYS 09/23/18 09/23/18 09/23/18 00:39 00:39 06:40 Creatine Kinase 39 Cancelled CK-MB (CK-2) < 0.22 Troponin I < 0.012 NT-Pro-B Natriuret Pep 09/23/18 09/23/18 09/23/18 06:40 07:05 07:05 Creatine Kinase 29 L CK-MB (CK-2) Cancelled < 0.22 Troponin I Cancelled < 0.012 NT-Pro-B Natriuret Pep 09/23/18 09/23/18 09/24/18 12:36 12:36 03:45 Creatine Kinase 38 CK-MB (CK-2) 0.82 Troponin I < 0.012 NT-Pro-B Natriuret Pep 358 H Impressions: Chest/Abdomen CTA 09/23/18 01:41 IMPRESSION: Negative for pulmonary embolus. Perihilar groundglass opacities bilaterally consistent with pneumonitis TECHNICAL DOCUMENTATION: Quality ID # 436: Final reports with documentation of one or more dose reduction techniques (e.g., Automated exposure control, adjustment of the mA and/or kV according to patient size, use of iterative reconstruction technique) copyright 2011 [employer]- All Rights Reserved Head CT 09/25/18 00:00 IMPRESSION: NORMAL BRAIN CT WITHOUT CONTRAST. EVIDENCE OF ACUTE STROKE: NO. Chest X-Ray 09/29/18 06:00 IMPRESSION: SLIGHT IMPROVED AERATION IN PREVIOUSLY SEEN BILATERAL AIRSPACE DISEASE. 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 Improving. (3) Dyspnea and respiratory abnormalities Is this a current diagnosis for this admission?: Yes Plan: Continue current regimen (4) Tobacco dependence Is this a current diagnosis for this admission?: Yes Plan: This morning I counseled and encouraged the patient to quit smoking and she voices agreement. (5) GERD (gastroesophageal reflux disease) Qualifiers: Esophagitis presence: without esophagitis Qualified Code(s): K21.9 - Gastro-esophageal reflux disease without esophagitis Is this a current diagnosis for this admission?: Yes Plan: Continue PPI.
[2018-09-30] MEDS: KETOROLAC TROMETHAMINE INJ/PF 30 MG/1 ML SDV IV PRN (17:06)
[2018-10-01] MEDS: LEVALBUTEROL HCL NEB 1.25 MG/3 ML AMPUL NEB SCH ×2 (00:27→08:27)
[2018-10-01] MEDS: IPRATROPIUM BROMIDE 0.02% NEB 0.5 MG/2.5 ML AMPUL NEB SCH ×2 (00:27→08:27)
[2018-10-01] MEDS: FONDAPARINUX SODIUM INJ 2.5 MG/0.5 ML DISP.SYRIN SUBCUT SCH (07:59)
[2018-10-01] MEDS: BUDESONIDE NEB 0.5 MG/2 ML AMPUL NEB SCH (08:27)
--- NOTE | 2018-10-01 09:16 | PDOC DISCHARGE SUMMARY ---
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 Is this a current diagnosis for this admission?: Yes (2) Acute respiratory failure with hypoxia Is this a current diagnosis for this admission?: Yes (3) Dyspnea and respiratory abnormalities Is this a current diagnosis for this admission?: Yes (4) Tobacco dependence Is this a current diagnosis for this admission?: Yes (5) GERD (gastroesophageal reflux disease) Is this a current diagnosis for this admission?: Yes - Additional Information Resuscitation Status: Full Code Home Medications: Aspirin/Acetaminophen/Caffeine [Excedrin Extra Strength Caplet] 1 each PO PRN PRN 09/23/18 History of Present Illness History of Present Illness: KAVITA ALCALA is a 28 year old female who presented to the emergency room with acute dyspnea. Patient related that she developed progressive dyspnea during the day prior to her presentation and her symptoms increased to the point where she felt that her dyspnea was severe and presented to the emergency room. Her symptoms were accompanied by a nonproductive cough and progressively worsening wheezing. She denied prior similar episodes and had not identified any aggravating or ameliorating factors for her dyspnea and wheezing. In the emergency room she was found to be tachypneic and hypoxic with wheezing. She was treated with intravenous steroids as well as nebulizer treatments without improvement. She was subsequently placed on BiPAP also without improvement. She was given a dissociative dose of ketamine again without any improvement in her respiratory status. Her condition progressively declined to the point where she required intubation due to acute respiratory failure with hypoxia and physic al exhaustion due to the progressively increased work of breathing. She was subsequently admitted in the ICU for further evaluation and treatment. Hospital Course Hospital Course: This is 28 years old female patient presented to emergency department with chief complaint of progressively worsening dyspnea. Initially patient was managed with DuoNeb and steroid without improvement and later she was put on BiPAP still her shortness of breath is progressively increasing so at this time patient emergently intubated and transferred to ICU. She has been managed with Zosyn and doxycycline. Inserted a chest x-ray revealed pneumonitis the Zosyn d iscontinued and continue the doxycycline. During her stay EEG was done and interpreted by telemetry neurologist as nonconvulsive status epilepticus for which Depakote is added to her Keppra. 3 days ago patient was extubated she tolerated the procedure initially she was put on BiPAP and later on oxygen via nasal cannula. Today patient is off oxygen and her O2 saturation is 96% on room air. No more seizure activity witnessed so the Keppra and Depakote discontinued. Since patient is a heavy smoker and I counseled her and strongly advised her to quit smoking and she voices agreement. Her vitals and blood works are stable patient is good to go today. Physical Exam Vital Signs: Temp Pulse Resp BP Pulse Ox 97.5 F 69 12 114/57 L 97 10/01/18 07:15 10/01/18 07:15 10/01/18 07:15 10/01/18 07:15 10/01/18 07:15 Intake & Output 09/30/18 10/01/18 10/02/18 06:59 06:59 06:59 Intake Total 3542 1477 Output Total 2810 1100 Balance 732 377 Weight 61.1 kg General appearance: PRESENT: no acute distress, well-developed, well-nourished Head exam: PRESENT: atraumatic, normocephalic Eye exam: PRESENT: conjunctiva pink, EOMI, PERRLA. ABSENT: scleral icterus Ear exam: PRESENT: normal external ear exam Mouth exam: PRESENT: moist, tongue midline Neck exam: ABSENT: carotid bruit, JVD, lymphadenopathy, thyromegaly Respiratory exam: PRESENT: clear to auscultation maria de jesus. ABSENT: rales, rhonchi, wheezes Cardiovascular exam: PRESENT: RRR. ABSENT: diastolic murmur, rubs, systolic murmur Pulses: PRESENT: normal dorsalis pedis pul Vascular exam: PRESENT: normal capillary refill GI/Abdominal exam: PRESENT: normal bowel sounds, soft. ABSENT: distended, guarding, mass, organolmegaly, rebound, tenderness Rectal exam: PRESENT: deferred Extremities exam: PRESENT: full ROM. ABSENT: calf tenderness, clubbing, pedal edema Neurological exam: PRESENT: alert, awake, oriented to person, oriented to place, oriented to time, oriented to situation, CN II-XII grossly intact. ABSENT: motor sensory deficit Psychiatric exam: PRESENT: appropriate affect, normal mood. ABSENT: homicidal ideation, suicidal ideation Skin exam: PRESENT: dry, intact, warm. ABSENT: cyanosis, rash Results Laboratory Results: 09/29/18 03:47 09/29/18 03:47 09/27/18 16:00 Vaginal Gram Stain - Final 09/27/18 16:00 Vaginal Vaginal Culture - Final NO GROWTH 3 DAYS 09/23/18 09/23/18 09/23/18 00:39 00:39 06:40 Creatine Kinase 39 Cancelled CK-MB (CK-2) < 0.22 Troponin I < 0.012 NT-Pro-B Natriuret Pep 09/23/18 09/23/18 09/23/18 06:40 07:05 07:05 Creatine Kinase 29 L CK-MB (CK-2) Cancelled < 0.22 Troponin I Cancelled < 0.012 NT-Pro-B Natriuret Pep 09/23/18 09/23/18 09/24/18 12:36 12:36 03:45 Creatine Kinase 38 CK-MB (CK-2) 0.82 Troponin I < 0.012 NT-Pro-B Natriuret Pep 358 H Impressions: Chest/Abdomen CTA 09/23/18 01:41 IMPRESSION: Negative for pulmonary embolus. Perihilar groundglass opacities bilaterally consistent with pneumonitis TECHNICAL DOCUMENTATION: Quality ID # 436: Final reports with documentation of one or more dose reduction techniques (e.g., Automated exposure control, adjustment of the mA and/or kV according to patient size, use of iterative reconstruction technique) copyright 2011 [employer]- All Rights Reserved Head CT 09/25/18 00:00 IMPRESSION: NORMAL BRAIN CT WITHOUT CONTRAST. EVIDENCE OF ACUTE STROKE: NO. Chest X-Ray 09/29/18 06:00 IMPRESSION: SLIGHT IMPROVED AERATION IN PREVIOUSLY SEEN BILATERAL AIRSPACE DISEASE. Qualifiers - * PATIENT BEING DISCHARGED WITH ANY OF THE FOLLOWING DIAGNOSIS: No
[2018-10-01] MEDS: NICOTINE 21 MG/24 HR PATCH.TD24 TD SCH (09:50)
[2018-10-01] MEDS: THIAMINE HCL 100 MG TABLET NG SCH (09:50)
[2018-10-01] MEDS: FOLIC ACID 1 MG TABLET NG SCH (09:50)
[2018-10-01 09:54] VITALS: BP 134/87
[2018-10-01] MEDS ORDERED: DOCUSATE SODIUM 100 MG CAPSULE PO SCH (10:00)
== END 2018-10-01 10:14 | disposition home or self-care (01) | DRG 207 ==
LOC: ER 00:17 → EH 05:05 → ICU 08:19 → 3W 09-29 17:24
PROVIDERS: ADMIT Emergency Medicine; ATTEND Emergency Medicine
PROC: 5A1955Z Respiratory Ventilation, Greater than 96 Consecutive Hours (ICD-10-PCS; principal; 2018-09-23)
PROC: 0BH17EZ Insertion of Endotracheal Airway into Trachea, Via Natural or Artificial Opening (ICD-10-PCS; 2018-09-23)
DX: J96.01 Acute respiratory failure with hypoxia (principal); J69.0 Pneumonitis due to inhalation of food and vomit; F10.231 Alcohol dependence with withdrawal delirium; G40.801 Other epilepsy, not intractable, with status epilepticus; K21.0 Gastro-esophageal reflux disease with esophagitis; F17.210 Nicotine dependence, cigarettes, uncomplicated; Z98.51 Tubal ligation status; Z82.49 Family history of ischemic heart disease and other diseases of the circulatory system; Z82.3 Family history of stroke; Z83.3 Family history of diabetes mellitus; Z80.9 Family history of malignant neoplasm, unspecified; Z91.040 Latex allergy status
CPT/HCPCS: 36415; 70450; 71045; 71275; 80053; 80061; 80307; 81001; 81332; 82550; 82553; 82803; 82962; 83735; 83880; 84100; 84439; 84443; 84481; 84484; 84703; 85025; 85379; 86701; 87040; 87070; 87086; 87205; 87804; 93005; 93010; 94002; 94003; 94640; 94660; 94799; 95819; 96365; 96375; 99291; J0330; J1652; J1885; J1953; J2250; J2405; J2543; J2704; J2920; J2930; J3360; J3475; J3480; J3490; J7060; J7620; S0164

== ENCOUNTER 2018-10-20 10:27 | Emergency (ER) | payer SELFPAY ==
[2018-10-20 10:38] VITALS: BP 150/88
--- NOTE | 2018-10-20 10:44 | ER Document Report ---
ED Medical Screen (RME) - General Chief Complaint: Chest Pain Stated Complaint: CHEST PAIN Time Seen by Provider: 10/20/18 10:41 Mode of Arrival: Ambulatory Information source: Patient Notes: Patient is a 28-year-old female who presents to the emergency department with complaints of chest pain, tightness to the right side, right shoulder pain and upper chest pain. She reports increased pain with breathing. She states all symptoms started last night. Patient reports she was seen here approximately 1 month ago for a pneumothorax in which she states she was in the ICU and chest tubes. Patient reports this feels similar. Exam: Patient alert, oriented and anxious. Lung sounds present bilaterally in all lobes. *Patient will be taken straight for chest x-ray and placed into a room. I have greeted and performed a rapid initial assessment of this patient. A comprehensive ED assessment and evaluation of the patient, analysis of test results and completion of the medical decision making process will be conducted by additional ED providers. Dictation of this chart was performed using voice recognition software; therefore, there may be some unintended grammatical errors. TRAVEL OUTSIDE OF THE [place] IN LAST 30 DAYS: No - Related Data Allergies/Adverse Reactions: latex [Latex] Allergy (Severe, Verified 10/20/18 10:27) swelling Past Medical History - Social History Frequency of alcohol use: None Drug Abuse: None - Past Medical History Cardiac Medical History: Reports: Hx Heart Murmur Denies: Hx Coronary Artery Disease, Hx Hypertension Pulmonary Medical History: Denies: Hx Asthma, Hx COPD Neurological Medical History: Denies: Hx Cerebrovascular Accident, Hx Seizures Endocrine Medical History: Denies: Hx Diabetes Mellitus Type 1, Hx Diabetes Mellitus Type 2 Renal/ Medical History: Denies: Hx Peritoneal Dialysis GI Medical History: Reports: Hx Gastroesophageal Reflux Disease, Hx Ulcer - gastric hx of. Denies: Hx Hiatal Hernia Musculoskeltal Medical History: Denies Hx Arthritis, Denies Hx Gout Skin Medical History: Denies Hx Eczema, Denies Hx Psoriasis Psychiatric Medical History: Infectious Medical History: Denies: Hx HIV Past Surgical History: Reports: Hx Section - x 3, Hx Tubal Ligation - Immunizations Immunizations up to date: Yes Hx Diphtheria, Pertussis, Tetanus Vaccination: Yes - 2009 Physical Exam - Vital signs Vitals: Temp Pulse Resp BP Pulse Ox 97.6 F 79 36 H 150/88 H 100 10/20/18 10:36 10/20/18 10:36 10/20/18 10:36 10/20/18 10:36 10/20/18 10:36 Course - Vital Signs Vital signs: Temp Pulse Resp BP Pulse Ox 97.6 F 79 36 H 150/88 H 100 10/20/18 10:36 10/20/18 10:36 10/20/18 10:36 10/20/18 10:36 10/20/18 10:36
--- NOTE | 2018-10-20 11:09 | RADIOLOGY REPORT (SQ) ---
EXAM DESCRIPTION: CHEST SINGLE VIEW COMPLETED DATE/TIME: 10/20/2018 11:00 am REASON FOR STUDY: eval for pneumothorax COMPARISON: None. NUMBER OF VIEWS: One view. TECHNIQUE: Single frontal radiographic view of the chest acquired. LIMITATIONS: None. FINDINGS: LUNGS AND PLEURA: No opacities, masses or pneumothorax. No pleural effusion. MEDIASTINUM AND HILAR STRUCTURES: No masses. Contour normal. HEART AND VASCULAR STRUCTURES: Heart normal in size. Normal vasculature. BONES: No acute findings. HARDWARE: None in the chest. OTHER: No other significant finding. IMPRESSION: NO SIGNIFICANT RADIOGRAPHIC FINDING IN THE CHEST. TECHNICAL DOCUMENTATION: JOB ID: [id number] [employer]- All Rights Reserved Reading location - IP/workstation name: [email or web address]
--- NOTE | 2018-10-20 12:24 | EKG REPORT ---
SEVERITY:- NORMAL ECG - SINUS RHYTHM : Confirmed by: Aj Marks MD 20-Oct-2018 12:23:11
[2018-10-20] MEDS ORDERED: KETOROLAC TROMETHAMINE INJ/PF 30 MG/1 ML SDV IV ONE (12:33)
[2018-10-20] MEDS ORDERED: IPRATROPIUM/ALBUTEROL 0.5-2.5 MG/3 ML AMPUL NEB ONE (12:33)
--- NOTE | 2018-10-20 12:46 | ER Document Report ---
ED General - General Chief Complaint: Chest Pain Stated Complaint: CHEST PAIN Time Seen by Provider: 10/20/18 10:41 Mode of Arrival: Ambulatory Information source: Patient, [facility] Records Notes: 28-year-old female presents with complaint of shortness of breath, chest pain, back pain, pain with inspiration. Patient states symptoms started 1 day prior to arrival. She describes her pain as a tightness. Patient did have a recent hospital admission in September 2018 where she was found to be in acute respiratory failure and required intubation. Patient reports that she had a chest tube placed but I cannot find documentation of this. Patient denies any recent illness, fever, chills, cough, leg swelling. She does report that she has quit smoking since her last hospitalizations. She was diagnosed with asthma but not given any asthma medications. TRAVEL OUTSIDE OF THE [place] IN LAST 30 DAYS: No - HPI Onset: Yesterday Onset/Duration: Gradual, Persistent Quality of pain: Achy, Other - Tightness Severity: Mild Associated symptoms: Body/muscle aches, Chest pain, Hurts to breath, Shortness of breath. denies: Nonproductive cough, Productive cough, Fever, Leg swelling, Nausea Exacerbated by: Deep breathing Relieved by: Denies Similar symptoms previously: Yes Recently seen / treated by doctor: No - Related Data Allergies/Adverse Reactions: latex [Latex] Allergy (Severe, Verified 10/20/18 10:27) swelling Past Medical History - General Information source: Patient - Social History Smoking Status: Former Smoker Frequency of alcohol use: None Drug Abuse: None Lives with: Spouse/Significant other Family History: CAD, CVA, DM, Hypertension, Malignancy Patient has suicidal ideation: No Patient has homicidal ideation: No - Past Medical History Cardiac Medical History: Reports: Hx Heart Murmur Denies: Hx Coronary Artery Disease, Hx Hypertension Pulmonary Medical History: Denies: Hx Asthma, Hx COPD Neurological Medical History: Denies: Hx Cerebrovascular Accident, Hx Seizures Endocrine Medical History: Denies: Hx Diabetes Mellitus Type 1, Hx Diabetes Mellitus Type 2 Renal/ Medical History: Denies: Hx Peritoneal Dialysis GI Medical History: Reports: Hx Gastroesophageal Reflux Disease, Hx Ulcer - gastric hx of. Denies: Hx Hiatal Hernia Musculoskeletal Medical History: Denies Hx Arthritis, Denies Hx Gout Skin Medical History: Denies Hx Eczema, Denies Hx Psoriasis Psychiatric Medical History: Infectious Medical History: Denies: Hx HIV Past Surgical History: Reports: Hx Section - x 3, Hx Tubal Ligation - Immunizations Immunizations up to date: Yes Hx Diphtheria, Pertussis, Tetanus Vaccination: Yes - 2009 Review of Systems - Review of Systems Constitutional: Recent illness. denies: Fever, Weakness EENT: denies: Blurred vision, Nose congestion, Difficulty swallowing Cardiovascular: Chest pain, Dyspnea. denies: Palpitations Respiratory: Short of breath. denies: Cough Gastrointestinal: denies: Abdominal pain, Nausea, Vomiting Genitourinary: denies: Dysuria Female Genitourinary: Other Musculoskeletal: Back pain Skin: denies: Rash Hematologic/Lymphatic: No symptoms reported Neurological/Psychological: denies: Confusion, Loss of power, Headaches -: Yes All other systems reviewed and negative Physical Exam - Vital signs Vitals: Temp Pulse Resp BP Pulse Ox 97.6 F 79 36 H 150/88 H 100 10/20/18 10:36 10/20/18 10:36 10/20/18 10:36 10/20/18 10:36 10/20/18 10:36 - Notes Notes: PHYSICAL EXAMINATION: GENERAL: Well-appearing, well-nourished and in no acute distress. HEAD: Atraumatic, normocephalic. EYES: Pupils equal round and reactive to light, extraocular movements intact, conjunctiva are normal. ENT: Nares patent, oropharynx clear without exudates. Moist mucous membranes. NECK: Normal range of motion, supple without lymphadenopathy LUNGS: Breath sounds clear to auscultation bilaterally and equal. No wheezes rales or rhonchi. HEART: Regular rate and rhythm without murmurs ABDOMEN: Soft, nontender, nondistended abdomen. No guarding, no rebound. No masses appreciated. Female : deferred Musculoskeletal: Normal range of motion, no pitting or edema. No cyanosis. NEUROLOGICAL: Cranial nerves grossly intact. Normal speech, normal gait. Normal sensory, motor exams PSYCH: Normal mood, normal affect. SKIN: Warm, Dry, normal turgor, no rashes or lesions noted. Course - Re-evaluation Re-evalutation: Laboratory 10/20/18 10/20/18 11:10 14:26 D-Dimer 0.27 Urine HCG, Qual NEGATIVE Chest X-Ray 10/20/18 10:42 IMPRESSION: NO SIGNIFICANT RADIOGRAPHIC FINDING IN THE CHEST. Temp Pulse Resp BP Pulse Ox 98.3 F 79 36 H 150/88 H 100 10/20/18 14:50 10/20/18 10:36 10/20/18 10:36 10/20/18 10:36 10/20/18 10:36 28-year-old female presents with complaint of chest tightness, upper back pain and shortness of breath. Did have a recent admission for acute respiratory failure and states that she was diagnosed with asthma but was not sent home on any asthma medication. Patient does report nasal congestion, dry cough associated with the shortness of breath. Her lung exam is within normal limits. She has no wheezing, increased work of breathing, tachypnea, dyspnea, accessory muscle use. She did receive a breathing treatment and does report improvement of her shortness of breath. She states that she still has pain in her upper back. Patient was provided Toradol and Zofran. 10/20/18 14:47 Patient reevaluated. Reports improvement of pain, shortness of breath. D-dimer negative. PERC negative. Patient did receive a breathing treatment, Toradol. Patient was discharged home with an albuterol inhaler and advised to return with any concerns. Patient was evaluated and treated as appropriate for the patient's presenting symptoms and complaint, with consideration of any critical or life threatening conditions that may be associated with their obtained history and exam as noted above. All results were discussed with patient . Patient provided the opportunity to ask questions, and express concerns. Patient was educated on treatments based on their presumed diagnosis as noted above. At this time we will discharge the patient with return precautions and follow-up recommendations. Verbal discharge instructions given a the bedside. Medication warnings reviewed. Patient is in agreement with this plan and has verbalized understanding of return precautions. After careful consideration I feel that that patient can be safely discharged from the emergency department, they were advised to followup with a primary care physician in 2-3 days. Dictation on this chart was performed using voice recognition software and may result in unintended grammatical, spelling, syntax or errors. 10/21/18 12:30 - Vital Signs Vital signs: Temp Pulse Resp BP Pulse Ox 98.3 F 79 36 H 150/88 H 100 10/20/18 14:50 10/20/18 10:36 10/20/18 10:36 10/20/18 10:36 10/20/18 10:36 - Diagnostic Test Radiology reviewed: Image reviewed, Reports reviewed - EKG Interpretation by Me EKG shows normal: Sinus rhythm Rate: Normal Rhythm: NSR Discharge - Discharge Clinical Impression: Dyspnea Qualifiers: Dyspnea type: unspecified Qualified Code(s): R06.00 - Dyspnea, unspecified Back pain Qualifiers: Back pain location: thoracic back pain Chronicity: unspecified Back pain laterality: bilateral Qualified Code(s): M54.6 - Pain in thoracic spine Chest pain Qualifiers: Chest pain type: chest pain on breathing Qualified Code(s): R07.1 - Chest pain on breathing Condition: Good Disposition: HOME, SELF-CARE Instructions: Chest Pain of Unclear Cause ([facility]), Dyspnea, Nonspecific ([facility]) Additional Instructions: Follow up with your [id number] hours for further care or return to the ED IMMEDIATELY if symptoms worsen or you have any concerns. If you cannot afford to follow up with your primary care physician a list of low cost clinics have been provided at the end of your discharge papers as well. Most prescribed medications have multiple side effects. The safest thing to do is when filling your prescription speak to your pharmacist regarding possible interactions with your normal home medications and over the counter medications such as Ibuprofen, Tylenol, Benadryl. If you experience any symptoms that cause you discomfort or concern you should discontinue the medication immediately and return to the emergency room or call your primary care physician. Forms: Elevated Blood Pressure
[2018-10-20] MEDS ORDERED: MORPHINE SULFATE 10 MG/ML INJ IV ONE (14:47)
[2018-10-20] MEDS ORDERED: ONDANSETRON HCL INJ/PF 4 MG/2 ML SDV IV ONE (14:47)
[2018-10-20] MEDS ORDERED: ALBUTEROL SULFATE HFA (90 MCG/PUFF) 8 GM MDI (1 MDI/ER DISP) IH PRN (14:48)
[2018-10-20] MEDS ORDERED: ONDANSETRON 4 MG TAB.RAPDIS PO ONE (15:16)
[2018-10-20] MEDS ORDERED: OXYCODONE-ACETAMINOPHEN 5-325 MG TABLET PO ONE (15:16)
== END 2018-10-20 15:25 | disposition home or self-care (01) ==
LOC: ER 10:27
DX: R07.1 Chest pain on breathing (principal); R06.00 Dyspnea, unspecified; M54.6 Pain in thoracic spine; R07.9 Chest pain, unspecified; M54.9 Dorsalgia, unspecified; M79.10 Myalgia, unspecified site; Z87.891 Personal history of nicotine dependence
CPT/HCPCS: 93005; 94640; 99284; 96374; 36415; 81025; 85379; 71045; 93010; S0119; J1885; J3490; J7620

== ENCOUNTER 2019-03-29 01:32 | Emergency (ER) | payer MEDICAID ==
--- NOTE | 2019-03-29 02:08 | ER Document Report ---
ED Respiratory Problem - General Chief Complaint: Breathing Difficulty Stated Complaint: TROUBLE BREATHING Time Seen by Provider: 03/29/19 02:00 Primary Care Provider: BETO HERNANDEZ MD [Primary Care Provider] - Follow up as needed Notes: Patient is a 28-year-old female that comes to the emergency department for chief complaint of sensation of a pin pressing into the right side of her chest, she states that if she holds her breath feels like it improves, she states that every time she breathes it hurts, she states she feels like she cannot catch her breath. She states that she does smoke, she is not diagnosed with asthma or COPD, she states that previously she ended up intubated for difficulty breathing. The specific of this are confusing however. She also reports history of epilepsy but she is not on medications for this. She denies seizure activity. TRAVEL OUTSIDE OF THE [place] IN LAST 30 DAYS: No - Related Data Allergies/Adverse Reactions: latex [Latex] Allergy (Severe, Verified 03/29/19 01:35) swelling Past Medical History - General Information source: Patient - Social History Smoking Status: Current Every Day Smoker Smoking Education Provided: Yes - <3 min Frequency of alcohol use: None Lives with: Spouse/Significant other Family History: CAD, CVA, DM, Hypertension, Malignancy - Past Medical History Cardiac Medical History: Reports: Hx Heart Murmur Denies: Hx Coronary Artery Disease, Hx Hypertension Pulmonary Medical History: Denies: Hx Asthma, Hx COPD Neurological Medical History: Denies: Hx Cerebrovascular Accident, Hx Seizures Endocrine Medical History: Denies: Hx Diabetes Mellitus Type 1, Hx Diabetes Mellitus Type 2 Renal/ Medical History: Denies: Hx Peritoneal Dialysis GI Medical History: Reports: Hx Gastroesophageal Reflux Disease, Hx Ulcer - gastric hx of. Denies: Hx Hiatal Hernia Musculoskeletal Medical History: Denies Hx Arthritis, Denies Hx Gout Skin Medical History: Denies Hx Eczema, Denies Hx Psoriasis Psychiatric Medical History: Infectious Medical History: Denies: Hx HIV Past Surgical History: Reports: Hx Section - x 3, Hx Tubal Ligation - Immunizations Immunizations up to date: Yes Hx Diphtheria, Pertussis, Tetanus Vaccination: Yes - 2009 Review of Systems - Review of Systems Constitutional: No symptoms reported EENT: No symptoms reported Cardiovascular: See HPI Respiratory: See HPI Gastrointestinal: No symptoms reported Genitourinary: No symptoms reported Female Genitourinary: No symptoms reported Musculoskeletal: No symptoms reported Skin: No symptoms reported Hematologic/Lymphatic: No symptoms reported Neurological/Psychological: No symptoms reported Physical Exam - Vital signs Vitals: Temp Pulse Resp BP Pulse Ox 98.5 F 74 18 141/85 H 99 03/29/19 01:51 03/29/19 01:51 03/29/19 01:51 03/29/19 01:51 03/29/19 01:51 - Notes Notes: GENERAL: Alert, wide-eyed, slightly tachypneic, appears anxious HEAD: Normocephalic, atraumatic. EYES: Pupils equal, round, and reactive to light. Extraocular movements intact. ENT: Oral mucosa moist, tongue midline. Oropharynx unremarkable. Airway patent. NECK: Full range of motion. Supple. Trachea midline. LUNGS: Lungs are clear bilaterally, patient with tachypnea, patient with tenderness which is specific and reproducible over the right side of the chest with movement and palpation. No erythema, induration, fluctuance, or crepitus. HEART: Regular rate and rhythm. No murmur ABDOMEN: Soft, non-tender. Non-distended. EXTREMITIES: Moves all 4 extremities spontaneously. No edema, normal radial and dorsalis pedis pulses bilaterally. No cyanosis. BACK: no cervical, thoracic, lumbar midline tenderness. No saddle anesthesia, normal distal neurovascular exam. Moves all extremities in full range of motion. NEUROLOGICAL: Alert and oriented x3. Normal speech. Cranial nerves II through XII grossly intact. PSYCH: Anxious and difficult to calm down SKIN: Warm, dry, normal turgor. No rashes or lesions noted. Course - Re-evaluation Re-evalutation: Patient began to become anxious and more tachypneic when talking about her symptoms, she does have right-sided chest pain on palpation, however when she talks she begins to have increased tachypnea and reports it is hard to breathe. Performing x-ray, placing on the monitor, oxygen saturation unremarkable. Chest x-ray performed and unremarkable. EKG unremarkable. CBC, chemistry unremarkable, test negative. I did report her results, after this patient calm down. Tachypnea actually completely resolved. She still reports some right-sided chest pain, this is still reproducible. She states pain is worse with a deep breath and that is why she felt like she had to breathe shorter and more rapidly. Possible pleurisy component, nonspecific. Because she has no lower extremity swelling, history of PE, recent travel or surgery, tachycardia, or hypoxia, I still have a low suspicion of pulmonary embolism. Appears to be an anxiety component as well. I did provide with muscle relaxer here for home, discussed treatments, provided with dexamethasone for possible pleurisy, discussed return precautions. Patient smiling and pleasant, states full agreement and satisfaction with this plan at this time. Stable at time of discharge with no tachypnea or abnormal symptoms noted. - Vital Signs Vital signs: Temp Pulse Resp BP Pulse Ox 97.2 F 65 17 116/77 94 03/29/19 03:41 03/29/19 03:41 03/29/19 03:41 03/29/19 03:41 03/29/19 03:01 - Laboratory Result Diagrams: 03/29/19 02:30 03/29/19 02:30 Laboratory results interpreted by me: 03/29/19 03/29/19 02:30 02:30 Plt Count 129 L Carbon Dioxide 21 L Discharge - Discharge Clinical Impression: Right-sided chest pain, Shortness of breath Condition: Stable Disposition: HOME, SELF-CARE Additional Instructions: Your work-up and evaluation indicates inflammation of the chest wall and possible pleurisy as we discussed. You have been treated for this, symptoms should gradually resolve. If needed take [id number] anti-inflammatories, take the muscle relaxer especially to sleep. He can apply heat over the area. Stop smoking. Follow-up with primary care. Return if you worsen including fever, difficulty breathing, passing out, severe worsening pain, or any other concerning or worsening symptoms. Prescriptions: Cyclobenzaprine HCl [Flexeril 5 mg Tablet] 1 - 2 tab PO TID PRN #15 tablet PRN Reason: Forms: Return to Work Referrals: BETO HERNANDEZ MD [Primary Care Provider] - Follow up as needed
[2019-03-29 02:38] LABS: ABSOLUTE BASOPHILS # (AUTO) 0.1 10^3/uL (0.0-0.2); ABSOLUTE EOSINOPHILS # (AUTO) 0.2 10^3/uL (0.0-0.6); ABSOLUTE LYMPHOCYTES (AUTO) 2.9 10^3/uL (0.5-4.7); ABSOLUTE MONOCYTES (AUTO) 0.7 10^3/uL (0.1-1.4); ABSOLUTE NEUT (AUTO) 5.5 10^3/uL (1.7-8.2); BASOPHILS % (AUTO) 0.6 % (0-2); EOSINOPHILS % (AUTO) 2.4 % (0-6); HEMATOCRIT 40.6 % (36.0-47.0); HEMOGLOBIN 13.8 g/dL (12.0-15.5); LYMPHOCYTES % (AUTO) 31.1 % (13-45); MEAN CORPUSCULAR HEMOGLOBIN 30.5 pg (27.0-33.4); MEAN CORPUSCULAR VOLUME 90 fl (80-97); MONOCYTES % (AUTO) 7.6 % (3-13); PLATELET COUNT 129 10^3/uL (150-450); RED BLOOD COUNT 4.52 10^6/uL (3.72-5.28); RED CELL DISTRIBUTION WIDTH 13.2 % (11.5-14.0); SEGMENTED NEUTROPHILS % (AUTO) 58.3 % (42-78); TOTAL CELLS COUNTED % (AUTO) 100 %; WHITE BLOOD COUNT 9.4 10^3/uL (4.0-10.5)
[2019-03-29 02:51] LABS: ANION GAP 12 (5-19); BLOOD UREA NITROGEN 15 mg/dL (7-20); CALCIUM 9.5 mg/dL (8.4-10.2); CARBON DIOXIDE 21 mmol/L (22-30); CHLORIDE 107 mmol/L (98-107); GLUCOSE 88 mg/dL (75-110)
[2019-03-29] MEDS ORDERED: DEXAMETHASONE SOD PHOS INJ 10 MG/1 ML VIAL IV ONE (03:20)
[2019-03-29] MEDS ORDERED: DIAZEPAM 5 MG TABLET PO ONE (03:20)
--- NOTE | 2019-03-29 03:24 | RADIOLOGY REPORT (SQ) ---
XR CHEST 2 VIEWS EXAM DATE: 03/29/2019 2:05 AM CDT HISTORY: Shortness of breath, right-sided chest pain. COMPARISON: None. FINDINGS: The heart size is within normal limits. No consolidation, pleural effusion, or pneumothorax is seen. The bony thorax is intact. IMPRESSION: No evidence of acute cardiopulmonary disease.
[2019-03-29 03:43] VITALS: BP 116/77
--- NOTE | 2019-03-29 09:27 | EKG REPORT ---
SEVERITY:- OTHERWISE NORMAL ECG - SINUS BRADYCARDIA : Confirmed by: Marybel Loomis MD 29-Mar-2019 09:26:00
== END 2019-03-29 03:41 | disposition home or self-care (01) ==
LOC: ER 01:32
DX: R07.9 Chest pain, unspecified (principal); R06.02 Shortness of breath; F17.200 Nicotine dependence, unspecified, uncomplicated; G40.909 Epilepsy, unspecified, not intractable, without status epilepticus
CPT/HCPCS: 93005; 99284; 96374; 36415; 84703; 85025; 80048; 71046; 93010; J3490; J1100

== ENCOUNTER 2019-04-22 07:20 | Emergency (ER) | payer MEDICAID ==
[2019-04-22] MEDS ORDERED: ACETAMINOPHEN 325 MG TABLET PO ONE (09:41)
--- NOTE | 2019-04-22 10:31 | RADIOLOGY REPORT (SQ) ---
EXAM DESCRIPTION: CT HEAD WITHOUT COMPLETED DATE/TIME: 04/22/2019 10:06 am REASON FOR STUDY: Patient fell and hit left head, Hx seizures COMPARISON: 09/25/2018. TECHNIQUE: Axial images acquired through the brain without intravenous contrast. Images reviewed wi th bone, brain and subdural windows. Additional sagittal and coronal reconstructions were generated. Images stored on PACS. All CT scanners at this facility use dose modulation, iterative reconstruction, and/or weight based d osing when appropriate to reduce radiation dose to as low as reasonably achievable (ALARA). [facility]: Dose Right [facility]: CareDose [facility]: Dose Right [facility]: Teradose 4D [facility]: Smart Ufora RADIATION DOSE: CT Rad equipment meets quality standard of care and radiation dose reduction techniq ues were employed. CTDIvol: 53.2 mGy. DLP: 937 mGy-cm. mGy. LIMITATIONS: None. FINDINGS: VENTRICLES: Normal size and contour. CEREBRUM: No masses. No hemorrhage. No midline shift. No evidence for acute infarction. Normal gra y/white matter differentiation. No areas of low density in the white matter. CEREBELLUM: No masses. No hemorrhage. No alteration of density. No evidence for acute infarction. EXTRAAXIAL SPACES: No fluid collections. No masses. ORBITS AND GLOBE: No intra- or extraconal masses. Normal contour of globe without masses. CALVARIUM: No fracture. PARANASAL SINUSES: No fluid or mucosal thickening. SOFT TISSUES: No mass or hematoma. OTHER: No other significant finding. IMPRESSION: NORMAL BRAIN CT WITHOUT CONTRAST. EVIDENCE OF ACUTE STROKE: NO. COMMENT: Quality ID # [id number]: Final reports with documentation of one or more dose reduction techniques (e.g., Automated exposure control, adjustment of the mA and/or kV according to patient size, use of iterative reconstruction technique) TECHNICAL DOCUMENTATION: JOB ID: [id number] [employer]- All Rights Reserved Reading location - IP/workstation name: [email or web address]
[2019-04-22 10:39] LABS: ABSOLUTE EOSINOPHILS # (AUTO) 0.2 10^3/uL (0.0-0.6); ABSOLUTE LYMPHOCYTES (AUTO) 2.8 10^3/uL (0.5-4.7); ABSOLUTE MONOCYTES (AUTO) 0.7 10^3/uL (0.1-1.4); ABSOLUTE NEUT (AUTO) 3.9 10^3/uL (1.7-8.2); BASOPHILS % (AUTO) 0.6 % (0-2); EOSINOPHILS % (AUTO) 3.2 % (0-6); HEMATOCRIT 39.7 % (36.0-47.0); HEMOGLOBIN 13.2 g/dL (12.0-15.5); LYMPHOCYTES % (AUTO) 36.6 % (13-45); MEAN CORPUSCULAR HEMOGLOBIN 30.1 pg (27.0-33.4); MEAN CORPUSCULAR HGB CONC 33.3 g/dL (32.0-36.0); MEAN CORPUSCULAR VOLUME 90 fl (80-97); MONOCYTES % (AUTO) 8.9 % (3-13); PLATELET COUNT 109 10^3/uL (150-450); RED BLOOD COUNT 4.39 10^6/uL (3.72-5.28); RED CELL DISTRIBUTION WIDTH 13.4 % (11.5-14.0); SEGMENTED NEUTROPHILS % (AUTO) 50.7 % (42-78); TOTAL CELLS COUNTED % (AUTO) 100 %; WHITE BLOOD COUNT 7.7 10^3/uL (4.0-10.5)
[2019-04-22 11:27] LABS: ALBUMIN 3.7 g/dL (3.5-5.0); ALKALINE PHOSPHATASE 56 U/L (38-126); ANION GAP 8 (5-19); ASPARTATE AMINO TRANSFERASE 14 U/L (14-36); BILIRUBIN,DIRECT 0.1 mg/dL (0.0-0.4); BILIRUBIN,TOTAL 0.2 mg/dL (0.2-1.3); BLOOD UREA NITROGEN 15 mg/dL (7-20); CALCIUM 8.8 mg/dL (8.4-10.2); CARBON DIOXIDE 23 mmol/L (22-30); CHLORIDE 108 mmol/L (98-107); GLUCOSE 75 mg/dL (75-110); POTASSIUM 3.8 mmol/L (3.6-5.0); TOTAL PROTEIN 6.1 g/dL (6.3-8.2)
--- NOTE | 2019-04-22 12:26 | ER Document Report ---
ED Seizure - General Chief Complaint: Head Injury Stated Complaint: HEAD INJURY, BLURRED VISION Time Seen by Provider: 04/22/19 09:13 Primary Care Provider: BETO HERNANDEZ MD [Primary Care Provider] - Follow up as needed Notes: Patient thinks she had a seizure. She was hospitalized at this hospital this past spring due to the pneumonia and a collapsed lung and on a ventilator for a couple of weeks. She says that she does not remember anything but was told that she had several seizures while on the ventilator. Subsequently, she has been seeing a local practitioner who has ordered MRI studies and told her that one side of her brain was larger than the other side. 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 She is scheduled to see a neurologist here in town on Wednesday. She thinks that she had 2 seizures, both times she had different colors in her vision and spots and then fell and hit her head. Is complaining of pain to the left frontal scalp. Does not have any hematomas th ere. Denies any neck pain. Patient says that she has had daily headaches for 3 years. Does not take prescription medications. Has not had any recent illness or fever. Patient is not on any medications for seizures. - Related Data Allergies/Adverse Reactions: latex [Latex] Allergy (Severe, Verified 04/22/19 07:27) swelling Past Medical History - Social History Smoking Status: Current Every Day Smoker Family History: Reviewed & Not Pertinent, CAD, CVA, DM, Hypertension, Malignancy Patient has suicidal ideation: No Patient has homicidal ideation: No - Past Medical History Cardiac Medical History: Reports: Hx Heart Murmur Neurological Medical History: Reports: Hx Seizures GI Medical History: Reports: Hx Gastroesophageal Reflux Disease, Hx Ulcer - gastric hx of Psychiatric Medical History: Past Surgical History: Reports: Hx Section - x 3, Hx Tubal Ligation - Immunizations Immunizations up to date: Yes Hx Diphtheria, Pertussis, Tetanus Vaccination: Yes - 2009 Review of Systems - Review of Systems Notes: CONSTITUTIONAL : Denies fever. CARDIOVASCULAR: Denies chest pain. RESPIRATORY: Denies cough, chest congestion, or shortness of breath. GASTROINTESTINAL: Denies abdominal pain or nausea, vomiting, or diarrhea. GENITOURINARY: Denies difficulty or painful urinating, urinary frequency, blood in urine. Neuro: No deficits. Headache daily for the past 3 years. Physical Exam - Vital signs Vitals: Temp Pulse Resp BP Pulse Ox 97.8 F 73 18 145/82 H 100 04/22/19 07:23 04/22/19 07:23 04/22/19 07:23 04/22/19 07:23 04/22/19 07:23 Interpretation: Normal. No: Febrile Notes: PHYSICAL EXAMINATION: GENERAL: Well-appearing, no acute distress. HEAD: Tender left frontal scalp, but otherwise atraumatic, normocephalic. Tongue not injured. NECK: Normal range of motion, supple. LUNGS: Breath sounds clear and equal bilaterally. HEART: Regular rate and rhythm without murmurs heard. ABDOMEN: Soft, nontender. No guarding or rebound or masses felt. Course - Vital Signs Vital signs: Temp Pulse Resp BP Pulse Ox 97.9 F 77 16 95/50 L 97 04/22/19 12:33 04/22/19 12:33 04/22/19 12:33 04/22/19 12:33 04/22/19 12:33 - Laboratory Result Diagrams: 04/22/19 10:20 04/22/19 10:20 Laboratory results interpreted by me: 04/22/19 04/22/19 10:20 10:20 Plt Count 109 L Chloride 108 H Total Protein 6.1 L - Diagnostic Test Radiology reviewed: Image reviewed, Reports reviewed - CT Head normal Discharge - Discharge Clinical Impression: Contusion of head, Seizure Condition: Stable Disposition: HOME, SELF-CARE Additional Instructions: Seizure You have probably had a seizure. Seizure disorders (epilepsy) of one sort or another affect about one out of 50 people. The seizure occurs because of abnormal electrical activity in the brain. Seizures may be due to drugs and alcohol, strokes, brain injury, or infection. In the most common form of epilepsy, no cause can be found. You will require further evaluation to determine the cause of your seizure, and to determine whether anti-seizure medication is required. This follow-up testing is important, so please call us if you encounter problems with scheduling of te sts or appointments. YOU SHOULD NOT DRIVE until released to do so by your physician. The law re quires that seizures be reported to the otr owner operator truck driver's license bureau--a seizure while driving could be catastrophic. Call the doctor if seizures recur, or if you develop new symptoms such as fever, severe headache, stiff neck, confusion or increasing sleepiness, weakness or numbness, or visual problems. HEAD INJURY PRECAUTIONS: At this point, there is no evidence that your head injury is serious. Observation is necessary, however. Take only clear liquids for the first few hours, unless told otherwise by the doctor. If no pain medication was prescribed, you may take acetaminophen according to the directions on the bottle. Do not take any medication that may alter your level of alertness (unless you've discussed it with the doctor first). Limit activity for the first 24 hours. Bed rest is best. During the first 24 hours, check to see approximately every two to three hours that the patient is easily arousable, responds normally, and can perform common tasks such as walking without difficulty. Contact your doctor or go to the hospital if any of the following things occur: Persistent vomiting, difficulty in arousing the patient, worsening or continued headache, or failure to improve as expected. Head injuries can cause symptoms that persist for a few days or even a few weeks. NECK INJURY (CERVICAL STRAIN): You may have some have a neck strain. This is an injury to the muscles and ligaments in the neck. There is no evidence of a fracture of the neck bones. Also, no injury to the spinal cord or nerve roots was detected. Usually, stiffness and pain INCREASE for the first 24-48 hours after the injury. The pain will gradually resolve and the neck will become more mobile. Most patients are back at work or school within a few days. Typically, complete healing takes about two or three weeks. The usual initial treatment is rest and cold packs. A neck collar may be placed to keep the muscles of the neck at rest. Antiinflammatory and muscle relaxing medication are often used to reduce the spasm and irritation. You should call the doctor, or go to the hospital, if you develop numbness or weakness in any extremity, problems with your bladder or bowel, or pain radiating down the arms. CONTUSION: Your injury has resulted in a contusion -- a crushing of the deep tissues. No injury to important structures was detected during the physician's exam. Contusions vary in the amount of pain they cause, and in the length of time required for healing. Typically, the area will become bruised, and will remain painful to touch for two or three weeks. However, most patients are back to working and playing within a few days. After the initial period of rest and cold-packs, your symptoms (together with the doctor's recommendations) will determine how rapidly you can get back to full activity. Usually this means "do what feels okay, but don't do things that hurt." If re-examination was recommended, it's important to follow up as instructed. Call the doctor or return any time if pain increases, if swelling becomes severe, if you develop numbness or weakness in an injured extremity, or if any other alarming symptoms occur. NORMAL EXAM AND WORKUP: At this time, your examination and workup show no significant abnormality. No significant abnormal physical findings were noted. All laboratory, EKG, and imaging (x-ray, CT scans, ultrasound) studies that were ordered show no significant abnormality. Although your examination and all studies that were ordered showed no significant abnormal finding, there are no examinations and no studies that are 100% accurate. There is always the possibility that some abnormality could exist and not be detected with physical examination or within the limits and capabilities of laboratory and other studies. You should return or follow up as you were instructed on your visit today for further evaluation if your symptoms do not resolve. USE OF TYLENOL (ACETAMINOPHEN): Acetaminophen may be taken for pain relief or fever control. It's much safer than aspirin, offering a wider range of "safe" dosages. It is safe during . Some brand names are Tylenol, Panadol, Datril, Anacin 3, Tempra, and Liquiprin. Acetaminophen can be repeated every four hours. The following are maximum recommended dosages: WEIGHT Dose Drops Elixir Chewable(80mg) (LBS.) drprs=droppers tsp=teaspoon >89 pounds or adults 650 mg to 900 mg Acetaminophen can be repeated every four hours. Maximum dose not to exceed 4000 mg a day. These maximum recommended dosages are slightly higher than the dosages written on the product container, but these dosages are very safe and below the toxic dosage for acetaminophen. Your lab evaluation and your CT scan were both normal. Follow-up with your neurologist as scheduled on Wednesday. FOLLOW-UP CARE: If you have been referred to a physician for follow-up care, call the physicians office for an appointment as you were instructed or within the next two days. If you experience worsening or a significant change in your symptoms, notify the physician immediately or return to the Emergency Department at any time for re-evaluation. Forms: Return to Work Referrals: EPPERLY,BETO T, MD [Primary Care Provider] - Follow up as needed
[2019-04-22 12:37] VITALS: BP 95/50
== END 2019-04-22 12:42 | disposition home or self-care (01) ==
LOC: ER 07:20
DX: S00.93XA Contusion of unspecified part of head, initial encounter (principal); W19.XXXA Unspecified fall, initial encounter; Y93.89 Activity, other specified; R51 Headache; R56.9 Unspecified convulsions; Z91.040 Latex allergy status; F17.200 Nicotine dependence, unspecified, uncomplicated
CPT/HCPCS: 99284; 36415; 83735; 85025; 80053; 70450; J3490

== ENCOUNTER 2019-07-01 13:03 | Emergency (ER) | payer MEDICAID ==
[2019-07-01] MEDS ORDERED: NORMAL SALINE 1000 ML 1,000 ML IV ONE ×2 (13:55→17:00)
[2019-07-01] MEDS ORDERED: FENTANYL CITRATE INJ/PF 100 MCG/2 ML AMPUL IV ONE ×2 (13:55→17:00)
--- NOTE | 2019-07-01 13:57 | ER Document Report ---
ED Medical Screen (RME) - General Chief Complaint: Flank Pain Stated Complaint: RIGHT SIDE PAIN Time Seen by Provider: 07/01/19 13:46 Primary Care Provider: BETO HERNANDEZ MD [Primary Care Provider] - Follow up as needed Notes: Patient is a 29-year-old female who presents to the emergency department with a chief complaint of abdominal pain. Patient states that her symptoms started 2 days ago. She denies any fever, body aches, or any chills. States that the pain is in her right lower quadrant and right upper quadrant. Patient states that she is unable to eat. Denies any nausea, vomiting, or diarrhea. No previous abdominal surgeries. Denies any vaginal discharge. Exam: Very tender right lower quadrant abdomen. TRAVEL OUTSIDE OF THE [place] IN LAST 30 DAYS: No - Related Data Allergies/Adverse Reactions: latex [Latex] Allergy (Severe, Verified 07/01/19 13:38) swelling Past Medical History - Social History Chew tobacco use (# tins/day): No Frequency of alcohol use: None Drug Abuse: None - Past Medical History Cardiac Medical History: Reports: Hx Heart Murmur Denies: Hx Coronary Artery Disease, Hx Hypertension Pulmonary Medical History: Denies: Hx Asthma, Hx COPD Neurological Medical History: Reports: Hx Seizures. Denies: Hx Cerebrovascular Accident Endocrine Medical History: Denies: Hx Diabetes Mellitus Type 1, Hx Diabetes Mellitus Type 2 Renal/ Medical History: Denies: Hx Peritoneal Dialysis GI Medical History: Reports: Hx Gastroesophageal Reflux Disease, Hx Ulcer - gastric hx of. Denies: Hx Hiatal Hernia Musculoskeltal Medical History: Denies Hx Arthritis, Denies Hx Gout Skin Medical History: Denies Hx Eczema, Denies Hx Psoriasis Psychiatric Medical History: Infectious Medical History: Denies: Hx HIV Past Surgical History: Reports: Hx Section - x 3, Hx Tubal Ligation - Immunizations Immunizations up to date: Yes Hx Diphtheria, Pertussis, Tetanus Vaccination: Yes - 2009 Physical Exam - Vital signs Vitals: Temp Pulse Resp BP Pulse Ox 98.3 F 79 18 143/78 H 98 07/01/19 13:15 07/01/19 13:15 07/01/19 13:15 07/01/19 13:15 07/01/19 13:15 Course - Vital Signs Vital signs: Temp Pulse Resp BP Pulse Ox 98.3 F 79 18 143/78 H 98 12/14/19 13:39 07/01/19 13:39 07/01/19 13:39 07/01/19 13:39 07/01/19 13:39 Doctor's Discharge - Discharge Referrals: BETO HERNANDEZ MD [Primary Care Provider] - Follow up as needed
[2019-07-01 14:21] LABS: ABSOLUTE EOSINOPHILS # (AUTO) 0.2 10^3/uL (0.0-0.6); ABSOLUTE LYMPHOCYTES (AUTO) 2.6 10^3/uL (0.5-4.7); ABSOLUTE MONOCYTES (AUTO) 0.8 10^3/uL (0.1-1.4); ABSOLUTE NEUT (AUTO) 5.2 10^3/uL (1.7-8.2); BASOPHILS % (AUTO) 0.4 % (0-2); EOSINOPHILS % (AUTO) 2.4 % (0-6); HEMATOCRIT 42.9 % (36.0-47.0); HEMOGLOBIN 14.5 g/dL (12.0-15.5); LYMPHOCYTES % (AUTO) 29.2 % (13-45); MEAN CORPUSCULAR HEMOGLOBIN 30.9 pg (27.0-33.4); MEAN CORPUSCULAR HGB CONC 33.9 g/dL (32.0-36.0); MEAN CORPUSCULAR VOLUME 91 fl (80-97); PLATELET COUNT 126 10^3/uL (150-450); RED CELL DISTRIBUTION WIDTH 13.2 % (11.5-14.0); TOTAL CELLS COUNTED % (AUTO) 100 %; WHITE BLOOD COUNT 8.8 10^3/uL (4.0-10.5)
[2019-07-01 14:38] LABS: ALBUMIN 4.5 g/dL (3.5-5.0); ALKALINE PHOSPHATASE 60 U/L (38-126); ASPARTATE AMINO TRANSFERASE 19 U/L (14-36); BILIRUBIN,TOTAL 0.8 mg/dL (0.2-1.3); BLOOD UREA NITROGEN 12 mg/dL (7-20); CALCIUM 9.8 mg/dL (8.4-10.2); CARBON DIOXIDE 26 mmol/L (22-30); CHLORIDE 105 mmol/L (98-107); GLUCOSE 84 mg/dL (75-110); POTASSIUM 4.3 mmol/L (3.6-5.0); TOTAL PROTEIN 7.5 g/dL (6.3-8.2)
[2019-07-01 14:39] LABS: APPEARANCE,URINE SLIGHTLY-CLOUDY; BILIRUBIN,URINE NEGATIVE (NEGATIVE); COLOR,URINE YELLOW; GLUCOSE, URINE NEGATIVE (NEGATIVE); KETONES,URINE NEGATIVE (NEGATIVE); LEUKOCYTE ESTERASE,URINE TRACE (NEGATIVE); NITRITE,URINE NEGATIVE (NEGATIVE); PROTEIN,URINE NEGATIVE (NEGATIVE); URINE SPECIFIC GRAVITY 1.035
[2019-07-01 14:40] LABS: ANION GAP 10 (5-19)
--- NOTE | 2019-07-01 17:07 | RADIOLOGY REPORT (SQ) ---
EXAM DESCRIPTION: CT ABD/PELVIS WITH IV ONLY COMPLETED DATE/TIME: 07/01/2019 4:52 pm REASON FOR STUDY: RLQ abd pain COMPARISON: 12/03/2017 TECHNIQUE: CT scan of the abdomen and pelvis performed using helical scanning technique with dynamic intravenous contrast injection. No oral contrast. Images reviewed with lung, soft tissue, and bone windows. Reconstructed coronal and sagittal MPR images reviewed. Delayed images for evaluation of the urinary system also acquired. All images stored on PACS. All CT scanners at this facility use dose modulation, iterative reconstruction, and/or weight based d osing when appropriate to reduce radiation dose to as low as reasonably achievable (ALARA). [facility]: Dose Right [facility]: CareDose [facility]: Dose Right [facility]: Teradose 4D [facility]: Qual Canal CONTRAST TYPE AND DOSE: contrast/concentration: Isovue 350.00 mg/ml; Total Contrast Delivered: 74.0 ml; Total Saline Delivered: 67.0 ml RENAL FUNCTION: BUN 12; creatinine 0.63 RADIATION DOSE: CT Rad equipment meets quality standard of care and radiation dose reduction techniq ues were employed. CTDIvol: 5.6 - 7.5 mGy. DLP: 640 mGy-cm.. LIMITATIONS: None. FINDINGS: LOWER CHEST: 2 5 mm subpleural pulmonary nodules are seen within the left lower lobe. No pleural effusions. No acute findings. LIVER: Normal size. No masses. No dilated ducts. SPLEEN: Normal size. No focal lesions. PANCREAS: No masses. No significant calcifications. No adjacent inflammation or peripancreatic fluid collections. Pancreatic duct not dilated. GALLBLADDER: No identified stones by CT criteria. No inflammatory changes to suggest cholecystitis. ADRENAL GLANDS: No significant masses or asymmetry. RIGHT KIDNEY AND URETER: No solid masses. No significant calcifications. No hydronephrosis or hyd roureter. LEFT KIDNEY AND URETER: No solid masses. No significant calcifications. No hydronephrosis or hydr oureter. AORTA AND VESSELS: No aneurysm. No dissection. Renal arteries, SMA, celiac without stenosis. RETROPERITONEUM: No retroperitoneal adenopathy, hemorrhage or masses. BOWEL AND PERITONEAL CAVITY: No masses or inflammatory changes. No free fluid or peritoneal masses. APPENDIX: Normal. PELVIS: No mass. No free fluid. Normal bladder. Status post tubal ligation. The uterus and adnexa appear normal for modality/technique. ABDOMINAL WALL: Tiny fat containing umbilical hernia. BONES: No significant or acute findings. OTHER: No other significant finding. IMPRESSION: No evidence of acute intra- abdominal infectious/ inflammatory process. Specifically, n o findings to correlate to the patient's reported right lower quadrant pain. TECHNICAL DOCUMENTATION: JOB ID: [id number] Quality ID # [id number]: Final reports with documentation of one or more dose reduction techniques (e.g., Au tomated exposure control, adjustment of the mA and/or kV according to patient size, use of iterative reconstruction technique) 2010 [employer]- All Rights Reserved Reading location - IP/workstation name: [email or web address]
[2019-07-01] MEDS ORDERED: MORPHINE SULFATE 10 MG/ML INJ IV ONE (17:46)
--- NOTE | 2019-07-01 17:57 | ER Document Report ---
ED GI/ - General Chief Complaint: Flank Pain Stated Complaint: RIGHT SIDE PAIN Time Seen by Provider: 07/01/19 13:46 Primary Care Provider: BETO HERNANDEZ MD [Primary Care Provider] - Follow up as needed Mode of Arrival: Ambulatory Information source: Patient Notes: 29-year-old female patient presenting to the emergency department chief complaint of right upper quadrant or right lower quadrant abdominal pain. Patient reports this is been ongoing for 2 days. She denies any fever, body aches or chills. She does report bloody stools but states that is been going on for several months. She states she is currently being seen by her primary care being worked up for Crohn's. She denies any previous surgeries on her abdomen. She states that she is unable to eat as every time she swallows any food she had severe pain in the right upper quadrant and epigastric area. TRAVEL OUTSIDE OF THE [place] IN LAST 30 DAYS: No - Related Data Allergies/Adverse Reactions: latex [Latex] Allergy (Severe, Verified 07/01/19 13:38) swelling Past Medical History - General Information source: Patient - Social History Smoking Status: Current Every Day Smoker Chew tobacco use (# tins/day): No Frequency of alcohol use: None Drug Abuse: None Family History: Reviewed & Not Pertinent, CAD, CVA, DM, Hypertension, Malignancy Patient has suicidal ideation: No Patient has homicidal ideation: No - Past Medical History Cardiac Medical History: Reports: Hx Heart Murmur Denies: Hx Coronary Artery Disease, Hx Hypertension Pulmonary Medical History: Denies: Hx Asthma, Hx COPD Neurological Medical History: Reports: Hx Seizures. Denies: Hx Cerebrovascular Accident Endocrine Medical History: Denies: Hx Diabetes Mellitus Type 1, Hx Diabetes Mellitus Type 2 Renal/ Medical History: Denies: Hx Peritoneal Dialysis GI Medical History: Reports: Hx Gastroesophageal Reflux Disease, Hx Ulcer - gastric hx of. Denies: Hx Hiatal Hernia Musculoskeletal Medical History: Denies Hx Arthritis, Denies Hx Gout Skin Medical History: Denies Hx Eczema, Denies Hx Psoriasis Psychiatric Medical History: Infectious Medical History: Denies: Hx HIV Past Surgical History: Reports: Hx Section - x 3, Hx Tubal Ligation - Immunizations Immunizations up to date: Yes Hx Diphtheria, Pertussis, Tetanus Vaccination: Yes - 2009 Review of Systems - Review of Systems Constitutional: No symptoms reported EENT: No symptoms reported Cardiovascular: No symptoms reported Respiratory: No symptoms reported Gastrointestinal: Abdominal pain, Blood streaked bowels Genitourinary: No symptoms reported Female Genitourinary: No symptoms reported Musculoskeletal: No symptoms reported Skin: No symptoms reported Hematologic/Lymphatic: No symptoms reported Neurological/Psychological: No symptoms reported Physical Exam - Vital signs Vitals: Temp Pulse Resp BP Pulse Ox 98.3 F 79 18 143/78 H 98 07/01/19 13:15 07/01/19 13:15 07/01/19 13:15 07/01/19 13:15 07/01/19 13:15 - Notes Notes: PHYSICAL EXAMINATION: GENERAL: Well-appearing, well-nourished and in no acute distress. HEAD: Atraumatic, normocephalic. EYES: Pupils equal round and reactive to light, extraocular movements intact, conjunctiva are normal. ENT: Nares patent, oropharynx clear without exudates. Moist mucous membranes. NECK: Normal range of motion, supple without lymphadenopathy LUNGS: Breath sounds clear to auscultation bilaterally and equal. No wheezes rales or rhonchi. HEART: Regular rate and rhythm without murmurs ABDOMEN: Soft, nondistended abdomen. Tenderness to palpation of right upper and right lower quadrants. No masses appreciated. Female : Mild right CVA tenderness. Musculoskeletal: Normal range of motion, no pitting or edema. No cyanosis. NEUROLOGICAL: Cranial nerves grossly intact. Normal speech, normal gait. Normal sensory, motor exams PSYCH: Normal mood, normal affect. SKIN: Warm, Dry, normal turgor, no rashes or lesions noted. Course - Re-evaluation Re-evalutation: Laboratory 07/01/19 07/01/19 07/01/19 14:03 14:03 14:03 WBC 8.8 RBC 4.70 Hgb 14.5 Hct 42.9 MCV 91 MCH 30.9 MCHC 33.9 RDW 13.2 Plt Count 126 L Lymph % (Auto) 29.2 [place] % (Auto) 9.0 Eos % (Auto) 2.4 Baso % (Auto) 0.4 Absolute Neuts (auto) 5.2 Absolute Lymphs (auto) 2.6 Absolute Monos (auto) 0.8 Absolute Eos (auto) 0.2 Absolute Basos (auto) 0.0 Seg Neutrophils % 59.0 Sodium 141.4 Potassium 4.3 Chloride 105 Carbon Dioxide 26 Anion Gap 10 BUN 12 Creatinine 0.63 Est GFR ( Amer) > 60 Est GFR (MDRD) Non-Af > 60 Glucose 84 Calcium 9.8 Total Bilirubin 0.8 Direct Bilirubin 0.0 Neonat Total Bilirubin Not Reportable Neonat Direct Bilirubin Not Reportable Neonat Indirect Bili Not Reportable AST 19 ALT 13 Alkaline Phosphatase 60 Total Protein 7.5 Albumin 4.5 Urine Color YELLOW Urine Appearance SLIGHTLY-CLOUDY Urine pH 5.0 Ur Specific [place] 1.035 Urine Protein NEGATIVE Urine Glucose (UA) NEGATIVE Urine Ketones NEGATIVE Urine Blood NEGATIVE Urine Nitrite NEGATIVE Urine Bilirubin NEGATIVE Urine Urobilinogen 2.0 H Ur Leukocyte Esterase TRACE H Urine WBC (Auto) 4 Urine RBC (Auto) 2 Squamous Epi Cells Auto 3 Urine Mucus (Auto) MANY Urine Ascorbic Acid NEGATIVE Abdomen/Pelvis CT 07/01/19 13:55 IMPRESSION: No evidence of acute intra- abdominal infectious/ inflammatory process. Specifically, no findings to correlate to the patient's reported right lower quadrant pain. Abdomen Ultrasound 07/01/19 17:48 IMPRESSION: NORMAL RIGHT UPPER QUADRANT ULTRASOUND. Work-up today has been unremarkable. Again patient is currently being worked up for Crohn's by her primary care physician. I feel this is most likely the cause of her abdominal pain today. She will be started on a course of steroids and she will follow-up with primary care. ED return precautions discussed, patient verbalized understanding and agreement with same. - Vital Signs Vital signs: Temp Pulse Resp BP Pulse Ox 97.8 F 72 20 113/39 L 96 07/01/19 19:53 07/01/19 19:53 07/01/19 19:53 07/01/19 19:53 07/01/19 19:53 - Laboratory Result Diagrams: 07/01/19 14:03 07/01/19 14:03 Laboratory results interpreted by me: 07/01/19 07/01/19 14:03 14:03 Plt Count 126 L Urine Urobilinogen 2.0 H Ur Leukocyte Esterase TRACE H Discharge - Discharge Clinical Impression: Abdominal pain Qualifiers: Abdominal location: unspecified location Qualified Code(s): R10.9 - Unspecified abdominal pain Condition: Stable Disposition: HOME, SELF-CARE Additional Instructions: Abdominal Pain There are many causes of abdominal pain. Pain can mean a serious problem requiring surgery (such as appendicitis). It can also be an innocent problem that goes away on its own (such as a viral infection). Often, time must pass to determine the cause of pain. The physician does not feel that hospitalization is necessary, at present. Things may change within the next 24 hours. Call the doctor or come back for re- examination if any problems occur, such as: (1) Pain that becomes more severe, steady, or becomes concentrated in one specific area. Also, pain that is more severe with movement or coughing. (2) Vomiting that persists or becomes more frequent. (3) Blood in the vomitus, urine, or bowel movements. Blood in the stool m ay have a tarry or black appearance. (4) Shaking chills or fever greater than 100 degrees F. (5) The abdomen becomes more distended or swollen. (6) Bowel movements cease. (7) Failure to improve as expected. Your work-up today did not reveal any acute abnormalities. I do suggest you continue following up with your primary care for your Crohn's work-up. I am starting on some steroids as this would help if this is a Crohn's flareup which is most likely the cause of your pain and, bloody stools. Prescriptions: Dicyclomine HCl [Bentyl 20 mg Tablet] 20 mg PO QID #20 tablet Prednisone [Sterapred Ds] 1 pkg PO ASDIR PRN 12 Days tab.ds.pk PRN Reason: Referrals: BETO HERNANDEZ MD [Primary Care Provider] - Follow up as needed
[2019-07-01] MEDS ORDERED: METHYLPREDNISOLONE INJ 125 MG/2 ML SDV IV ONE (17:59)
--- NOTE | 2019-07-01 19:16 | RADIOLOGY REPORT (SQ) ---
EXAM DESCRIPTION: U/S ABDOMEN LIMITED W/O DOP COMPLETED DATE/TIME: 07/01/2019 7:04 pm REASON FOR STUDY: RUQ pain COMPARISON: 09/30/2015 TECHNIQUE: Dynamic and static grayscale images acquired of the abdomen and recorded on PACS. Alexiso jami selected color Doppler and spectral images recorded. LIMITATIONS: None. FINDINGS: PANCREAS: No masses. Visualized pancreatic duct normal caliber. LIVER: No masses. Echotexture normal. LIVER VASCULATURE: Normal directional flow of the main portal vein and hepatic veins. GALLBLADDER: No stones. Normal wall thickness. No pericholecystic fluid. ULTRASOUND-DETECTED LANDIS'S SIGN: Negative. INTRAHEPATIC DUCTS AND COMMON DUCT: CBD and intrahepatic ducts normal caliber. No filling defects. INFERIOR VENA CAVA: Normal flow. AORTA: No aneurysm. RIGHT KIDNEY: Normal size. Normal echogenicity. No solid or suspicious masses. No hydronephrosis. No calcifications. PERITONEAL AND RIGHT PLEURAL SPACE: No ascites or effusions. OTHER: No other significant findings. IMPRESSION: NORMAL RIGHT UPPER QUADRANT ULTRASOUND. TECHNICAL DOCUMENTATION: JOB ID: [id number]- All Rights Reserved Reading location - IP/workstation name: [email or web address]
[2019-07-01 20:14] VITALS: BP 119/63
== END 2019-07-01 20:10 | disposition home or self-care (01) ==
LOC: ER 13:03
DX: R10.11 Right upper quadrant pain (principal); R10.13 Epigastric pain; R10.31 Right lower quadrant pain; R10.811 Right upper quadrant abdominal tenderness; R10.813 Right lower quadrant abdominal tenderness; K92.1 Melena; F17.200 Nicotine dependence, unspecified, uncomplicated; Z87.19 Personal history of other diseases of the digestive system; Z87.11 Personal history of peptic ulcer disease; Z91.040 Latex allergy status
CPT/HCPCS: 99284; 96361; 96374; 96375; 36415; 85025; 80053; 81001; 76705; 74177; J3010; J2930; J2270; J7030

== ENCOUNTER 2019-09-20 19:16 | Emergency (ER) | payer MEDICAID, OTHER ==
[2019-09-20 19:23] VITALS: BP 141/76
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
[2019-09-20] MEDS ORDERED: TETANUS/DIPHTHERIA TOX-ADULT 0.5 ML SYR (>=7YO) IM ONE (22:39)
[2019-09-21 00:16] LABS: ABSOLUTE EOSINOPHILS # (AUTO) 0.2 10^3/uL (0.0-0.6); ABSOLUTE LYMPHOCYTES (AUTO) 2.6 10^3/uL (0.5-4.7); ABSOLUTE MONOCYTES (AUTO) 0.7 10^3/uL (0.1-1.4); ABSOLUTE NEUT (AUTO) 4.2 10^3/uL (1.7-8.2); BASOPHILS % (AUTO) 0.5 % (0-2); EOSINOPHILS % (AUTO) 2.2 % (0-6); HEMOGLOBIN 13.2 g/dL (12.0-15.5); LYMPHOCYTES % (AUTO) 33.7 % (13-45); MEAN CORPUSCULAR HEMOGLOBIN 30.7 pg (27.0-33.4); MEAN CORPUSCULAR VOLUME 90 fl (80-97); MONOCYTES % (AUTO) 8.7 % (3-13); PLATELET COUNT 153 10^3/uL (150-450); RED BLOOD COUNT 4.31 10^6/uL (3.72-5.28); RED CELL DISTRIBUTION WIDTH 13.4 % (11.5-14.0); SEGMENTED NEUTROPHILS % (AUTO) 54.9 % (42-78); TOTAL CELLS COUNTED % (AUTO) 100 %; WHITE BLOOD COUNT 7.6 10^3/uL (4.0-10.5)
[2019-09-21 00:26] LABS: ALBUMIN 4.2 g/dL (3.5-5.0); ALKALINE PHOSPHATASE 68 U/L (38-126); ANION GAP 8 (5-19); ASPARTATE AMINO TRANSFERASE 13 U/L (14-36); BILIRUBIN,TOTAL 0.5 mg/dL (0.2-1.3); BLOOD UREA NITROGEN 19 mg/dL (7-20); CALCIUM 9.2 mg/dL (8.4-10.2); CARBON DIOXIDE 23 mmol/L (22-30); CHLORIDE 108 mmol/L (98-107); GLUCOSE 80 mg/dL (75-110); POTASSIUM 3.4 mmol/L (3.6-5.0); TOTAL PROTEIN 6.9 g/dL (6.3-8.2)
[2019-09-21] MEDS ORDERED: LIDOCAINE 1% INJ-PF (10 MG/ML) 30 ML SDV NEB ONE (01:04)
[2019-09-21] MEDS ORDERED: CEFTRIAXONE INJ 1000 MG VIAL IM ONE (01:04)
[2019-09-21] MEDS ORDERED: AZITHROMYCIN 250 MG TABLET PO ONE (01:04)
[2019-09-21 01:54] LABS: BACTERIA (WET MOUNT) 4+ BACTERIA SEEN; EPITHELIALS (WET MOUNT) 3+ EPITHELIALS SEEN; RBCS (WET MOUNT) FEW RBCS SEEN; T.VAGINALIS (WET MOUNT) TRICHOMONAS SEEN; WBCS (WET MOUNT) 4+ WBCS SEEN; YEAST (WET MOUNT) NO YEAST SEEN
[2019-09-21 02:42] LABS: CHLAM PCR NOT DETECTED (NOT DETECT)
[2019-09-22 07:37] LABS: HEPATITS B SURFACE ANTIGEN Negative (Negative)
[2019-09-22 13:18] LABS: HEPATITIS C VIRUS ANTIBODY <0.1 s/co ratio (0.0-0.9)
== END 2019-09-21 05:11 | disposition left against medical advice (07) ==
LOC: ER 19:16
DX: T76.21XA Adult sexual abuse, suspected, initial encounter (principal); A59.00 Urogenital trichomoniasis, unspecified; Y08.89XA Assault by other specified means, initial encounter; Y92.009 Unspecified place in unspecified non-institutional (private) residence as the place of occurrence of the external cause; F17.210 Nicotine dependence, cigarettes, uncomplicated
CPT/HCPCS: 36415; 80053; 80074; 85025; 86592; 86701; 87210; 87491; 87591; 99281

== ENCOUNTER 2019-12-13 15:58 | Emergency (ER) | payer MEDICAID, OTHER ==
[2019-12-13] MEDS ORDERED: KETOROLAC TROMETHAMINE INJ/PF 30 MG/1 ML SDV IM ONE (16:26)
--- NOTE | 2019-12-13 16:28 | ER Document Report ---
ED Medical Screen (RME) - General Chief Complaint: Flank Pain Stated Complaint: FLANK PAIN/VAGINAL BLEEDING Time Seen by Provider: 12/13/19 16:26 Primary Care Provider: BETO HERNANDEZ MD [Primary Care Provider] - Follow up as needed Mode of Arrival: Ambulatory Information source: Patient Notes: 29-year-old female presented to ED for complaint of left flank pain. She states it started with a blood clot and then she started having a lot of blood in her urine. She states her last menstrual period was November 21 as she knows is not a.. She has no nausea no vomiting just a lot of pain on the left flank. She states her only past medical history is epilepsy. She is alert oriented respirations regular and unlabored speaking in full sentences. I have greeted and performed a rapid initial assessment of this patient. A comprehensive ED assessment and evaluation of the patient, analysis of test results and completion of medical decision making process will be conducted by an additional ED providers. TRAVEL OUTSIDE OF THE [place] IN LAST 30 DAYS: No - Related Data Allergies/Adverse Reactions: latex [Latex] Allergy (Severe, Verified 12/13/19 16:20) swelling Past Medical History - Social History Frequency of alcohol use: None Drug Abuse: None - Past Medical History Cardiac Medical History: Reports: Hx Heart Murmur Denies: Hx Coronary Artery Disease, Hx Hypertension Pulmonary Medical History: Denies: Hx Asthma, Hx COPD Neurological Medical History: Reports: Hx Seizures. Denies: Hx Cerebrovascular Accident Endocrine Medical History: Denies: Hx Diabetes Mellitus Type 1, Hx Diabetes Mellitus Type 2 Renal/ Medical History: Denies: Hx Peritoneal Dialysis GI Medical History: Reports: Hx Gastroesophageal Reflux Disease, Hx Ulcer - gastric hx of. Denies: Hx Hiatal Hernia Musculoskeltal Medical History: Denies Hx Arthritis, Denies Hx Gout Skin Medical History: Denies Hx Eczema, Denies Hx Psoriasis Psychiatric Medical History: Infectious Medical History: Denies: Hx HIV Past Surgical History: Reports: Hx Section - x 3, Hx Tubal Ligation - Immunizations Immunizations up to date: Yes Hx Diphtheria, Pertussis, Tetanus Vaccination: Yes - 2009 Physical Exam - Vital signs Vitals: Temp Pulse Resp BP Pulse Ox 98.5 F 70 16 143/89 H 98 12/13/19 16:11 12/13/19 16:11 12/13/19 16:11 12/13/19 16:11 12/13/19 16:11 Course - Vital Signs Vital signs: Temp Pulse Resp BP Pulse Ox 98.5 F 70 16 143/89 H 98 12/13/19 16:21 12/13/19 16:11 12/13/19 16:11 12/13/19 16:11 12/13/19 16:11 Doctor's Discharge - Discharge Referrals: BETO HERNANDEZ MD [Primary Care Provider] - Follow up as needed
[2019-12-13 17:13] LABS: ABSOLUTE EOSINOPHILS # (AUTO) 0.1 10^3/uL (0.0-0.6); ABSOLUTE LYMPHOCYTES (AUTO) 2.3 10^3/uL (0.5-4.7); ABSOLUTE MONOCYTES (AUTO) 0.8 10^3/uL (0.1-1.4); ABSOLUTE NEUT (AUTO) 5.9 10^3/uL (1.7-8.2); BASOPHILS % (AUTO) 0.4 % (0-2); EOSINOPHILS % (AUTO) 1.4 % (0-6); HEMATOCRIT 41.2 % (36.0-47.0); HEMOGLOBIN 14.1 g/dL (12.0-15.5); LYMPHOCYTES % (AUTO) 24.7 % (13-45); MEAN CORPUSCULAR HEMOGLOBIN 30.6 pg (27.0-33.4); MEAN CORPUSCULAR HGB CONC 34.3 g/dL (32.0-36.0); MEAN CORPUSCULAR VOLUME 89 fl (80-97); MONOCYTES % (AUTO) 8.4 % (3-13); PLATELET COUNT 121 10^3/uL (150-450); RED BLOOD COUNT 4.62 10^6/uL (3.72-5.28); RED CELL DISTRIBUTION WIDTH 14.3 % (11.5-14.0); SEGMENTED NEUTROPHILS % (AUTO) 65.1 % (42-78); TOTAL CELLS COUNTED % (AUTO) 100 %; WHITE BLOOD COUNT 9.1 10^3/uL (4.0-10.5)
[2019-12-13 17:25] LABS: AMORPHOUS SEDIMENT,URINE TRACE /HPF; APPEARANCE,URINE CLOUDY; BILIRUBIN,URINE NEGATIVE (NEGATIVE); COLOR,URINE YELLOW; GLUCOSE, URINE NEGATIVE (NEGATIVE); KETONES,URINE NEGATIVE (NEGATIVE); LEUKOCYTE ESTERASE,URINE NEGATIVE (NEGATIVE); NITRITE,URINE NEGATIVE (NEGATIVE); PROTEIN,URINE NEGATIVE (NEGATIVE); URINE SPECIFIC GRAVITY 1.011; UROBILINOGEN,URINE NEGATIVE mg/dL (<2.0)
[2019-12-13 17:32] LABS: ALBUMIN 4.4 g/dL (3.5-5.0); ALKALINE PHOSPHATASE 65 U/L (38-126); ANION GAP 9 (5-19); ASPARTATE AMINO TRANSFERASE 15 U/L (14-36); BILIRUBIN,TOTAL 0.5 mg/dL (0.2-1.3); BLOOD UREA NITROGEN 13 mg/dL (7-20); CALCIUM 10.1 mg/dL (8.4-10.2); CARBON DIOXIDE 24 mmol/L (22-30); CHLORIDE 107 mmol/L (98-107); GLUCOSE 86 mg/dL (75-110); POTASSIUM 3.9 mmol/L (3.6-5.0); TOTAL PROTEIN 7.3 g/dL (6.3-8.2)
--- NOTE | 2019-12-13 18:10 | RADIOLOGY REPORT (SQ) ---
EXAM DESCRIPTION: CT ABD/PELVIS NO ORAL OR IV IMAGES COMPLETED DATE/TIME: 12/13/2019 5:44 pm REASON FOR STUDY: Left flank pain COMPARISON: 12/09/2015 TECHNIQUE: CT scan of the abdomen and pelvis performed without intravenous or oral contrast. Images reviewed with lung, soft tissue, and bone windows. Reconstructed coronal and sagittal MPR images revi ewed. All images stored on PACS. All CT scanners at this facility use dose modulation, iterative reconstruction, and/or weight based d osing when appropriate to reduce radiation dose to as low as reasonably achievable (ALARA). [facility]: Dose Right [facility]: CareDose [facility]: Dose Right [facility]: Teradose 4D [facility]: Smart ISBX RADIATION DOSE: CT Rad equipment meets quality standard of care and radiation dose reduction techniq ues were employed. CTDIvol: 5.0 mGy. DLP: 252 mGy-cm.mGy. LIMITATIONS: None. FINDINGS: LOWER CHEST: No significant findings. No nodules or infiltrates. NON-CONTRASTED LIVER, SPLEEN, ADRENALS: Evaluation limited by lack of IV contrast. No identified sign ificant masses. PANCREAS: No masses. No peripancreatic inflammatory changes. GALLBLADDER: Contracted. No stones. RIGHT KIDNEY AND URETER: No suspicious masses. Assessment limited by lack of IV contrast. No signif icant calcifications. No hydronephrosis or hydroureter. LEFT KIDNEY AND URETER: No suspicious masses. Assessment limited by lack of IV contrast. No signifi cant calcifications. No hydronephrosis or hydroureter. AORTA AND RETROPERITONEUM: No aneurysm. No retroperitoneal masses or adenopathy. BOWEL AND PERITONEAL CAVITY: No obvious masses or inflammatory changes. No free fluid. APPENDIX: Normal. PELVIS, BLADDER, AND ABDOMINAL WALL:No abnormal masses. No free fluid. Bladder normal. BONES: No significant findings. OTHER: No other significant finding. IMPRESSION: NO SIGNIFICANT OR ACUTE PROCESS IN THE ABDOMEN OR PELVIS. COMMENT: Quality ID # [id number]: Final reports with documentation of one or more dose reduction techniques (e.g., Automated exposure control, adjustment of the mA and/or kV according to patient size, use of iterative reconstruction technique) TECHNICAL DOCUMENTATION: JOB ID: [id number] 2010 [employer]- All Rights Reserved Reading location - IP/workstation name: [email or web address]
[2019-12-13] MEDS ORDERED: OXYCODONE-ACETAMINOPHEN 5-325 MG TABLET PO ONE (19:57)
[2019-12-13] MEDS ORDERED: CEPHALEXIN 500 MG CAPSULE PO ONE (19:57)
--- NOTE | 2019-12-13 19:59 | ER Document Report ---
ED General - General Chief Complaint: Flank Pain Stated Complaint: FLANK PAIN/VAGINAL BLEEDING Time Seen by Provider: 12/13/19 16:26 Primary Care Provider: BETO HERNANDEZ MD [Primary Care Provider] - Follow up as needed Mode of Arrival: Ambulatory TRAVEL OUTSIDE OF THE [place] IN LAST 30 DAYS: No - HPI Notes: Patient is a 29-year-old female who presents to the emergency department for evaluation of left flank pain. She states she woke up this morning and pain under her left ribs, and into her back. She described it as sharp. Is worsened by movement. It is not worsened by deep breaths. She states that later she went to urinate, she states she noticed a blood clot. There is blood when she wipes after urination. No other bleeding. She has had no fevers or chills. No nausea or vomiting. She does note some urinary frequency this been happening throughout the day as well. Normal bowel movements. - Related Data Allergies/Adverse Reactions: latex [Latex] Allergy (Severe, Verified 12/13/19 16:20) swelling Home Medications: Topamax Past Medical History - General Information source: Patient - Social History Smoking Status: Current Every Day Smoker Frequency of alcohol use: None Drug Abuse: None Family History: Reviewed & Not Pertinent, CAD, CVA, DM, Hypertension, Malignancy Patient has homicidal ideation: No - Past Medical History Cardiac Medical History: Reports: Hx Heart Murmur Denies: Hx Coronary Artery Disease, Hx Hypertension Pulmonary Medical History: Denies: Hx Asthma, Hx COPD Neurological Medical History: Reports: Hx Seizures. Denies: Hx Cerebrovascular Accident Endocrine Medical History: Denies: Hx Diabetes Mellitus Type 1, Hx Diabetes Mellitus Type 2 Renal/ Medical History: Denies: Hx Peritoneal Dialysis GI Medical History: Reports: Hx Gastroesophageal Reflux Disease, Hx Ulcer - gastric hx of. Denies: Hx Hiatal Hernia Musculoskeletal Medical History: Denies Hx Arthritis, Denies Hx Gout Skin Medical History: Denies Hx Eczema, Denies Hx Psoriasis Psychiatric Medical History: Infectious Medical History: Denies: Hx HIV Past Surgical History: Reports: Hx Section - x 3, Hx Tubal Ligation - Immunizations Immunizations up to date: Yes Hx Diphtheria, Pertussis, Tetanus Vaccination: Yes - 2009 Review of Systems - Review of Systems Genitourinary: See HPI Musculoskeletal: See HPI -: Yes All other systems reviewed and negative Physical Exam - Vital signs Vitals: Temp Pulse Resp BP Pulse Ox 98.5 F 70 16 143/89 H 98 12/13/19 16:11 12/13/19 16:11 12/13/19 16:11 12/13/19 16:11 12/13/19 16:11 - Notes Notes: Vital signs reviewed, please refer to chart. Head is normocephalic, atraumatic. Pupils equal round, reactive to light. Neck is supple without meningismus. Heart is regular rate and rhythm. Lungs are clear to auscultation bilaterally. Abdomen is soft, mildly tender in the suprapubic region, normoactive bowel sounds throughout. CVA tenderness noted on the left. Extremities without cyanosis, clubbing. Posterior calves are nontender. Peripheral pulses are equal. Skin is warm and dry. Patient is awake, alert, neurological exam is nonfocal. Course - Re-evaluation Re-evalutation: 12/13/19 20:01 Patient presents to the emergency department for evaluation. She was initially seen through triage. She had laboratory investigations as ordered. She had hematuria noted, but no other significant lab abnormalities. CT scan of the abdomen and pelvis failed to reveal any acute intra-abdominal process. Given her symptoms, I do believe she has a diet. She does have some left flank pain, but fails to have any significant leukocytosis, fevers, nausea, or vomiting. She is given Toradol and Percocet here to help her with her pain. I will start on some antibiotics. I will send her urine for culture. She is to follow-up with primary care next week, return to the emergency department worsening or new concerning symptoms of any sort. - Vital Signs Vital signs: Temp Pulse Resp BP Pulse Ox 98.5 F 70 16 143/89 H 98 12/13/19 16:21 12/13/19 16:11 12/13/19 16:11 12/13/19 16:11 12/13/19 16:11 - Laboratory Result Diagrams: 12/13/19 16:40 12/13/19 16:40 Laboratory results interpreted by me: 12/13/19 12/13/19 16:40 16:40 RDW 14.3 H Plt Count 121 L Urine Blood MODERATE H - Diagnostic Test Radiology reviewed: Reports reviewed Radiology results interpreted by me: 05/27/20 20:01 Abdomen/Pelvis CT 12/13/19 16:27 IMPRESSION: NO SIGNIFICANT OR ACUTE PROCESS IN THE ABDOMEN OR PELVIS. Discharge - Discharge Clinical Impression: Urinary tract infection Qualifiers: Urinary tract infection type: acute cystitis Hematuria presence: with hematuria Qualified Code(s): N30.01 - Acute cystitis with hematuria Condition: Stable Disposition: HOME, SELF-CARE Instructions: Cephalexin ([facility]), Urinary Tract Infection ([facility]) Additional Instructions: Take all the antibiotic as prescribed until gone. Take Tylenol or ibuprofen at home as needed for pain. Stay well-hydrated. Your urine has been sent for culture, you will be contacted if your infection is caused by bacteria resistant to the medication you have been prescribed. Follow-up with your primary care provider next week. If you develop fevers, vomiting, worsening pain, or any other new or concerning symptoms, please return immediately to the emergency department for evaluation. Referrals: BETO HERNANDEZ MD [Primary Care Provider] - Follow up as needed
[2019-12-13 20:34] VITALS: BP 118/68
== END 2019-12-13 20:34 | disposition home or self-care (01) ==
LOC: ER 15:58
DX: N30.01 Acute cystitis with hematuria (principal); R10.9 Unspecified abdominal pain; N93.9 Abnormal uterine and vaginal bleeding, unspecified; R07.81 Pleurodynia; M54.9 Dorsalgia, unspecified; R35.0 Frequency of micturition; Z88.8 Allergy status to other drugs, medicaments and biological substances; F17.200 Nicotine dependence, unspecified, uncomplicated
CPT/HCPCS: 99283; 96372; 36415; 87086; 84703; 85025; 80053; 81001; 74176; J1885; 87088

== ENCOUNTER 2020-01-26 06:53 | Day surgery (SDC) | payer MEDICAID ==
[2020-01-26] MEDS ORDERED: PROPOFOL INJ 200 MG/20 ML VIAL IV ONE (07:54)
--- NOTE | 2020-01-26 08:56 | Operative Report ---
Operative Report DATE OF SURGERY: 01/26/20 Operative Report: The risk, benefits and alternatives of the procedure including the risks of bleeding, perforation requiring surgery have been explained to the patient in detail and informed consent has been obtained. The patient is placed in a left, lateral decubital position. Timeout was called. Propofol medication is administered. Rectal examination is done which did not reveal any masses, tears or fissures. An Olympus videoscope was introduced into the patient's rectum. Scope was then carefully advanced all the way to the cecum. The cecum was identified by the usual anatomical landmarks including the ileocecal valve as well as the appendiceal office. Photodocumentation is obtained. Scope was then sequentially pulled back via the rest segments of the colon including the ascending colon, hepatic flexure, transverse colon, splenic flexure, descending colon finding to the rectosigmoid portions of the colon. Retroflexion maneuvers performed. PREOPERATIVE DIAGNOSIS: Rectal bleeding POSTOPERATIVE DIAGNOSIS: Internal hemorrhoids. Mild terminal ileitis status post biopsy OPERATION: Colonoscopy with biopsy SURGEON: NEW [place] ANESTHESIA: LMAC TISSUE REMOVED OR ALTERED: As noted above. COMPLICATIONS: None. ESTIMATED BLOOD LOSS: None. INTRAOPERATIVE FINDINGS: As noted above. PROCEDURE: Patient tolerated the procedure well. No immediate postprocedure complications are noted. Patient is discharged in good condition. Discharge date 01/26/2020. Discharge diet: Regular. Discharge activity: Regular. 2 to 3-week follow-up to discuss findings. Patient is instructed call the office or proceed to the emergency room should there be any further problems or questions. Wait on the pathology.
[2020-01-26 10:16] VITALS: BP 129/80
== END 2020-01-26 09:50 | disposition home or self-care (01) ==
LOC: END 06:53
PROVIDERS: ATTEND Internal Medicine Gastroenterology
DX: K64.8 Other hemorrhoids (principal); K52.9 Noninfective gastroenteritis and colitis, unspecified; K62.5 Hemorrhage of anus and rectum; Z03.818 Encounter for observation for suspected exposure to other biological agents ruled out; J45.909 Unspecified asthma, uncomplicated; D64.9 Anemia, unspecified; G40.909 Epilepsy, unspecified, not intractable, without status epilepticus; R01.1 Cardiac murmur, unspecified
CPT/HCPCS: 45380; 87635; 88305 ×2; J2704; C9803; 811

== ENCOUNTER 2020-03-12 15:26 | Emergency (ER) | payer MEDICAID ==
[2020-03-12 15:55] VITALS: BP 121/68
--- NOTE | 2020-03-12 16:23 | ER Document Report ---
HPI - HPI Time Seen by Provider: 03/12/20 16:14 Pain Level: 4 Notes: 29-year-old female presents emergency room for evaluation of left foot pain that started 5 days ago and now is radiating up to her left ankle. Patient reports pain is 3 out of 5, throbbing achy. Has tried soaking it without relief. Denies any trauma or fall to her foot. Denies any previous injury. Has not been seen by her primary care for this issue. MEDICATIONS: I agree with the patient medications as charted by the RN. ALLERGIES: I agree with the allergies as charted by the RN. PAST MEDICAL HISTORY/PAST SURGICAL HISTORY: Reviewed and agree as charted by RN. SOCIAL HISTORY: Reviewed and agree as charted by RN. FAMILY HISTORY: No significant familial comorbid conditions directly related to patient complaint EXAM: Reviewed vital signs as charted by RN. REVIEW OF SYSTEMS:reviewed vital signs by RN CONSTITUTIONAL : Denies fever, chills, or sweats. Denies recent illness. EENT: Denies eye, ear, throat, or mouth pain or symptoms. Denies nasal or sinus congestion or discharge. Denies throat, tongue, or mouth swelling or difficulty swallowing. CARDIOVASCULAR: Denies chest pain. Denies palpitations or racing or irregular heart beat. Denies ankle edema. RESPIRATORY: Denies cough, cold, or chest congestion. Denies shortness of breath, difficulty breathing, or wheezing. GASTROINTESTINAL: Denies abdominal pain or distention. Denies nausea, vomiting, or diarrhea. Denies blood in vomitus, stools, or per rectum. Denies black, tarry stools. Denies constipation. GENITOURINARY: Denies difficulty urinating, painful urination, burning, frequency, blood in urine, or discharge. FEMALE GENITOURINARY: Denies vaginal bleeding, heavy or abnormal periods, irregular periods. Denies vaginal discharge or odor. MUSCULOSKELETAL: Reports left foot pain. denies back or neck pain or stiffness. Denies joint pain or swelling. SKIN: Denies rash, lesions or sores. HEMATOLOGIC : Denies easy bruising or bleeding. LYMPHATIC: Denies swollen, enlarged glands. NEUROLOGICAL: Denies confusion or altered mental status. Denies passing out or loss of consciousness. Denies dizziness or lightheadedness. Denies headache. Denies weakness or paralysis or loss of use of either side. Denies problems with gait or speech. Denies sensory loss, numbness, or tingling. Denies seizures. PSYCHIATRIC: Denies anxiety or stress. Denies depression, suicidal ideation, or homicidal ideation. ALL OTHER SYSTEMS REVIEWED AND NEGATIVE. PHYSICAL EXAMINATION: GENERAL: Well-appearing, well-nourished and in no acute distress. HEAD: Atraumatic, normocephalic. EYES: Pupils equal round and reactive to light, extraocular movements intact, conjunctiva are normal. ENT: Nares patent, oropharynx clear without exudates. Moist mucous membranes. NECK: Normal range of motion, supple without lymphadenopathy LUNGS: Breath sounds clear to auscultation bilaterally and equal. No wheezes rales or rhonchi. HEART: Regular rate and rhythm without murmurs ABDOMEN: Soft, nontender, nondistended abdomen. No guarding, no rebound. No masses appreciated. Female : deferred Musculoskeletal: Normal range of motion, no pitting or edema. No cyanosis. left foot with STS and tenderness on plantar aspect with palpation. Unable to palpate a step-off. No open lesions. squeeze test negative. dtr +2 BLE. Limited APROM. distal pulses + 2 in BUE. full motor and sensory function. No vascular compromise. Ankle exam within normal limits. No noted lacerations, lesions, ulcers or break in the skin. NEUROLOGICAL: Cranial nerves grossly intact. Normal speech, normal gait. Normal sensory, motor exams PSYCH: Normal mood, normal affect. SKIN: Warm, Dry, normal turgor, no rashes or lesions noted. Dictation was performed using [employer] voice recognition software - REPRODUCTIVE Reproductive: DENIES: : Past Medical History - General Information source: Patient - Social History Smoking Status: Current Every Day Smoker Frequency of alcohol use: Occasional Drug Abuse: None Family History: Reviewed & Not Pertinent, CAD, CVA, DM, Hypertension, Malignancy - Past Medical History Cardiac Medical History: Reports: Hx Heart Murmur Denies: Hx Coronary Artery Disease, Hx Heart Attack, Hx Hypertension Pulmonary Medical History: Denies: Hx Asthma, Hx Bronchitis, Hx COPD, Hx Pneumonia Neurological Medical History: Reports: Hx Seizures - no meds last x 1 mo ago. Denies: Hx Cerebrovascular Accident Endocrine Medical History: Denies: Hx Diabetes Mellitus Type 1, Hx Diabetes Mellitus Type 2 Renal/ Medical History: Denies: Hx Peritoneal Dialysis GI Medical History: Reports: Hx Gastroesophageal Reflux Disease, Hx Ulcer - gastric hx of. Denies: Hx Hiatal Hernia Musculoskeletal Medical History: Denies Hx Arthritis, Denies Hx Gout Skin Medical History: Denies Hx Eczema, Denies Hx Psoriasis Psychiatric Medical History: Infectious Medical History: Denies: Hx HIV Past Surgical History: Reports: Hx Section - x 3, Hx Tubal Ligation - Immunizations Immunizations up to date: Yes Hx Diphtheria, Pertussis, Tetanus Vaccination: Yes - 2009 Vertical Provider Document - CONSTITUTIONAL Agree With Documented VS: Yes Exam Limitations: No Limitations General Appearance: WD/WN - INFECTION CONTROL TRAVEL OUTSIDE OF THE [place] IN LAST 30 DAYS: No Course - Re-evaluation Re-evalutation: 03/12/20 17:18 Afebrile vital stable no distress. Nurses notes reviewed. X-ray negative for any acute fracture, foreign body or dislocation of left foot. Discussed with patient that she does need to follow-up with podiatry as well as her primary care provider, patient given crutches and a postop shoe for her left foot. Advised to take meloxicam as directed, do not take any other NSAIDs. After performing a Medical Screening Examination, I estimate there is LOW risk for OPEN FRACTURE, COMPARTMENT SYNDROME, DEEP VENOUS THROMBOSIS, ACUTE TENDON RUPTURE, or NEUROVASCULAR INJURY thus I consider the discharge disposition reasonable. I have reevaluated this patient multiple times and no significant life threatening changes are noted. The patient and I have discussed the diagnosis and risks, and we agree with discharging home to closely follow-up with their primary doctor or the referral orthopedist with the understanding that symptoms and presentations can change. We also discussed returning to the Emergency Department immediately if new or worsening symptoms occur. We have discussed the symptoms which are most concerning (e.g., changing or worsening pain, numbness, weakness) that necessitate immediate return - Vital Signs Vital signs: Temp Pulse Resp BP Pulse Ox 98.1 F 73 16 121/68 99 03/12/20 15:54 03/12/20 15:54 03/12/20 15:54 03/12/20 15:54 03/12/20 15:54 Discharge - Discharge Clinical Impression: Left foot pain Condition: Stable Disposition: HOME, SELF-CARE Additional Instructions: Your foot pain is likely due to your callus formation which likely is from a plantar wart that you have on the bottom of your left foot. Your x-rays were negative for any foreign bodies, fracture or dislocation. You were given crutches and a postop shoe to help ambulate. It is recommended that you follow- up with either your primary care provider or psychology intern for further evaluation of your callus. Return immediately for any new or worsening symptoms. Follow up with primary care provider, call tomorrow to make followup appointment. Prescriptions: Meloxicam [Mobic] 7.5 mg PO DAILY #7 tablet Referrals: BETO HERNANDEZ MD [Primary Care Provider] - Follow up as needed CAROLE REA DPM [ACTIVE STAFF] - Follow up as needed
--- NOTE | 2020-03-12 17:03 | RADIOLOGY REPORT (SQ) ---
EXAM DESCRIPTION: FOOT LEFT COMPLETE IMAGES COMPLETED DATE/TIME: 03/12/2020 4:45 pm REASON FOR STUDY: left foot pain x 5 days, r/o fx or fb COMPARISON: None. NUMBER OF VIEWS: Three views. TECHNIQUE: AP, lateral and oblique radiographic images acquired of the left foot. LIMITATIONS: None. FINDINGS: MINERALIZATION: Normal. BONES: No acute fracture or dislocation. No worrisome bone lesions. JOINTS: Subluxations at the proximal interphalangeal joint second through the fourth toes. SOFT TISSUES: No soft tissue swelling. No foreign body. OTHER: No other significant finding. IMPRESSION: 1. No acute osseous findings. No evidence of foreign objects. 2. Subluxations at the proximal interphalangeal joint second through fourth toes. TECHNICAL DOCUMENTATION: JOB ID: [id number] 2010 [employer]- All Rights Reserved Reading location - IP/workstation name: [email or web address]
[2020-03-12] MEDS ORDERED: IBUPROFEN 800 MG TABLET PO ONE (17:25)
== END 2020-03-12 17:36 | disposition home or self-care (01) ==
LOC: ER 15:26
DX: M79.672 Pain in left foot (principal); M25.572 Pain in left ankle and joints of left foot; F17.200 Nicotine dependence, unspecified, uncomplicated
CPT/HCPCS: 99283; 73630; J3490